=== PATIENT | male | born 1955 | race Two or more races ===

== ENCOUNTER 2018-11-15 13:14 | Inpatient (IN) | payer MEDICAID ==
[~2018-11-15] VITALS: Ht 165.1 cm; Wt 67.1 kg
--- NOTE | 2018-11-15 13:59 | NUR ---
"WEAKNESS X 1 MONTH WITH RASH ON L LOWER BACK X 2 DAYS" PT AAOX4, -SOB, NAD NOTED, VSS ,PENDING MD MILLER
[2018-11-15 14:23] LABS: BASOPHILS # (AUTO) 0.1 /CMM (0.0-0.2); EOSINOPHILS % (AUTO) 8.5 % (0.0-6.0); HEMATOCRIT 30 % (39-51); HEMOGLOBIN 10.3 g/dL (13.5-17.5); LYMPHOCYTES # (AUTO) 0.9 /CMM (0.8-4.8); LYMPHOCYTES % (AUTO) 13.8 % (20.0-44.0); MEAN CORPUSCULAR HGB CONC 34 g/dl (31.0-36.0); MEAN CORPUSCULAR VOLUME 96 fL (80-96); MONOCYTES # (AUTO) 0.9 /CMM (0.1-1.30); NEUTROPHILS # (AUTO) 4.2 /CMM (1.8-8.9); NEUTROPHILS % (AUTO) 63.7 % (43.0-81.0); PLATELET COUNT (AUTO) 218 /CMM (150-450); RED BLOOD CELL COUNT(AUTO) 3.14 MIL/uL (4.5-6.0); WHITE BLOOD COUNT (AUTO) 6.7 K/uL (4.3-11.0)
[2018-11-15] MEDS ORDERED: KETOROLAC TROMETHAMINE INJ 30 MG/ML VIAL IV ONE (14:30)
[2018-11-15] MEDS ORDERED: ONDANSETRON HCL/PF 4 MG/2 ML VIAL IVP ONE (14:30)
[2018-11-15] MEDS ORDERED: IV NS 0.9% 1,000 ML BAG IV ONE ×2 (14:30→15:30)
[2018-11-15 14:31] LABS: CALCIUM, SERUM 8.5 mg/dL (8.5-10.1); CREATININE 5.9 mg/dL (0.6-1.3); POTASSIUM 5.4 mmol/L (3.5-5.1)
--- NOTE | 2018-11-15 14:34 | NUR ---
ORDER FOR TORADOL 15MG IVP. PULLED TORADOL 30MG, WASTED 15MG, GIVEN TORADOL 15MG IVP ON LAC20
[2018-11-15] MEDS ORDERED: KETOROLAC TROMETHAMINE INJ 30 MG/ML VIAL ONE (14:36)
[2018-11-15] MEDS ORDERED: ONDANSETRON HCL/PF 4 MG/2 ML VIAL ONE (14:36)
[2018-11-15 14:37] LABS: ALBUMIN 3.2 g/dL (3.4-5.0); BILIRUBIN,DIRECT 0.1 mg/dL (0.0-0.2); BILIRUBIN,TOTAL 0.3 mg/dL (0.2-1.0); TOTAL PROTEIN, SERUM 7.8 g/dL (6.4-8.2)
[2018-11-15] MEDS ORDERED: ACYCLOVIR 200 MG CAPSULE PO ONE (16:30)
[2018-11-15] MEDS ORDERED: ACYCLOVIR 200 MG CAPSULE ONE (16:30)
--- NOTE | 2018-11-15 16:36 | NUR ---
CALLED FOR BED, TURNED IN MOVE SHEET
[2018-11-15 16:39] LABS: APPEARANCE,URINE Clear (CLEAR); BILIRUBIN,URINE Negative (NEGATIVE); BLOOD, URINE Small Ery/uL (NEGATIVE); COLOR,URINE Yellow (YELLOW); KETONES,URINE Negative (NEGATIVE); LEUKOCYTE ESTERASE ,URINE Negative (NEGATIVE); NITRITE, URINE Negative (NEGATIVE); PROTEIN,URINE >=300 mg/dl (NEGATIVE); UGLUCOSE 250 MG/DL mg/dL (NEGATIVE); UROBILINOGEN,URINE 0.2 EU/dL (0.2)
--- NOTE | 2018-11-15 16:59 | NUR ---
CALLED FOR COURTNEY JAY. OFFICE PAGED , WAITING FOR CALL BACK
[2018-11-15 17:06] LABS: BACTERIA,URINE Few /HPF (None Seen); SQUAMOUS EPITHELIAL CELL,UR Few /HPF (None Seen); WBC,URINE 0-2 /HPF (0-3)
--- NOTE | 2018-11-15 17:07 | NUR ---
REPORT GIVEN TO NIGEL GAYTAN FOR MARIANELA; PT WILL BE TRANSPORTED 1ST FLOOR
--- NOTE | 2018-11-15 17:20 | NUR ---
MS NURSE SEXUAL ASSAULT NOTES RECEIVED PT FROM ER TO ROOM 113-2.REPORT GIVEN BY SIMBA MANNING IN ER.PT IS LERT/ORIENTED X4,ESTONIAN SPEAKING.CAN AMBULATE WELL WITH MINIMAL ASSISTANCE.SKIN ASSESSMENT IS DONE NOTED WITH RASHES ON RIGHT LOWER BACK.PHOTOS HAS TAKEN AND PLACED IN THE CHART.IV LINE SI ON LEFT AC G20 WITH IV FLUIDS NS @100ML/HR IS RUNNING.SITE IS CLEAN,DRY AND INTACT.NO INFILTRATION NOTED.VITAL SIGNS ARE CHECKED AND RECORDED.FAMILY IS AT BEDSIDE.BED IS IN LOW POSITION AND LOCKED.CALL LIGHT IS WITHIN REACH.WILL CONTINUE TO MONITOR THE PT CLOSELY.
[2018-11-15 17:30] VITALS: BP 191/64
[2018-11-15] MEDS ORDERED: MAGNESIUM HYDROXIDE 30 ML UDC PO PRN (17:30)
[2018-11-15] MEDS ORDERED: MAG HYDROX/AL HYDROX/SIMETH 30 ML UDC PO PRN (17:30)
[2018-11-15] MEDS ORDERED: ACETAMINOPHEN 325 MG TABLET PO PRN (17:30)
[2018-11-15] MEDS ORDERED: ONDANSETRON HCL/PF 4 MG/2 ML VIAL IVP PRN (17:30)
[2018-11-15] MEDS ORDERED: Z GUARD REMEDY 2 OZ OINT TP PRN (17:30)
[2018-11-15] MEDS ORDERED: ZOLPIDEM TARTRATE 5 MG TABLET PO PRN (17:30)
[2018-11-15 17:45] VITALS: BP 191/65
[2018-11-15] MEDS: IV NS 0.9% 1,000 ML IV SCH (18:03)
--- NOTE | 2018-11-15 19:00 | NUR ---
MS RN CLOSING NOTES PT IS LYING ON BED.ALERT/ORIENTED X4.IV LINE IS IN PLACE.NO SIGNIFICANT CHNAGES NOTED IN THE SHIFT.ENDORSED TO STATE MANAGER RN FOR MARIANELA.
--- NOTE | 2018-11-15 20:00 | NUR ---
MS RN initial NOTES RECEIVED PT IS LERT/ORIENTED X4,MOHAWK SPEAKING.CAN AMBULATE WELL WITH MINIMAL ASSISTANCE.SKIN ASSESSMENT IS DONE NOTED WITH RASHES ON RIGHT LOWER BACK, ON CONTACT AND DROPLET FOR POSSIBLE SHINGLES.IV LINE ON LEFT AC G20 WITH IV FLUIDS NS @100ML/HR IS RUNNING.SITE IS CLEAN,DRY AND INTACT.NO INFILTRATION NOTED.VITAL SIGNS ARE CHECKED AND MONITORED. FAMILY IS AT BEDSIDE.BED IS IN LOW POSITION AND LOCKED.CALL LIGHT IS WITHIN REACH.WILL CONTINUE TO MONITOR PT.
[2018-11-15 21:00] VITALS: BP 190/86
[2018-11-15] MEDS: ACYCLOVIR IV 500 MG in IV NS 0.9% 100 ML IV SCH (22:03)
[2018-11-15] MEDS ORDERED: CLONIDINE HCL 0.1 MG TABLET PO PRN (23:30)
[2018-11-16 05:00] VITALS: BP 148/72
[2018-11-16] MEDS: ACYCLOVIR IV 500 MG in IV NS 0.9% 100 ML IV SCH ×3 (05:16→20:25)
[2018-11-16] MEDS: IV NS 0.9% 1,000 ML IV SCH ×2 (05:17→12:54)
--- NOTE | 2018-11-16 06:33 | NUR ---
MS RN CLOSING NOTES ENDORSED PT IS LERT/ORIENTED X4,LITHUANIAN SPEAKING.CAN AMBULATE WELL WITH MINIMAL ASSISTANCE.SKIN ASSESSMENT IS DONE NOTED WITH RASHES ON RIGHT LOWER BACK, ON CONTACT AND DROPLET FOR POSSIBLE SHINGLES.IV LINE ON LEFT AC G20 WITH IV FLUIDS NS @100ML/HR IS RUNNING.SITE IS CLEAN,DRY AND INTACT.NO INFILTRATION NOTED.VITAL SIGNS ARE CHECKED AND MONITORED. FAMILY IS AT BEDSIDE.BED IS IN LOW POSITION AND LOCKED.CALL LIGHT IS WITHIN REACH.WILL CONTINUE TO MONITOR PT.
[2018-11-16 07:03] LABS: CALCIUM, SERUM 7.9 mg/dL (8.5-10.1); MAGNESIUM 1.8 mg/dL (1.8-2.4); PHOSPHORUS 5.3 mg/dL (2.5-4.9); POTASSIUM 5.1 mmol/L (3.5-5.1)
[2018-11-16 07:04] LABS: BASOPHILS # (AUTO) 0.1 /CMM (0.0-0.2); BASOPHILS % (AUTO) 1.4 % (0.0-2.0); EOSINOPHILS % (AUTO) 9.5 % (0.0-6.0); HEMATOCRIT 26 % (39-51); HEMOGLOBIN 9.6 g/dL (13.5-17.5); LYMPHOCYTES # (AUTO) 0.7 /CMM (0.8-4.8); LYMPHOCYTES % (AUTO) 12.6 % (20.0-44.0); MEAN CORPUSCULAR HGB CONC 37 g/dl (31.0-36.0); MEAN CORPUSCULAR VOLUME 105 fL (80-96); MONOCYTES # (AUTO) 0.7 /CMM (0.1-1.30); MONOCYTES % (AUTO) 14.3 % (2.0-12.0); NEUTROPHILS # (AUTO) 3.3 /CMM (1.8-8.9); NEUTROPHILS % (AUTO) 62.2 % (43.0-81.0); PLATELET COUNT (AUTO) 187 /CMM (150-450); WHITE BLOOD COUNT (AUTO) 5.2 K/uL (4.3-11.0)
--- NOTE | 2018-11-16 07:15 | NUR ---
RN INITIAL NOTE PATIENT IN BED, AWAKE AND ALERT X4. ON ROOM AIR, NO SOB NOTED. HAS A LEFT AC #20 WITH NS AT 100 ML/HR. PER NOC SHIFT, PATIENT'S SBP LAST NIGHT WAS 190. WAS GIVEN CLONODINE 0.2 X1 NOW. WHEN ASKED IF PATIENT HAS PAIN, PATIENT STATED THAT HIS LEFT LEG IS HURTING A LITTLE PROBABLY BECAUSE OF BEING IN BED FOR LONG. PATIENT REFUSED ANY PHARMACOLOGICAL/ NON-PHARMACOLOGICAL TX FOR THIS PAIN. BED LOCKED AND IN LOWEST POSITION. CALL LIGHT WITHIN REACH. WILL CONTINUE TO MONITOR
[2018-11-16 08:00] VITALS: BP 114/72
[2018-11-16] MEDS: HYDROCODONE/APAP 5/325MG 1 EACH TABLET PO PRN (12:50)
[2018-11-16 16:00] VITALS: BP 123/53
--- NOTE | 2018-11-16 18:42 | NUR ---
RN CLOSING NOTE PATIENT AWAKE AND ALERT. FAMILY AT BEDSIDE. NO COMPLAINS OF ANY PAIN AT THIS TIME. ON ROOM AIR, NO SOB. HAS LEFT AC #20 WITH NS AT 100 ML/HR. NORCO GIVEN AT 1250. PER MD, CONT IV FLUIDS AND ANBX. BED LOCKED AND IN LOWEST POSITION. CALL LIGHT WITHIN REACH. WILL ENDORSE TO NOC SHIFT FOR MARIANELA
[2018-11-16 20:00] VITALS: BP 159/73
--- NOTE | 2018-11-16 20:00 | NUR ---
MS RN NOTES RECEIVED PTS IN BED AWAKE ALERT AND RESPONSIVE ABLE TO MAKE NEEDS KNOWN , NO SOB NO DISTRESS NOTED V/S STABLE AFEBRILE ,ON R/A SATING 98% , ON AIRBORNE ISOLATION , PRECAUTIONARY PRECAUTION OBSERVED AT ALL TIMES . PTS IS AMBULATORY WITH , NO C/O OF PAIN AT THIS TIME . ON IVF OF NS AT 100CC/HR INFUSING WELL. LEFT AC G#20 INTACT AND PATENT , ALL NEEDS ATTENDED TOO, DUE MEDS GIVEN ORDERED. CALL LIGHT WITHIN REACH ,SAFETY PRECAUTION MAINTAINED ,BED ALARM ON ,KEPT PTS CLEAN DRY AND COMFORTABLE.WILL CONTINUE TO MONITOR PTS.
[2018-11-17] MEDS: IV NS 0.9% 1,000 ML IV SCH ×3 (00:13→19:30)
[2018-11-17] MEDS: HYDROCODONE/APAP 5/325MG 1 EACH TABLET PO PRN ×3 (00:21→18:49)
[2018-11-17 04:00] VITALS: BP 170/90
--- NOTE | 2018-11-17 04:00 | NUR ---
MS RN NOTES BLOOD PRESSURE 170/90 ,CLONIDINE 0.1 MG GIVEN ORDERED.
[2018-11-17] MEDS: CLONIDINE HCL 0.1 MG TABLET PO PRN ×2 (04:01→09:56)
[2018-11-17] MEDS: ACYCLOVIR IV 500 MG in IV NS 0.9% 100 ML IV SCH ×3 (05:18→21:08)
--- NOTE | 2018-11-17 06:00 | NUR ---
ms rn notes blood pressure at 6am 160/78 will continue to monitor pts.
[2018-11-17 06:36] LABS: ALBUMIN 2.5 g/dL (3.4-5.0); BILIRUBIN,TOTAL 0.3 mg/dL (0.2-1.0); CALCIUM, SERUM 7.9 mg/dL (8.5-10.1); CREATININE 4.6 mg/dL (0.6-1.3); MAGNESIUM 1.5 mg/dL (1.8-2.4); PHOSPHORUS 4.2 mg/dL (2.5-4.9); POTASSIUM 4.5 mmol/L (3.5-5.1); TOTAL PROTEIN, SERUM 6.7 g/dL (6.4-8.2)
[2018-11-17 06:45] LABS: BASOPHILS # (AUTO) 0.1 /CMM (0.0-0.2); BASOPHILS % (AUTO) 1.5 % (0.0-2.0); EOSINOPHILS % (AUTO) 9.8 % (0.0-6.0); HEMATOCRIT 24 % (39-51); HEMOGLOBIN 9.3 g/dL (13.5-17.5); LYMPHOCYTES # (AUTO) 0.7 /CMM (0.8-4.8); LYMPHOCYTES % (AUTO) 15.7 % (20.0-44.0); MEAN CORPUSCULAR HGB CONC 39 g/dl (31.0-36.0); MEAN CORPUSCULAR VOLUME 103 fL (80-96); MONOCYTES # (AUTO) 0.8 /CMM (0.1-1.30); MONOCYTES % (AUTO) 18.2 % (2.0-12.0); NEUTROPHILS # (AUTO) 2.4 /CMM (1.8-8.9); NEUTROPHILS % (AUTO) 54.8 % (43.0-81.0); PLATELET COUNT (AUTO) 181 /CMM (150-450); RED BLOOD CELL COUNT(AUTO) 2.32 MIL/uL (4.5-6.0); WHITE BLOOD COUNT (AUTO) 4.3 K/uL (4.3-11.0)
--- NOTE | 2018-11-17 06:48 | NUR ---
pts in bed awake and responsive , no sob no distress noted , continue on iv at ns 100cc/hr well tolerated , all needs attended too due meds given as ordered , will endorse to Rn day shift for continuty of care.
[2018-11-17 07:29] LABS: URINE TOTAL PROTEIN 119.5 mg/dL (0-11.9)
[2018-11-17 07:34] LABS: APPEARANCE,URINE CLEAR (CLEAR); BILIRUBIN,URINE NEGATIVE (NEGATIVE); BLOOD, URINE 1+ Ery/uL (NEGATIVE); COLOR,URINE YELLOW (YELLOW); KETONES,URINE NEGATIVE (NEGATIVE); LEUKOCYTE ESTERASE ,URINE NEGATIVE (NEGATIVE); NITRITE, URINE NEGATIVE (NEGATIVE); PH,URINE 5.5 (5.0-8.0); PROTEIN,URINE 2+ mg/dl (NEGATIVE); UGLUCOSE TRACE mg/dL (NEGATIVE); UROBILINOGEN,URINE 0.2 EU/dL (0.2)
--- NOTE | 2018-11-17 07:35 | NUR ---
RN OPENING NOTES RECEIVED PATIENT RESTING IN BED COMFORTABLY, SHOWS NO S/SX OF DISTRESS, DENIES ANY PAIN. HE IS AO X3, GOOD MOOD, AMBULATORY. HE IS ON ROOM AIR AND SHOWS NO SIGNS OF SOB OR RESP DISTRESS. HE HAS A LAC 20 G RUNNING NS AT 100 ML/HR. HE HAS A SKIN RASH ON LOWER LEFT BACK, SHINGLES. HE IS ON AIRBORNE PRECAUTIONS. N95 MASK REQUIRED. HE IS ON A REGULAR DIET. SAFETY MEASURES HAVE BEEN IMPLEMENTED, CALL LIGHT WITHIN REACH, BED IN LOWEST AND LOCKED POSITION, SIDE RAILS UP X2, WILL CONTINUE TO MONITOR FOR ANY CHANGES.
[2018-11-17 08:00] VITALS: BP 169/88
[2018-11-17 08:02] LABS: WBC,URINE 0-2 /HPF (0-3)
[2018-11-17 08:03] LABS: BACTERIA,URINE None seen /HPF (None Seen); SQUAMOUS EPITHELIAL CELL,UR Rare /HPF (None Seen)
[2018-11-17 09:36] LABS: BAND % (MANUAL) 3 % (0.0-5.0); EOSINOPHILS % (MANUAL) 13 % (0-4); LYMPHOCYTES % (MANUAL) 13 % (16-48); MONOCYTES % (MANUAL) 25 % (0-11.0); NEUTROPHILS % (MANUAL) 46 (42-76)
[2018-11-17 09:41] LABS: EOSINOPHIL,URINE None Seen
--- NOTE | 2018-11-17 12:00 | NUR ---
PATIENT'S FAMILY CONTINUES TO NOT WEAR PPE. PATIENT IS ON AIRBORNE PRECAUTION BECAUSE OF SHINGLES, FAMILY HAS BEEN INFORMED MULTIPLE TIMES ON THE IMPORTANCE OF WEARING AN N95 RESPIRATOR MASK.
[2018-11-17 16:00] VITALS: BP 167/93
[2018-11-17] MEDS: DOCUSATE SODIUM 100 MG CAPSULE PO SCH (16:49)
[2018-11-17] MEDS: hydrALAZINE HCL 25 MG TABLET PO PRN (17:19)
--- NOTE | 2018-11-17 17:25 | NUR ---
1700 BLOOD PRESSURE WAS 167/93, GAVE PRN DOSE OF HYDRALAZINE. WILL REASSESS
--- NOTE | 2018-11-17 19:45 | NUR ---
RN NOTES [facility] FOUND Pt AWAKE, RESTING IN BED. FAMILY VISITING AT BEDSIDE. PER Pt's & FAMILY REQUEST WANTS TO BE ABLE TO TAKE A SHOWER BEFORE BED. WILL OBTAIN SHOWER ORDER FROM [facility] HOSPITALIST. IV ACCESS ON LWRIST #22G. HAS IVF ORDERS FOR NS @100ML/HR. PER REPORT, NIGEL ALMARAZ HELD THE IV FLUIDS DUE TO Pt's ELEVATED BP. SAFETY MEASURES IN PLACE. WILL CONTINUE TO MONITOR Pt's CONDITION AND SAFETY THROUGHOUT THE NIGHT.
--- NOTE | 2018-11-17 19:47 | NUR ---
RN CLOSING NOTES PATIENT IS RESTING IN BED COMFORTABLY IN BED WITH FAMILY AT BEDSIDE, HE AOX4, SLOVAK SPEAKING, AND AMBULATORY. HE CAME IN FOR WOUNDS ON BACK, SHINGLES. SAFETY MEASURES HAVE BEEN IMPLEMENTED, CALL LIGHT WITHIN REACH, BED IN LOWEST AND LOCKED POSITION, PATIENT HAS BEEN ENDORSED TO NIGHTSHIFT NURSE.
--- NOTE | 2018-11-17 20:00 | NUR ---
RN NOTES HELD THE 193 0.9%NS IVF. PER DAYSHIFT RN REPORT Pt's BP WAS TOO ELEVATED, SO RN HELD IV FLUIDS. HYDRALAZINE WAS ALREADY GIVEN TO Pt PRIOR TO CHANGE OF SHIFT. WILL REASSESS Pt's BP. WILL KEEP Pt OFF IVF FOR NOW. Pt STILL HAS FLUIDS REMAINING IN THE BAG & WILL CONT IV HYDRATION ONCE ELEVATED BP IS RESOLVED.
[2018-11-17] MEDS: POLYETHYLENE GLYCOL 3350 17 GM POWD.PACK PO SCH (21:31)
--- NOTE | 2018-11-17 23:23 | NUR ---
RN NOTES IV ON LEFT HAND INFILTRATED. REMOVED AND SECURED WITH GAUZE AND TAPE. NO SIGNS OF BLEEDING NOTED. NEW IV ACCESS ON LFA #22G.
[2018-11-18] VITALS: BP 192/83
[2018-11-18] MEDS: hydrALAZINE HCL 25 MG TABLET PO PRN ×3 (01:27→17:20)
--- NOTE | 2018-11-18 01:35 | NUR ---
RN NOTES Pt's BP REMAINED ELEVATED. CURRENT BP: 198/92, HR 82. ADMINISTERED PRN HYDRALAZINE 25MG.
--- NOTE | 2018-11-18 05:15 | NUR ---
RN NOTES SPOKE WITH [facility] HOSPITALIST: ETHAN SHELDON. INFORMED HIM OF Pt's CONTINUED ELEVATED BP. CURRENT BP 207/98. MADE AWARE THAT Pt HAS BEEN OFF OF CONT. IVF SINCE CHANGE OF SHIFT & STILL Pt's BP IS ELEVATED RECEIVED X1 ORDER FOR CLONIDINE 0.1MG PO. WILL CARRY OUT ORDER AT ONCE.
[2018-11-18] MEDS: ACYCLOVIR IV 500 MG in IV NS 0.9% 100 ML IV SCH ×3 (05:20→20:59)
[2018-11-18] MEDS: IV NS 0.9% 1,000 ML IV SCH (05:21)
[2018-11-18] MEDS ORDERED: CLONIDINE HCL 0.1 MG TABLET PO ONE (05:30)
--- NOTE | 2018-11-18 06:34 | NUR ---
RN CLOSING NOTES NO SIGNIFICANT CHANGES IN Pt's CONDITION. Pt REMAINS STABLE PER BASELINE. NO S/S OF ACUTE DISTRESS OR SOB NOTED DURING THE NIGHT. ALL NEEDS MET AND ATTENDED TO. SAFETY MEASURES IN PLACE. IV ACCESS ON LFA #22G INTACT & PATENT. HAT PLACED IN TOILET FOR STOOL OB COLLECTION. Pt HAS NOT MADE A BM DURING THE NIGHT. WILL ENDORSE TO DAYSHIFT RN FOR Pt's MARIANELA.
[2018-11-18 07:14] LABS: CALCIUM, SERUM 7.9 mg/dL (8.5-10.1); CREATININE 4.4 mg/dL (0.6-1.3); POTASSIUM 4.7 mmol/L (3.5-5.1)
[2018-11-18 07:26] LABS: BASOPHILS # (AUTO) 0.1 /CMM (0.0-0.2); BASOPHILS % (AUTO) 2.1 % (0.0-2.0); EOSINOPHILS % (AUTO) 9.7 % (0.0-6.0); HEMATOCRIT 25 % (39-51); HEMOGLOBIN 9.7 g/dL (13.5-17.5); LYMPHOCYTES # (AUTO) 0.7 /CMM (0.8-4.8); LYMPHOCYTES % (AUTO) 20.4 % (20.0-44.0); MEAN CORPUSCULAR HGB CONC 39 g/dl (31.0-36.0); MEAN CORPUSCULAR VOLUME 106 fL (80-96); MONOCYTES # (AUTO) 0.7 /CMM (0.1-1.30); MONOCYTES % (AUTO) 21.6 % (2.0-12.0); NEUTROPHILS # (AUTO) 1.5 /CMM (1.8-8.9); NEUTROPHILS % (AUTO) 46.2 % (43.0-81.0); PLATELET COUNT (AUTO) 171 /CMM (150-450); RED BLOOD CELL COUNT(AUTO) 2.35 MIL/uL (4.5-6.0); WHITE BLOOD COUNT (AUTO) 3.3 K/uL (4.3-11.0)
[2018-11-18 08:00] VITALS: BP 162/75
[2018-11-18] MEDS: DOCUSATE SODIUM 100 MG CAPSULE PO SCH ×2 (08:20→16:28)
[2018-11-18] MEDS ORDERED: AMLODIPINE BESYLATE 5 MG TABLET PO SCH (09:30)
[2018-11-18] MEDS: NICOTINE PATCH (21MG) 21 MG PATCH.TD24 TD SCH (11:22)
--- NOTE | 2018-11-18 12:38 | NUR ---
rn notes [id number]-icujivn awake, alert, denies pain. vs taken , resutlst noted. 1000-Dr. White notified of patient BP, MD with orders. patient family at bedside, educated them of handwashign, use of PPE. 1100-seen by Dr. Isidro MD updated of patient status. 1230-patient ambulates with FWW safely, encouraged him to use call light, he agreed.
[2018-11-18 16:00] VITALS: BP 192/80
--- NOTE | 2018-11-18 18:06 | NUR ---
RN NOTES 1600-PATIENT WITH FREQUENT VISITORS, THEY WERE EDUCATED OF IMPORTANCE OF USING PPE. NEEDED TO REMIND THEM, INSTRUCTED THEM TO TGELL OTHER VISITORS TO WEAR PPE 1730-BP NOTED, PATIENT DENIES PAIN, RESTING WELL. VISITORS AT BEDSIDE.
--- NOTE | 2018-11-18 19:30 | NUR ---
RN OPENING NOTES RECEIVED PATIENT ON BED AWAKE/ALERT X4, NO SIGNIFICANT CHANGES IN Pt's CONDITION. PATIENT STABLE, NO S/S OF ACUTE DISTRESS OR SOB NOTED AT THIS TIME. A GROUP OF FAMILY AT BEDSIDE. V ACCESS ON LFA #22G INTACT & PATENT. SAFETY MEASURES IN PLACE. BED LOW/LOCKED, CALL LIGHT WITHIN REACH. WILL CONTINUE TO MONITOR.
--- NOTE | 2018-11-18 19:42 | NUR ---
RN NOTES 1909-PATIENT AWAKE, ALERT, DENIES PAIN, FAMILY AT BEDSIDE. REPORT GIVEN TO RN FOR FURTHER CARE
[2018-11-18 20:00] VITALS: BP 189/88
[2018-11-18] MEDS: POLYETHYLENE GLYCOL 3350 17 GM POWD.PACK PO SCH (22:03)
[2018-11-19 04:00] VITALS: BP 189/95
[2018-11-19] MEDS: ACYCLOVIR IV 500 MG in IV NS 0.9% 100 ML IV SCH ×2 (04:50→13:52)
[2018-11-19] MEDS ORDERED: METOPROLOL SUCCINATE 50 MG TAB.SR.24H PO SCH (06:30)
[2018-11-19 06:34] LABS: BASOPHILS # (AUTO) 0.1 /CMM (0.0-0.2); BASOPHILS % (AUTO) 1.3 % (0.0-2.0); EOSINOPHILS % (AUTO) 6.3 % (0.0-6.0); HEMATOCRIT 26 % (39-51); HEMOGLOBIN 10.3 g/dL (13.5-17.5); MEAN CORPUSCULAR HGB CONC 40 g/dl (31.0-36.0); MEAN CORPUSCULAR VOLUME 101 fL (80-96); MONOCYTES # (AUTO) 0.8 /CMM (0.1-1.30); MONOCYTES % (AUTO) 17.5 % (2.0-12.0); NEUTROPHILS # (AUTO) 2.6 /CMM (1.8-8.9); NEUTROPHILS % (AUTO) 53.9 % (43.0-81.0); PLATELET COUNT (AUTO) 192 /CMM (150-450); RED BLOOD CELL COUNT(AUTO) 2.57 MIL/uL (4.5-6.0); WHITE BLOOD COUNT (AUTO) 4.7 K/uL (4.3-11.0)
[2018-11-19 06:51] LABS: ALBUMIN 2.8 g/dL (3.4-5.0); BILIRUBIN,TOTAL 0.3 mg/dL (0.2-1.0); CALCIUM, SERUM 8.3 mg/dL (8.5-10.1); CREATININE 4.1 mg/dL (0.6-1.3); MAGNESIUM 1.4 mg/dL (1.8-2.4); PHOSPHORUS 3.8 mg/dL (2.5-4.9); POTASSIUM 4.3 mmol/L (3.5-5.1); TOTAL PROTEIN, SERUM 7.4 g/dL (6.4-8.2)
--- NOTE | 2018-11-19 06:57 | NUR ---
RN CLOSING NOTES PATIENT IN BED AWAKE/ALERT X4, NO SIGNIFICANT CHANGES IN Pt's CONDITION DURING PLANT TENDER. PATIENT STABLE, NO S/S OF ACUTE DISTRESS OR SOB NOTED AT THIS TIME. IV ACCESS ON LFA #22G INTACT & PATENT, NO INFILTRATION NOTED. SAFETY MEASURES IN PLACE. BED LOW/LOCKED, CALL LIGHT WITHIN REACH. WILL ENDORSE TO AM RN FOR MARIANELA.
[2018-11-19 08:00] VITALS: BP 194/89
--- NOTE | 2018-11-19 08:00 | NUR ---
MS RN NOTES PT IS IN THE BED , ALERT ORIENTEDE X4, NO SOB ON ROOM AIR. ABLE TO AMBULATE TO RESTROOM WITH WALKER.LEFT FOREARM LFA HL INTACT AND FLUSHED WELL. PLAN OF CARE DISCUSSED WITH PT UNDERSTOOD CALL LIGHT WITHIN REACH ALL SAFETY PRECAUTION IN PLACE . FAMILY AT BEDSIDE.MAGNESIUM 1.4 STARTED ADMINISTRATED ORDERED . WILL CONTINUE TO MONITOR.
[2018-11-19] MEDS: NICOTINE PATCH (21MG) 21 MG PATCH.TD24 TD SCH (08:28)
[2018-11-19] MEDS: Magnesium 1GM/D5W 100ML PREMIX 100 ML IV SCH ×2 (08:28→09:51)
[2018-11-19] MEDS: DOCUSATE SODIUM 100 MG CAPSULE PO SCH (08:28)
[2018-11-19] MEDS ORDERED: Magnesium 1 GM/2 ML VIAL IV ONE (08:30)
[2018-11-19] MEDS ORDERED: AMLODIPINE BESYLATE 5 MG TABLET PO SCH (09:00)
[2018-11-19] MEDS ORDERED: METO50TA7 PO (09:51)
[2018-11-19] MEDS ORDERED: ACYC400T PO (09:51)
[2018-11-19] MEDS ORDERED: AMLO5TAB9 PO (09:51)
[2018-11-19] MEDS ORDERED: METOPROLOL SUCCINATE 50 MG TAB.SR.24H PO ONE (10:00)
[2018-11-19 10:07] LABS: *SPE A/G RATIO 0.9 (0.7-1.7); *SPE ALBUMIN 2.9 g/dL (2.9-4.4); *SPE ALPHA-1-GLOBULIN 0.2 g/dL (0.0-0.4); *SPE ALPHA-2-GLOBULIN 0.8 g/dL (0.4-1.0); *SPE BETA GLOBULIN 0.8 g/dL (0.7-1.3); *SPE GLOBULIN, TOTAL 3.2 g/dL (2.2-3.9); *SPE M-SPIKE Not Observed g/dL (Not Observed); *SPEGAMMA GLOBULIN 1.5 g/dL (0.4-1.8)
--- NOTE | 2018-11-19 10:25 | NUR ---
MS RN NOTES SEEN BY DR GUADALUPE ORDERED TOPROL-XL 50 MG. ORDERED PHYSICAL THERAPY. PT WILL BE DISCHARGED TODAY AFTERNOON.
[2018-11-19 12:00] VITALS: BP 172/85
[2018-11-19] MEDS: hydrALAZINE HCL 25 MG TABLET PO PRN (12:14)
--- NOTE | 2018-11-19 13:00 | NUR ---
MS RN NOTE PER DR IRVING HAY TO GIVE CLONIDINE BP 170\76 NOW AND Q8 HOUR
[2018-11-19 13:09] LABS: PTH, INTACT 71 pg/mL (15-65)
[2018-11-19] MEDS ORDERED: CLONIDINE HCL 0.1 MG TABLET PO ONE (13:30)
--- NOTE | 2018-11-19 13:32 | NUR ---
ms rn note spoke with dr zavala notified that bp 170/79 ok to give clonidine 0.1 ,mg now and prn will f\u
--- NOTE | 2018-11-19 13:49 | NUR ---
MS RN NOTE CALLED PHARMACY 2 TIMES FOR ZOVIRAX AND MEDICATION NOT AVAILABLE.
[2018-11-19 16:00] VITALS: BP 145/70
--- NOTE | 2018-11-19 16:00 | NUR ---
MS RN NOTE BP 145/78, NO C\O CHEST PAIN OR DIZZINESS, OK TO TO DISCHARGE TO HOME , OK TO HAVE WALKER AT HOME , DISCHARGE INSTRUCTION GIVEN TO PATIENT AND DAUGHTER AT BEDSIDE,EXPLAINED HOW TO TAKE HOME MEDS AND NEW PX AND POSSIBLE SIDE EFFECTS,PRESCRIPTION GIVEN . HL REMOVED. NO BLEEDING OR SIGN OF INFECTION. BELONGINGS SIGNED . INSTRUCTED PT HOW TO FOLLOW UP WITH PRIMARY CARE DR AND TRAFFIC I MANAGER AND [facility] [place]. PT HAS NO INSURANCE AND COMPLIANCE VICE PRESIDENT NOTIFIED.PLACED PT ON THE WHEELCHAIR TAKING TO THE LOBBY WITH STABLE CONDITION AND ACCOMPANIED BY FAMILY MEMBER.
[2018-11-19] MEDS ORDERED: CLONIDINE HCL 0.1 MG TABLET PO SCH (21:00)
== END 2018-11-19 17:42 | disposition home or self-care (01) | DRG 469 ==
LOC: ER 13:14 → MEDSG1 16:46
PROVIDERS: ADMIT Family Medicine; ATTEND Family Medicine
DX: N17.0 Acute kidney failure with tubular necrosis (principal); E44.0 Moderate protein-calorie malnutrition; I12.0 Hypertensive chronic kidney disease with stage 5 chronic kidney disease or end stage renal disease; E87.5 Hyperkalemia; E87.1 Hypo-osmolality and hyponatremia; E88.09 Other disorders of plasma-protein metabolism, not elsewhere classified; B02.9 Zoster without complications; N18.5 Chronic kidney disease, stage 5; D63.8 Anemia in other chronic diseases classified elsewhere; F10.10 Alcohol abuse, uncomplicated; Y90.0 Blood alcohol level of less than 20 mg/100 ml; F17.210 Nicotine dependence, cigarettes, uncomplicated; R73.9 Hyperglycemia, unspecified; K86.0 Alcohol-induced chronic pancreatitis; Z68.24 Body mass index [BMI] 24.0-24.9, adult; K59.00 Constipation, unspecified
CPT/HCPCS: 36415; 80048-TC; 80053-TC; 80061-TC; 80076-TC; 80305; 81000-TC; 82550-TC; 82570-TC; 82728-TC; 83540-TC; 83690-TC; 83735-TC; 83970; 84100-TC; 84155; 84155-TC; 84165; 84300-TC; 85025-TC; 86706; 86803; 87081-TC; 87340; 97116-TC; 97530-TC; G0378; G0480; J0133; J1885; J2405; J3475; J7030; J7040

== ENCOUNTER 2018-12-27 12:52 | Inpatient (IN) | payer MEDICARE, MEDICAID ==
[~2018-12-27] VITALS: Ht 162.6 cm; Wt 62.1 kg
[~2018-12-27 12:52] MED LIST: ACYC400T PO; AMLO5TAB9 PO; METO50TA7 PO
[2018-12-27] MEDS ORDERED: ONDANSETRON HCL/PF 4 MG/2 ML VIAL IVP ONE (13:30)
[2018-12-27] MEDS ORDERED: IV NS 0.9% 1,000 ML BAG IV ONE (13:30)
[2018-12-27] MEDS ORDERED: MORPHINE SULFATE INJ 2 MG/ML DISP.SYRIN IV ONE (13:30)
[2018-12-27] MEDS ORDERED: MORPHINE SULFATE INJ 4 MG/ML DISP.SYRIN ONE (13:35)
[2018-12-27] MEDS ORDERED: ONDANSETRON HCL/PF 4 MG/2 ML VIAL ONE (13:35)
--- NOTE | 2018-12-27 13:35 | NUR ---
"Lower abdominal pain/back pain/swelling on groin area xcouple days". PT AAOX4, VSS. RR EVEN & UNLABORED. DENIES CP, SOB, DIZZINESS, N/V @ THIS TIME. SEEN & EVAL'D BY WANDA GAN. MEDICATED ORDERED & WILL CONT TO MONITOR. DAUGHTER @ BS.
[2018-12-27 13:52] LABS: BASOPHILS # (AUTO) 0.1 /CMM (0.0-0.2); BASOPHILS % (AUTO) 1.2 % (0.0-2.0); EOSINOPHILS % (AUTO) 9.1 % (0.0-6.0); HEMATOCRIT 26 % (39-51); HEMOGLOBIN 9.3 g/dL (13.5-17.5); LYMPHOCYTES # (AUTO) 1.3 /CMM (0.8-4.8); LYMPHOCYTES % (AUTO) 15.9 % (20.0-44.0); MEAN CORPUSCULAR HGB CONC 36 g/dl (31.0-36.0); MEAN CORPUSCULAR VOLUME 102 fL (80-96); MONOCYTES # (AUTO) 0.8 /CMM (0.1-1.30); MONOCYTES % (AUTO) 10.1 % (2.0-12.0); NEUTROPHILS # (AUTO) 5.1 /CMM (1.8-8.9); NEUTROPHILS % (AUTO) 63.7 % (43.0-81.0); PLATELET COUNT (AUTO) 182 /CMM (150-450); RED BLOOD CELL COUNT(AUTO) 2.54 MIL/uL (4.5-6.0)
[2018-12-27 14:08] LABS: CALCIUM, SERUM 8.7 mg/dL (8.5-10.1); POTASSIUM 5.4 mmol/L (3.5-5.1)
[2018-12-27 14:14] LABS: ALBUMIN 3.4 g/dL (3.4-5.0); BILIRUBIN,DIRECT 0.1 mg/dL (0.0-0.2); BILIRUBIN,TOTAL 0.3 mg/dL (0.2-1.0); TOTAL PROTEIN, SERUM 8.2 g/dL (6.4-8.2)
[2018-12-27] MEDS ORDERED: METO25TA3 PO (15:25)
[2018-12-27] MEDS ORDERED: AMLO10TA7 PO (15:25)
[2018-12-27 15:26] LABS: APPEARANCE,URINE Clear (CLEAR); BILIRUBIN,URINE Negative (NEGATIVE); BLOOD, URINE Small Ery/uL (NEGATIVE); COLOR,URINE Yellow (YELLOW); KETONES,URINE Negative (NEGATIVE); LEUKOCYTE ESTERASE ,URINE Negative (NEGATIVE); NITRITE, URINE Negative (NEGATIVE); PROTEIN,URINE >=300 mg/dl (NEGATIVE); UGLUCOSE 100 MG/DL mg/dL (NEGATIVE); UROBILINOGEN,URINE 0.2 EU/dL (0.2)
--- NOTE | 2018-12-27 15:33 | NUR ---
CALLED NURSING SUP FOR TELE BED.
[2018-12-27 15:39] LABS: BACTERIA,URINE Few /HPF (None Seen); SQUAMOUS EPITHELIAL CELL,UR Few /HPF (None Seen); WBC,URINE 0-2 /HPF (0-3)
[2018-12-27 15:40] LABS: MUCUS,URINE Few /LPF (None Seen); URINE AMORPHOUS URATE Few /HPF (None Seen)
--- NOTE | 2018-12-27 15:58 | NUR ---
PAGED [facility].
--- NOTE | 2018-12-27 17:21 | NUR ---
BALWINDER MINAYA GAVE BED 314-2. NURSE IS GOING TO BE RENETTA.
[2018-12-27] MEDS ORDERED: MAG HYDROX/AL HYDROX/SIMETH 30 ML UDC PO PRN (17:30)
[2018-12-27] MEDS ORDERED: ACETAMINOPHEN 325 MG TABLET PO PRN (17:30)
[2018-12-27] MEDS ORDERED: ONDANSETRON HCL/PF 4 MG/2 ML VIAL IVP PRN (17:30)
[2018-12-27] MEDS ORDERED: MAGNESIUM HYDROXIDE 30 ML UDC PO PRN (17:30)
[2018-12-27] MEDS ORDERED: MORPHINE SULFATE INJ 2 MG/ML DISP.SYRIN IV PRN (17:30)
[2018-12-27] MEDS ORDERED: IV 1/2NS 1000 ML 1,000 ML IV PRN (17:30)
[2018-12-27] MEDS ORDERED: Z GUARD REMEDY 2 OZ OINT TP PRN (17:30)
[2018-12-27] MEDS ORDERED: ZOLPIDEM TARTRATE 5 MG TABLET PO PRN (17:30)
--- NOTE | 2018-12-27 17:40 | NUR ---
REPORT GIVEN TO JUAN DANIEL MATHEWS FOR MARIANELA.
--- NOTE | 2018-12-27 17:50 | NUR ---
ADMISSION NOTE PT BROUGHT UP VIA GURNEY AT THIS TIME, A/O X4 AFGHAN SPEAKING, BREATHING EVEN AND UNLABORED ON RA WITH NO S/S OF ANY DISTRESS OR PAIN NOTED AT THIS TIME, IV IS PATENT AND INTACT, NOTED TO BACK AND R BUTTOCK DISCOLORATION, SAFETY PRECAUTIONS IN PLACE, CALL LIGHT IN REACH, WILL MONITOR ACCORDINGLY
[2018-12-27] MEDS ORDERED: LORAZEPAM INJ 2 MG/ML VIAL IV STA (18:30)
--- NOTE | 2018-12-27 18:38 | NUR ---
RN NOTE CONSENT OBTAINED FOR HD CATH PLACEMENT, CATH PLACED BY , IV ATIVAN 0.5 MG GIVEN BEFORE START OF PROCEDURE.
--- NOTE | 2018-12-27 19:06 | NUR ---
CLOSING NOTE PT IN BED AT LOWEST AND LOCKED POSITION WITH SIDE RAILS UP X2, A/O X4 BREATHING EVEN ADN UNLABORED ON RA WITH NO S/S OF ANY DISTRESS OR PAIN AT THIS TIME, HD CATH PLACED BY WITH CONSENT SIGNED AND HEMODIALYSIS BEING DONE NOW, IV IS PATENT AND INTACT, FAMILY AT BEDSIDE, WILL ENDORSE MRSA SWAB AND PHOTOS TO NIGHT RN, SAFETY PRECAUTIONS IN PLACE, CALL LIGHT IN REACH, WILL ENDORSE TO NIGHT RN FOR MARIANELA.
--- NOTE | 2018-12-27 19:30 | NUR ---
NATURE PHOTOGRAPHER OPENING NOTE RECEIVED PATIENT IN BED. A/O X4. TOLERATING ROOM AIR. RESPIRATIONS ARE EVEN AND UNLABORED. NO SOB NOTED. DENIES PAIN AT THIS TIME. EXTERNAL TELE MONITOR READS SR WITH PVC HR 76. NO APPARENT DISTRESS. IV ACCESS IN RAC#20 PATENT AND SL. BED IS LOW AND LOCKED, SIDE RAILS UP X2, HOB FLAT. CALL LIGHT WITHIN REACH. FAMILY AT THE BEDSIDE. WILL CONTINUE TO MONITOR.
[2018-12-27 20:00] VITALS: BP 194/94
[2018-12-27] MEDS: METOPROLOL SUCCINATE 50 MG TAB.SR.24H PO SCH (22:32)
[2018-12-27] MEDS ORDERED: AMLODIPINE BESYLATE 10 MG TABLET PO ONE (23:59)
[2018-12-28] VITALS: BP 160/89
[2018-12-28] MEDS ORDERED: AMLODIPINE BESYLATE 10 MG TABLET PO SCH
--- NOTE | 2018-12-28 | NUR ---
ENERGY MANAGER NOTE DIALYSIS NURSE REPORTED OUTPUT 100ML. BP POST HD IS 192/91 HR95. WILL NOTIFY MD. NOTIFIED , OF THE PATIENTS BLOOD PRESSURE AND THAT THE MEDICATION RECONCILIATION HAS NOT BE REVIEWED BY AN MD. INFORMED PATIENTS HOME MEDS ARE AMLODIPINE 100MG DAILY AND NORVASC 10MG DAILY. TELEPHONE ORDER 100MG AMLODIPINE ONE TIME NOW, REASSESS IN ONE HOUR. IF BP IS STILL HIGH ADMINISTERED 10MG NORVASC. READ BACK, NOTED, CARRIED OUT. REASSESSED BP 160/89 HR 70. NORVASC ADMINISTERED.
[2018-12-28 04:00] VITALS: BP 157/73
--- NOTE | 2018-12-28 06:30 | NUR ---
HARDWOOD FINISHER CLOSING NOTE PATIENT IN BED. A/O X4. REMAINS TOLERATING ROOM AIR. RESPIRATIONS ARE EVEN AND UNLABORED. NO SOB NOTED THROUGHOUT SHIFT. EXTERNAL TELE MONITOR READS SR WITH PVC AND BBB HR 76. NO DISTRESS NOTED. IV ACCESS MAINTAINED IN RAC#20 PATENT AND SL. BED IS LOW AND LOCKED, SIDE RAILS UP X2, HOB FLAT. CALL LIGHT WITHIN REACH. WILL ENDORSE TO NEXT SHIFT FOR MARIANELA.
--- NOTE | 2018-12-28 07:30 | NUR ---
EMPLOYMENT LAW ATTORNEY NOTES PT AWAKE, ALERT AND ORIENTED, NO COMPLAINT OF PAIN OR ANY DISCOMFORT, RESPIRATIONS NORMAL, CALL LIGHT WITHIN REACH, AT BEDSIDE, ASSISTED TO BATHROOM, NEEDS ATTENDED.
[2018-12-28 08:00] VITALS: BP 168/87
[2018-12-28 08:10] LABS: CALCIUM, SERUM 8.6 mg/dL (8.5-10.1); CREATININE 4.1 mg/dL (0.6-1.3); PHOSPHORUS 4.6 mg/dL (2.5-4.9); POTASSIUM 4.7 mmol/L (3.5-5.1); THYROID STIMULATING HORMONE 2.112 uIU/mL (0.358-3.74)
[2018-12-28 08:28] LABS: BASOPHILS % (AUTO) 0.6 % (0.0-2.0); EOSINOPHILS % (AUTO) 8.4 % (0.0-6.0); HEMATOCRIT 30 % (39-51); HEMOGLOBIN 10.4 g/dL (13.5-17.5); LYMPHOCYTES # (AUTO) 1.3 /CMM (0.8-4.8); LYMPHOCYTES % (AUTO) 17.1 % (20.0-44.0); MEAN CORPUSCULAR HGB CONC 35 g/dl (31.0-36.0); MEAN CORPUSCULAR VOLUME 96 fL (80-96); MONOCYTES # (AUTO) 0.7 /CMM (0.1-1.30); MONOCYTES % (AUTO) 9.2 % (2.0-12.0); NEUTROPHILS % (AUTO) 64.7 % (43.0-81.0); PLATELET COUNT (AUTO) 182 /CMM (150-450); RED BLOOD CELL COUNT(AUTO) 3.12 MIL/uL (4.5-6.0); WHITE BLOOD COUNT (AUTO) 7.8 K/uL (4.3-11.0)
[2018-12-28] MEDS: AMLODIPINE BESYLATE 10 MG TABLET PO SCH (08:29)
--- NOTE | 2018-12-28 12:16 | NUR ---
RN MS NOTES PT AWAKE, ALERT AND ORIENTED, DENIES PAIN, NOT IN DISTRESS, FAMILY AT BEDSIDE, DIALYSIS ONGOING, TOLERATING WELL, CALL LIGHT WITHIN REACH.
[2018-12-28] MEDS ORDERED: IV 1/2NS 1000 ML 1,000 ML IV PRN (12:59)
[2018-12-28] MEDS: HYDROCODONE/APAP 5/325MG 1 EACH TABLET PO PRN (14:19)
[2018-12-28 16:00] VITALS: BP 146/75
--- NOTE | 2018-12-28 18:15 | NUR ---
RN MS NOTES PT IN BED, AWAKE, ALERT AND ORIENTED, DENIES PAIN, NOT IN DISTRESS, FAMILY AT BEDSIDE, TOLERATED DINNER WELL, IV FLUIDS INFUSING WELL, CALL LIGHT WITHIN REACH, ALL NEEDS ATTENDED.
--- NOTE | 2018-12-28 19:00 | NUR ---
MS RN OPENING NOTES Received patient in bed watching TV, alert, oriented x 4, montserratian speaking. Family at bedside. Breathing evena and unlabored. Not in any distress, on room air. No complaints at this time. Peripheral IV infusing at 40mL/hr. Safety measures in place; call dubois within reach, bed in low, locked position. Will continue to monitor accordingly.
[2018-12-28 20:00] VITALS: BP 156/80
[2018-12-28] MEDS: METOPROLOL SUCCINATE 50 MG TAB.SR.24H PO SCH (21:18)
[2018-12-28 22:30] VITALS: BP 150/72
--- NOTE | 2018-12-29 06:34 | NUR ---
MS RN CLOSING NOTES Patient still sleeping in bed, easily arousable. Breathing even and unlabored, not in any distress. Peripheral IV infusing at 40mL/hr. No acute changes overnight. Safety measures in place, call light within reach, bed in low, locked position. Will endorse MARIANELA to oncoming RN
[2018-12-29 07:10] LABS: BASOPHILS # (AUTO) 0.1 /CMM (0.0-0.2); HEMATOCRIT 21 % (39-51); HEMOGLOBIN 9.5 g/dL (13.5-17.5); LYMPHOCYTES # (AUTO) 1.4 /CMM (0.8-4.8); LYMPHOCYTES % (AUTO) 23.3 % (20.0-44.0); MEAN CORPUSCULAR HGB CONC 46 g/dl (31.0-36.0); MEAN CORPUSCULAR VOLUME 100 fL (80-96); MONOCYTES # (AUTO) 0.8 /CMM (0.1-1.30); MONOCYTES % (AUTO) 12.8 % (2.0-12.0); NEUTROPHILS # (AUTO) 3.1 /CMM (1.8-8.9); NEUTROPHILS % (AUTO) 52.9 % (43.0-81.0); PLATELET COUNT (AUTO) 162 /CMM (150-450); RED BLOOD CELL COUNT(AUTO) 2.09 MIL/uL (4.5-6.0); WHITE BLOOD COUNT (AUTO) 5.9 K/uL (4.3-11.0)
--- NOTE | 2018-12-29 07:30 | NUR ---
RN MS NOTES PT IN BED, AWAKE, ALERT AND ORIENTED, DENIES PAIN, NOT IN DISTRESS, AT BEDSIDE, ASSISTED WITH MEALS, CALL LIGHT WITHIN REACH, IV FLUIDS INFUSING WELL, KEPT COMMERCIAL LENDING RELATIONSHIP MANAGER BED, NEEDS ATTENDED.
[2018-12-29 07:33] LABS: CALCIUM, SERUM 8.7 mg/dL (8.5-10.1); CREATININE 3.5 mg/dL (0.6-1.3); MAGNESIUM 1.8 mg/dL (1.8-2.4); PHOSPHORUS 4.6 mg/dL (2.5-4.9)
[2018-12-29 08:00] VITALS: BP 188/81
[2018-12-29] MEDS: VIT B CMPLX 3/FA/VIT C/BIOTIN 1 TAB TABLET PO SCH (08:44)
[2018-12-29] MEDS: AMLODIPINE BESYLATE 10 MG TABLET PO SCH (08:44)
--- NOTE | 2018-12-29 12:43 | NUR ---
RN MS NOTES PT IN BED, AWAKE, ALERT AND ORIENTED, NO COMPLAINT AT THIS TIME, SEEN BY DR. VILLATORO, PLAN OF CARE DISCUSSED WITH PT AND FAMILY, VERBALIZED UNDERSTANDING.
[2018-12-29 16:00] VITALS: BP 170/73
--- NOTE | 2018-12-29 18:47 | NUR ---
RN MS NOTES PT IN BED, AWAKE, ALERT AND ORIENTED, NO COMPLAINT OF PAIN, RESPIRATIONS NORMAL, FAMILY AT BEDSIDE, ASSISTED TO BATHROOM NEEDED, PT TO HAVE DIALYSIS TODAY, TOLERATING CURRENT DIET, ALL NEEDS ATTENDED.
--- NOTE | 2018-12-29 19:30 | NUR ---
RECEIVED PATIENT IN BED AWAKE. AO X 3, ABLE TO MAKE NEEDS KNOWN. NO ACUTE DISTRESS NOTED. MONITORED FOR PAIN. IV SITE PATENT, INTACT; FLUSHED. RIGHT GROIN HD CATH INTACT. SAFETY REMINDERS GIVEN. ON LOW BED WITH BILATERAL UPPER SIDE RAILS UP. CALL GAN WITHIN EASY REACH. WILL CONTINUE TO MONITOR. FAMILY AT BEDSIDE.
[2018-12-29 20:00] VITALS: BP 164/76
[2018-12-29] MEDS: HYDROCODONE/APAP 5/325MG 1 EACH TABLET PO PRN (20:14)
[2018-12-29] MEDS: METOPROLOL SUCCINATE 50 MG TAB.SR.24H PO SCH (22:25)
--- NOTE | 2018-12-29 23:00 | NUR ---
PATIENT TOLERATED HD. NO BLEEDING NOTED FROM RIGHT GROIN HD CATH.
--- NOTE | 2018-12-30 | NUR ---
PATIENT ASLEEP, EASILY AROUSABLE. RESPIRATIONS EVEN. NO SIGNS OF PAIN NOTED. WILL CONTINUE TO MONITOR.
[2018-12-30] MEDS: HYDROCODONE/APAP 5/325MG 1 EACH TABLET PO PRN (05:56)
--- NOTE | 2018-12-30 06:30 | NUR ---
PATIENT AWAKE. MONITORED FOR PAIN. DUE MED GIVEN WITH NO ASE NOTED. NEEDS ATTENDED. SAFETY PRECAUTIONS AND COMFORT MEASURES IN PLACE. WILL GIVE REPORT TO DAY SHIFT FOR CONTINUITY OF CARE.
[2018-12-30 07:04] LABS: CALCIUM, SERUM 8.8 mg/dL (8.5-10.1); MAGNESIUM 1.8 mg/dL (1.8-2.4); PHOSPHORUS 3.9 mg/dL (2.5-4.9)
[2018-12-30 07:31] LABS: BASOPHILS # (AUTO) 0.1 /CMM (0.0-0.2); BASOPHILS % (AUTO) 0.9 % (0.0-2.0); EOSINOPHILS % (AUTO) 7.8 % (0.0-6.0); HEMATOCRIT 29 % (39-51); HEMOGLOBIN 9.9 g/dL (13.5-17.5); LYMPHOCYTES # (AUTO) 1.4 /CMM (0.8-4.8); LYMPHOCYTES % (AUTO) 20.3 % (20.0-44.0); MEAN CORPUSCULAR HGB CONC 35 g/dl (31.0-36.0); MEAN CORPUSCULAR VOLUME 95 fL (80-96); MONOCYTES # (AUTO) 0.7 /CMM (0.1-1.30); MONOCYTES % (AUTO) 9.9 % (2.0-12.0); NEUTROPHILS # (AUTO) 4.4 /CMM (1.8-8.9); NEUTROPHILS % (AUTO) 61.1 % (43.0-81.0); PLATELET COUNT (AUTO) 180 /CMM (150-450); RED BLOOD CELL COUNT(AUTO) 3.02 MIL/uL (4.5-6.0); WHITE BLOOD COUNT (AUTO) 7.1 K/uL (4.3-11.0)
--- NOTE | 2018-12-30 07:37 | NUR ---
MS RN OPENING NOTE PATIENT IN BED RESTING COMFORTABLY. PATIENT IN NO ACUTE DISTRESS. NO SOB NOTED. PATIENT BREATHING IS EVEN AND UNLABORED. PATIENT IV INTACT. RIGHT GROIN HD CATH INTACT. PATIENT IN NO PAIN AT THIS TIME. SAFETY PRECAUTIONS IN PLACE. PATIENT BED IS LOCKED AND IN LOWEST POSITION. CALL LIGHT WITHIN REACH. WILL CONTINUE TO MONITOR.
[2018-12-30] MEDS: AMLODIPINE BESYLATE 10 MG TABLET PO SCH (08:32)
[2018-12-30] MEDS: VIT B CMPLX 3/FA/VIT C/BIOTIN 1 TAB TABLET PO SCH (08:32)
[2018-12-30 08:33] VITALS: BP 159/78
[2018-12-30] MEDS ORDERED: VIT1TABL44 PO (10:06)
--- NOTE | 2018-12-30 16:00 | NUR ---
MS RN NOTE PATIENT IN BED RESTING COMFORTABLY. PATIENT IN NO ACUTE DISTRESS. FAMILY AT BEDSIDE. NO PAIN AT THIS TIME. WILL CONTINUE TO MONITOR.
[2018-12-30 16:14] VITALS: BP 151/84
--- NOTE | 2018-12-30 18:59 | NUR ---
MS RN CLOSING NOTE PATIENT IN BED RESTING COMFORTABLY. FAMILY AT THE BEDSIDE. PATIENT BREATHING IS EVEN AND UNLABORED. PATIENT IN NO ACUTE DISTRESS. NO SOB NOTED. RIGHT GROIN HD CATH INTACT. IV INTACT. PATIENT MAINTAINED ON NPO STATUS AFTER MIDNIGHT. DR. COURTNEY HAS NOT SEEN PATIENT FOR EVALUATION OF PERMACATH. PER DR. VILLATORO, DR. COURTNEY IS AWARE AND WILL SEE PATIENT TOMORROW. NO CONSENTS SIGNED AT THIS TIME. PATIENT KEPT CLEAN, DRY, AND COMFORTABLE. ALL NURSING NEEDS MET. PATIENT BED IS LOCKED AND IN LOWEST POSITION. CALL LIGHT WITHIN REACH. WILL ENDORSE CARE TO PM SHIFT.
[2018-12-30 20:00] VITALS: BP 157/77
[2018-12-30] MEDS: METOPROLOL SUCCINATE 50 MG TAB.SR.24H PO SCH (21:33)
[2018-12-31 06:05] LABS: BASOPHILS # (AUTO) 0.1 /CMM (0.0-0.2); BASOPHILS % (AUTO) 1.3 % (0.0-2.0); EOSINOPHILS % (AUTO) 9.2 % (0.0-6.0); HEMATOCRIT 24 % (39-51); HEMOGLOBIN 9.4 g/dL (13.5-17.5); LYMPHOCYTES # (AUTO) 1.2 /CMM (0.8-4.8); MEAN CORPUSCULAR HGB CONC 40 g/dl (31.0-36.0); MEAN CORPUSCULAR VOLUME 102 fL (80-96); MONOCYTES # (AUTO) 0.8 /CMM (0.1-1.30); MONOCYTES % (AUTO) 12.8 % (2.0-12.0); NEUTROPHILS # (AUTO) 3.5 /CMM (1.8-8.9); NEUTROPHILS % (AUTO) 56.7 % (43.0-81.0); PLATELET COUNT (AUTO) 149 /CMM (150-450); RED BLOOD CELL COUNT(AUTO) 2.33 MIL/uL (4.5-6.0); WHITE BLOOD COUNT (AUTO) 6.1 K/uL (4.3-11.0)
[2018-12-31 06:17] LABS: CALCIUM, SERUM 9.1 mg/dL (8.5-10.1); CREATININE 3.8 mg/dL (0.6-1.3); PHOSPHORUS 4.6 mg/dL (2.5-4.9); POTASSIUM 4.2 mmol/L (3.5-5.1)
--- NOTE | 2018-12-31 06:25 | NUR ---
END OF SHIFT REPORT Patient in bed, stable oxygen saturation on RA, denies SOB. Vascular consult to follow. NPO status, plan Perma cath placement, patient aware. Denies pain, right femoral HD cath intact, no bleeding. Hourly rounds, maintained safety.
[2018-12-31 08:00] VITALS: BP 124/56
--- NOTE | 2018-12-31 08:00 | NUR ---
MS RN OPENING NOTES Received Patient awake and resting in bed. A/O x 4. No acute distress noted. Breathing even and unlabored on room air with no respiratory distress. Denies pain. No signs and symptoms of pain. 20g PIV on RAC clean, dry, intact and flushing well. HD Cath on Right Groin in place and intact. Safety precautions in place. Bed locked and set to lowest position with side rails x 2 up. All needs rendered at this time. Call light within reach. Family at bedside. Will continue to monitor.
[2018-12-31] MEDS: VIT B CMPLX 3/FA/VIT C/BIOTIN 1 TAB TABLET PO SCH (08:42)
[2018-12-31] MEDS: AMLODIPINE BESYLATE 10 MG TABLET PO SCH (08:42)
--- NOTE | 2018-12-31 10:24 | NUR ---
MS RN NOTES Patient taken down to Radiology for Chest Xray at this time. Patient in stable condition. Will continue to monitor.
--- NOTE | 2018-12-31 10:30 | NUR ---
MS RN NOTES Patient returned from Radiology for Chest Xray at this time. Patient in stable condition with no acute distress. Daughter at bedside. Will continue to monitor.
[2018-12-31 16:00] VITALS: BP 140/60
--- NOTE | 2018-12-31 18:20 | NUR ---
MS RN NOTES S/P DIALYSIS with 0 fluid removed. Patient in tolerated well. Family at bedside. Will continue to monitor.
--- NOTE | 2018-12-31 19:03 | NUR ---
MS RN CLOSING NOTES Patient awake and resting in bed. A/O x 4. No acute distress noted. Breathing even and unlabored on room air with no respiratory distress. Denies pain. No signs and symptoms of pain. 20g PIV on RAC clean, dry, intact and flushing well. HD Cath on Right Groin in place and intact. Safety precautions in place. Bed locked and set to lowest position with side rails x 2 up. All needs rendered at this time. Call light within reach. Family at bedside. Will endorse plan of care to oncoming shift.
[2018-12-31 20:00] VITALS: BP 150/66
--- NOTE | 2018-12-31 20:00 | NUR ---
MS/RN OPENING NOTES RECEIVED PATIENT IN BED, AWAKE, ALERT X3, ABLE TO RESPOND AND VERBALIZE NEEDS TRINIDADIAN HEBREW, FAMILY WAS AT BEDSIDE, HAD HEMODIALYSIS TODAY BUT WITH ZERO OUTPUT, ATE DINNER AND CONSUMED HALF OF THE PLATE. RESPIRATIONS EVEN AND UNLABORED, USES URINAL HAD SMALL OUT PUT AND REPORTED HAD ONE BM EARLIER. MAY NEED PAIN MEDICATION REPORTED IF HE MAY NEEDED IT FOR LATER. WILL MONITOR PATIENT PAIN LEVEL AND ANY OTHER CONCERNS. RECEIVED REPORT FROM AM RN FOR MARIANELA. BED LOCKED, CALL LIGHTS WITHIN REACH.
[2018-12-31] MEDS: METOPROLOL SUCCINATE 50 MG TAB.SR.24H PO SCH (21:31)
[2019-01-01 03:06] LABS: HEPATITIS Be AB Negative (Negative)
--- NOTE | 2019-01-01 06:36 | NUR ---
MS/RN NOTES' PATIENT ABLE TO SLEEP DURING THE NIGHT, RESPIRATIONS EVEN AND UNLABORED, DENIES AND REFUSE PAIN MEDICATION, ABLE TO AMBULATE TO GO TO BATHROOM. COOPERATIVE AND PARTICIPATIVE TO CARE. WILL MONITOR,BED LOCKED, CALL LIGHTS WITHIN REACH, WILL MONITOR.WILL ENDORSE TO AM RN FOR MARIANELA.
[2019-01-01 07:04] LABS: BASOPHILS # (AUTO) 0.1 /CMM (0.0-0.2); BASOPHILS % (AUTO) 1.2 % (0.0-2.0); EOSINOPHILS % (AUTO) 6.9 % (0.0-6.0); LYMPHOCYTES # (AUTO) 1.5 /CMM (0.8-4.8); LYMPHOCYTES % (AUTO) 19.7 % (20.0-44.0); MEAN CORPUSCULAR VOLUME 101 fL (80-96); MONOCYTES # (AUTO) 0.9 /CMM (0.1-1.30); MONOCYTES % (AUTO) 11.4 % (2.0-12.0); NEUTROPHILS # (AUTO) 4.6 /CMM (1.8-8.9); NEUTROPHILS % (AUTO) 60.8 % (43.0-81.0); PLATELET COUNT (AUTO) 167 /CMM (150-450); WHITE BLOOD COUNT (AUTO) 7.6 K/uL (4.3-11.0)
--- NOTE | 2019-01-01 07:27 | NUR ---
RN OPENING NOTE PT WAS RECEIVED SLEEPING IN BED AT LOWEST AND LOCKED POSITION WITH SIDE RAILS UPX2, PER NIGHT RN PT IS A/O X4, BREATHING EVEN AND UNLABORED ON RA, NO S/S OF ANY PAIN OR DISTRESS NOTED AT THIS TIME, IV IS PATENT AND INTACT, PER NIGHT RN PT WILL HAVE PERMACATH PLACED BY SUNDAY AND WILL BE NPO THIS MIDNIGHT, SAFETY PRECAUTIONS IN PLACE, CALL LIGHT WITHIN REACH, WILL MONITOR ACCORDINGLY
[2019-01-01 07:38] LABS: CALCIUM, SERUM 9.2 mg/dL (8.5-10.1); CREATININE 3.4 mg/dL (0.6-1.3); MAGNESIUM 1.9 mg/dL (1.8-2.4); PHOSPHORUS 3.9 mg/dL (2.5-4.9); POTASSIUM 4.1 mmol/L (3.5-5.1)
[2019-01-01 07:42] LABS: HEMATOCRIT 29 % (39-51); RED BLOOD CELL COUNT(AUTO) 2.91 MIL/uL (4.5-6.0)
[2019-01-01 07:43] LABS: MEAN CORPUSCULAR HGB CONC 35 g/dl (31.0-36.0)
[2019-01-01 08:00] VITALS: BP 171/82
[2019-01-01] MEDS: VIT B CMPLX 3/FA/VIT C/BIOTIN 1 TAB TABLET PO SCH (08:19)
[2019-01-01] MEDS: AMLODIPINE BESYLATE 10 MG TABLET PO SCH (08:20)
[2019-01-01] MEDS: HYDROCODONE/APAP 5/325MG 1 EACH TABLET PO PRN (10:22)
[2019-01-01 16:00] VITALS: BP 102/54
--- NOTE | 2019-01-01 18:25 | NUR ---
RN CLOSING NOTE PT IN BED AT LOWEST AND LOCKED POSITION WITH SIDE RAILS UPX2, A/O X4 BREATHING EVEN AND UNLABORED ON RA WITH NO S/S OF ANY PAIN OR DISTRESS, IV IS PATENT AND INTACT, PLAN FOR PERMACATH PLACEMENT TOMORROW WITH , SAFETY PRECAUTIONS IN PLACE, CALL LIGHT WITHIN REACH, FAMILY AT BEDSIDE, ALL NEEDS ATTENDED TO, WILL ENDORSE TO NIGHT RN FOR MARIANELA.
--- NOTE | 2019-01-01 18:53 | NUR ---
RN NOTE CALL RECEIVED FROM AT THIS TIME TO OBTAIN SURGICAL CONSENT FOR PERMACATH PLACEMENT, NPO AT MIDNIGHT AND BMP FOR TOMORROW AM. WILL IMPLEMENT ORDERS AND CARRY OUT
--- NOTE | 2019-01-01 19:26 | NUR ---
MS/RN OPENING NOTES RECEIVED PATIENT SITTING IN CHAIR WITH FAMILY MEMBER AND CONSENT SIGNED WITH AM RN FOR PERMACATH PROCEDURE MAI. PATIENT ALERT, ORIENTED AND ABLE TO RESPOND, CAN SPEAK LITTLE BERMUDIAN AND FLUENT YORUBA. IV ON RIGHT AC GAUGE 20 WITH RIGHT FEMORAL HD. BED LOCKED, CALL LIGHTS WITHIN REACH, WILL MONITOR. ÁLVARO HAD INFORMED ABOUT PROCEDURE AND WILL HAVE NOTHING PER MOUTH AT MIDNIGHT. VERBALIZED UNDERSTANDING., NO PAIN REPORTED OR OBSERVED.
[2019-01-01 20:00] VITALS: BP 158/73
[2019-01-01] MEDS: METOPROLOL SUCCINATE 50 MG TAB.SR.24H PO SCH (21:01)
[2019-01-02] MEDS ORDERED: HEPARIN SODIUM, PORCINE 1,000 UNIT/ML VIAL ONE (06:17)
[2019-01-02] MEDS ORDERED: ANESTHESIA TRAY IN PYXIS 1 EA TRAY MC ONE (06:17)
[2019-01-02] MEDS ORDERED: LIDOCAINE HCL/MPF 1% 30 ML VIAL IJ ONE (06:17)
--- NOTE | 2019-01-02 06:40 | NUR ---
MS/RN NOTES PATIENT FOR PROCEDURE AT 0700, OPERATING ASSOCIATE PROFESSOR OF PSYCHOLOGY ARRIVE AND PATIENT WAS BROUGHT TO OR, CHECKLIST PREPARED, PATIENT ALERT, ORIENTED X3,
[2019-01-02] MEDS ORDERED: MIDAZOLAM HCL 2 MG/2ML VIAL ONE (06:42)
[2019-01-02] MEDS ORDERED: FAMOTIDINE/PF INJ 20 MG/2 ML VIAL IV ONE (06:43)
[2019-01-02] MEDS ORDERED: FENTANYL PF 100MCG/2ML AMPUL ONE (06:43)
--- NOTE | 2019-01-02 06:50 | NUR ---
MS/RN CLOSING NOTES REPORT GIVEN TO AM RN FOR MARIANELA. PATIENT ALERT, ORIENTED X3, ABLE TO VERBALIZE NEEDS.
[2019-01-02 07:32] LABS: CALCIUM, SERUM 8.9 mg/dL (8.5-10.1); CREATININE 4.3 mg/dL (0.6-1.3); MAGNESIUM 1.9 mg/dL (1.8-2.4); PHOSPHORUS 4.5 mg/dL (2.5-4.9); POTASSIUM 4.3 mmol/L (3.5-5.1)
--- NOTE | 2019-01-02 07:34 | NUR ---
MS RN NOTES PATIENT STILL IN O.R, REPORT RECEIVED FROM [employer].
[2019-01-02 08:00] VITALS: BP 152/72
[2019-01-02 08:06] LABS: BASOPHILS # (AUTO) 0.1 /CMM (0.0-0.2); EOSINOPHILS % (AUTO) 10.2 % (0.0-6.0); HEMATOCRIT 27 % (39-51); HEMOGLOBIN 9.4 g/dL (13.5-17.5); LYMPHOCYTES # (AUTO) 1.5 /CMM (0.8-4.8); LYMPHOCYTES % (AUTO) 20.3 % (20.0-44.0); MEAN CORPUSCULAR HGB CONC 34 g/dl (31.0-36.0); MEAN CORPUSCULAR VOLUME 96 fL (80-96); MONOCYTES # (AUTO) 0.9 /CMM (0.1-1.30); MONOCYTES % (AUTO) 12.5 % (2.0-12.0); NEUTROPHILS # (AUTO) 3.9 /CMM (1.8-8.9); PLATELET COUNT (AUTO) 159 /CMM (150-450); RED BLOOD CELL COUNT(AUTO) 2.87 MIL/uL (4.5-6.0); WHITE BLOOD COUNT (AUTO) 7.1 K/uL (4.3-11.0)
--- NOTE | 2019-01-02 08:45 | NUR ---
MS RN NOTES PATIENT ARRIVED AT UNIT WITH 2 HOSPITAL STAFF VIA HOSPITAL BED FROM O.R. REPORT RECEIVED FROM NIGEL DE LA TORRE. A/O X 4. FAMILY ON BEDSIDE. ON RA, WITH NO SOB NOTED. WITH IV ACCESS ON RAC #20, PATENT AND INTACT. DRESSING ON RIGHT UPPER CHEST INTACT. NO ACUTE DISTRESS NOTED AT THIS TIME. PATIENT DENIES ANY PAIN OR DISCOMFORT AT THIS TIME. PATIENT WITH NEW ORDERS FROM DR. COURTNEY, NOTED AND CARRIED OUT. PATIENT MADE AWARE AND VERBALIZED UNDERSTANDING. WILL CONTINUE TO MONITOR.
[2019-01-02] MEDS: VIT B CMPLX 3/FA/VIT C/BIOTIN 1 TAB TABLET PO SCH (09:10)
[2019-01-02] MEDS: AMLODIPINE BESYLATE 10 MG TABLET PO SCH (09:10)
[2019-01-02] MEDS: HYDROCODONE/APAP 5/325MG 1 EACH TABLET PO PRN (09:57)
--- NOTE | 2019-01-02 10:15 | NUR ---
MS RN NOTES PATIENT STARTED DIALYSIS ON HIS ROOM, PATIENT IN STABLE CONDITION AND NOT IN ANY DISTRESS. WILL CONTINUE TO MONITOR.
--- NOTE | 2019-01-02 13:05 | NUR ---
MS RN NOTES DIALYSIS DONE. V/S WNL. OUTPUT OF 1.5L.
[2019-01-02] MEDS: ANCEF 1 GM/50 ML D5W IV SCH ×4 (14:53→22:01)
[2019-01-02 16:00] VITALS: BP 125/68
--- NOTE | 2019-01-02 18:46 | NUR ---
MS RN CLOSING NOTES PATIENT IN BED RESTING COMFORTABLY IN MODERATE HIGH BACK REST. A/O X 4. FAMILY AT BEDSIDE. ON RA, TOLERATING WELL. IV ACCESS ON RAC#20. PATENT AND INTACT. S/P INSERTION OF PERMA CATH ON RIGHT UPPER CHEST. S/P DIALYSIS THIS AM WITH OUTPUT OF 1.5L. SAFETY MEASURES IN PLACE, BED IN LOW LOCKED POSITION WITH SIDE RAILS UP X 2. CALL LIGHT WITHIN REACH. WILL ENDORSED TO TELECOMMUNICATIONS CABLE JOINTER NURSE FOR MARIANELA.
--- NOTE | 2019-01-02 19:15 | NUR ---
MS RN NOTES RECEIVED PT IN BED AWAKE AND ABLE TO MAKE NEEDS KNOWN WITH FAMILY AT BEDSIDE. PT A/O X3. RESPIRATIONS EVEN AND UNLABORED WITH NO S/S OF ACUTE DISTRESS OR SOB NOTED. PT WITH IV ACCESS ON RAC#20, PATENT AND INTACT. PT S/P INSERTION OF PERMA CATH ON RIGHT UPPER CHEST AND S/P DIALYSIS IN AM WITH OUTPUT OF 1.5L. NO COMPLAINTS OF PAIN AT THIS TIME. SAFETY MEASURES IN PLACE WITH BED IN LOWEST LOCKED POSITION WITH SIDE RAILS UP X 2. CALL LIGHT WITHIN REACH. WILL CONTINUE TO MONITOR.
[2019-01-02 20:00] VITALS: BP 155/68
[2019-01-02] MEDS: METOPROLOL SUCCINATE 50 MG TAB.SR.24H PO SCH (22:02)
--- NOTE | 2019-01-03 06:57 | NUR ---
MS RN NOTES PT IN BED AWAKE AND ABLE TO MAKE NEEDS KNOWN. PT A/O X3. RESPIRATIONS EVEN AND UNLABORED WITH NO S/S OF ACUTE DISTRESS OR SOB NOTED THROUGHOUT SHIFT. PT WITH IV ACCESS ON RAC#20, PATENT AND INTACT. PT S/P INSERTION OF PERMA CATH ON RIGHT UPPER CHEST AND S/P DIALYSIS IN AM WITH OUTPUT OF 1.5L. NO COMPLAINTS OF PAIN AT THIS TIME. SAFETY MEASURES IN PLACE WITH BED IN LOWEST LOCKED POSITION WITH SIDE RAILS UP X 2. CALL LIGHT WITHIN REACH. WILL ENDORSE TO ONCOMING NURSE FOR MARIANELA.
--- NOTE | 2019-01-03 07:27 | NUR ---
MS RN OPENING NOTES RECEIVED PT IN BATHROOM BRUSHING TEETH. PT IS A/O X3, AMBULATORY. RESPIRATIONS ARE EVEN AND UNLABORED, NOT IN ANY ACUTE DISTRESS NOTED. PT DENIES ANY PAIN, SOB, N/V. IV SITE TO RAC INTACT, NO INFILTRATION NOTED. DRESSING KEPT CLEAN AND DRY. SAFETY MEASURES ARE IN PLACE. INSTRUCTED PT TO USE CALL LIGHT WHEN ASSISTANCE IS NEEDED, CALL LIGHT IS LEFT WITHIN REACH. WILL MONITOR THROUGHOUT SHIFT FOR CONTINUITY OF CARE.
[2019-01-03 08:00] VITALS: BP_SYST 119; BP_SYST 125; BP_DIAS 66; BP_DIAS 70
[2019-01-03 08:29] VITALS: BP 125/66
[2019-01-03] MEDS: VIT B CMPLX 3/FA/VIT C/BIOTIN 1 TAB TABLET PO SCH (08:29)
[2019-01-03] MEDS: AMLODIPINE BESYLATE 10 MG TABLET PO SCH (08:29)
--- NOTE | 2019-01-03 09:00 | NUR ---
MS CULTURE ROOM WORKER NOTE PT DISCHARGED TO HOME IN MEDICALLY STABLE CONDITION. PT IS A/O X3, AFEBRILE. RESPIRATIONS ARE EVEN AND UNLABORED, NOT IN ANY ACUTE DISTRESS NOTED. PUPILS ARE REACTIVE TO LIGHT, BILATERAL HAND BALANCE CLERK ARE STRONG AND EQUAL. DENIES ANY PAIN, SOB, N/V. ABDOMEN IS SOFT AND NONDISTENDED, BOWEL SOUNDS ARE PRESENT IN ALL 4 QUADRANTS UPON AUSCULTATION. DENIES ANY BLADDER DISCOMFORT. PICTURES TAKEN TO RIGHT BUTTOCK/BACK AND PLACED IN CHART. IV ACCESS REMOVED, APPLIED PRESSURE AND TOLERATED WELL. HD CATH TO RIGHT CHEST INTACT, DRESSING KEPT CLEAN AND DRY. INFORMED PT NOT TO GET HD CATH WET AND TO MAKE SURE ITS COVERED. EXPLAINED DISCHARGE PAPERWORK TO PT AND DTR CAROLZ WITH VERBAL AND WRITTEN UNDERSTANDING. ALL BELONGINGS SENT WITH PT. ACCOMPANIED PT TO PERSONAL VEHICLE VIA WC. PT LEFT IN STABLE CONDITION.
== END 2019-01-03 09:00 | disposition home or self-care (01) | DRG 673 ==
LOC: ER 12:52 → TELE 17:28 → MED 12-28 08:33
PROVIDERS: ADMIT Student in an Organized Health Care Education/Training Program; ATTEND Hospitalist
PROC: 06HM33Z Insertion of Infusion Device into Right Femoral Vein, Percutaneous Approach (ICD-10-PCS; principal; 2018-12-27)
PROC: B54BZZA Ultrasonography of Right Lower Extremity Veins, Guidance (ICD-10-PCS; 2018-12-27)
PROC: 0JHD3XZ Insertion of Tunneled Vascular Access Device into Right Upper Arm Subcutaneous Tissue and Fascia, Percutaneous Approach (ICD-10-PCS; 2019-01-02)
PROC: 05HM33Z Insertion of Infusion Device into Right Internal Jugular Vein, Percutaneous Approach (ICD-10-PCS; 2019-01-02)
PROC: B543ZZA Ultrasonography of Right Jugular Veins, Guidance (ICD-10-PCS; 2019-01-02)
PROC: 5A1D70Z Performance of Urinary Filtration, Intermittent, Less than 6 Hours Per Day (ICD-10-PCS; 2019-01-02)
DX: I12.0 Hypertensive chronic kidney disease with stage 5 chronic kidney disease or end stage renal disease (principal); N18.6 End stage renal disease; E43 Unspecified severe protein-calorie malnutrition; K86.1 Other chronic pancreatitis; N17.9 Acute kidney failure, unspecified; K40.90 Unilateral inguinal hernia, without obstruction or gangrene, not specified as recurrent; E87.5 Hyperkalemia; Z79.899 Other long term (current) drug therapy; D64.9 Anemia, unspecified; Z99.2 Dependence on renal dialysis; Z83.3 Family history of diabetes mellitus; N43.3 Hydrocele, unspecified; F17.200 Nicotine dependence, unspecified, uncomplicated; F10.10 Alcohol abuse, uncomplicated; N50.3 Cyst of epididymis; M85.9 Disorder of bone density and structure, unspecified; Z86.19 Personal history of other infectious and parasitic diseases; D63.8 Anemia in other chronic diseases classified elsewhere
CPT/HCPCS: 36415; 71045-TC; 71046; 76870-TC; 80048-TC; 80061-TC; 80076-TC; 81000-TC; 83690-TC; 83735-TC; 84100-TC; 84443-TC; 85025-TC; 85610-TC; 85730-TC; 86704; 86705; 86706; 86707; 87081-TC; 87086-TC; 87340; 87350; 90935-TC; A4216; C1750; C1769; G0378; J0690; J1644; J2060; J2250; J2270; J2405; J2704; J2765; J3010; J3490; J7030; J7060

== ENCOUNTER 2019-01-06 13:55 | Outpatient (CLI) | payer MEDICARE, MEDICAID ==
[2019-01-06 09:14] VITALS: BP 144/63
[~2019-01-06 13:55] MED LIST changes: -ACYC400T PO; +AMLO10TA7 PO; -AMLO5TAB9 PO; +METO25TA3 PO; -METO50TA7 PO; +VIT1TABL44 PO
== END 2019-01-06 23:59 | disposition home or self-care (01) ==
LOC: MSC 13:55
PROVIDERS: ATTEND Internal Medicine
DX: I12.0 Hypertensive chronic kidney disease with stage 5 chronic kidney disease or end stage renal disease (principal); N18.6 End stage renal disease; Z99.2 Dependence on renal dialysis; Z72.0 Tobacco use; N44.2 Benign cyst of testis; D63.1 Anemia in chronic kidney disease; D50.8 Other iron deficiency anemias; Z79.899 Other long term (current) drug therapy

== ENCOUNTER 2019-02-03 12:57 | Outpatient (CLI) | payer MEDICARE, MEDICAID ==
[2019-02-03 14:14] VITALS: BP 155/74
== END 2019-02-03 23:59 | disposition home or self-care (01) ==
LOC: MSC 12:57
PROVIDERS: ATTEND Internal Medicine
DX: I12.0 Hypertensive chronic kidney disease with stage 5 chronic kidney disease or end stage renal disease (principal); N18.6 End stage renal disease; Z99.2 Dependence on renal dialysis; R55 Syncope and collapse; N44.2 Benign cyst of testis; D63.1 Anemia in chronic kidney disease; D50.9 Iron deficiency anemia, unspecified

== ENCOUNTER 2019-11-07 14:59 | Outpatient (CLI) | payer MEDICARE, OTHER, MEDICAID | END 2019-11-07 23:59 | disposition home or self-care (01) | LOC: MSC 14:59 | PROVIDERS: ATTEND Internal Medicine | DX: I12.0 Hypertensive chronic kidney disease with stage 5 chronic kidney disease or end stage renal disease (principal); N18.6 End stage renal disease; Z99.2 Dependence on renal dialysis; K86.0 Alcohol-induced chronic pancreatitis; F10.929 Alcohol use, unspecified with intoxication, unspecified; D64.9 Anemia, unspecified; K40.90 Unilateral inguinal hernia, without obstruction or gangrene, not specified as recurrent; F17.210 Nicotine dependence, cigarettes, uncomplicated; Z86.19 Personal history of other infectious and parasitic diseases ==

== ENCOUNTER 2019-11-25 11:05 | Emergency (ER) | payer MEDICARE, MEDICAID ==
[~2019-11-25] VITALS: Ht 162.6 cm; Wt 64.0 kg
--- NOTE | 2019-11-25 11:21 | NUR ---
CALL DAUGHTER, CARLOZ FOR AN UPDATE AT [phone]
[2019-11-25 11:24] VITALS: BP 111/67
--- NOTE | 2019-11-25 11:31 | NUR ---
PT SEEN AND EXAMINED BY .
--- NOTE | 2019-11-25 12:43 | NUR ---
Patient discharged to home in stable condition. Written and verbal after care instructions given. Patient verbalizes understanding of instruction.
== END 2019-11-25 12:43 | disposition home or self-care (01) ==
LOC: ER 11:05
DX: R59.0 Localized enlarged lymph nodes (principal); I10 Essential (primary) hypertension; E11.9 Type 2 diabetes mellitus without complications; Z79.899 Other long term (current) drug therapy
CPT/HCPCS: 70490-TC

== ENCOUNTER 2020-01-23 12:03 | Outpatient (CLI) | payer MEDICARE, MEDICAID ==
[~2020-01-23 12:03] MED LIST changes: +AMLO-213 PO; -AMLO10TA7 PO
[2020-01-23 15:29] LABS: FREE T4 (FREE THYROXINE) 1.21 ng/dL (0.76-1.46); THYROID STIMULATING HORMONE 1.171 uIU/mL (0.358-3.74)
[2020-01-23 15:35] LABS: C-REACTIVE PROTEIN 3.2 mg/dL (0.0-0.9)
[2020-01-24 08:19] LABS: PTH, INTACT 13 pg/mL (15-65)
[2020-01-26 15:15] LABS: *SPE A/G RATIO 0.8 (0.7-1.7); *SPE ALBUMIN 3.3 g/dL (2.9-4.4); *SPE ALPHA-1-GLOBULIN 0.3 g/dL (0.0-0.4); *SPE ALPHA-2-GLOBULIN 0.9 g/dL (0.4-1.0); *SPE M-SPIKE Not Observed g/dL (Not Observed); *SPEGAMMA GLOBULIN 1.7 g/dL (0.4-1.8)
[2020-02-14] MEDS ORDERED: PANT40TA2 PO (12:11)
[2020-02-14] MEDS ORDERED: SEVE800T7 PO (12:11)
== END 2020-01-23 23:59 | disposition home or self-care (01) ==
LOC: MSC 12:03
PROVIDERS: ATTEND Internal Medicine
DX: E83.52 Hypercalcemia (principal); R63.4 Abnormal weight loss; Z68.22 Body mass index [BMI] 22.0-22.9, adult; L28.1 Prurigo nodularis; D64.9 Anemia, unspecified; I12.0 Hypertensive chronic kidney disease with stage 5 chronic kidney disease or end stage renal disease; N18.6 End stage renal disease; K86.0 Alcohol-induced chronic pancreatitis; K40.90 Unilateral inguinal hernia, without obstruction or gangrene, not specified as recurrent; Z86.19 Personal history of other infectious and parasitic diseases; Z79.899 Other long term (current) drug therapy
CPT/HCPCS: 36415; 82306; 82378; 82607; 82652; 83970; 84155; 84165; 84439; 84443; 85652; 86140; G0463

== ENCOUNTER 2020-01-29 08:39 | Inpatient (IN) | payer MEDICARE, OTHER ==
[2020-01-29] VITALS (30 sets, daily range): BP systolic 132–164; BP diastolic 60–132
[~2020-01-29] VITALS: Ht 193 cm; Wt 62.6 kg
--- NOTE | 2020-01-29 08:55 | NUR ---
pt bib daughter from home c/o increasing confusion and generalized weakness x 2 days. pt is febrile user acceptance tester. gowned and placed on monitor. vss. awaiting md baez.
--- NOTE | 2020-01-29 08:59 | NUR ---
dr tirado at bedside for eval.
[2020-01-29] MEDS ORDERED: IV NS 0.9% 1,000 ML BAG IV ONE (09:00)
[2020-01-29] MEDS ORDERED: VIT1TABL46 PO (09:12)
[2020-01-29] MEDS ORDERED: NALT50TA PO (09:12)
[2020-01-29] MEDS ORDERED: ESCI10TA PO (09:12)
[2020-01-29] MEDS ORDERED: MIRT7.5T10 PO (09:12)
--- NOTE | 2020-01-29 09:18 | NUR ---
iv line started blood drawn and sent to lab.
[2020-01-29] MEDS ORDERED: CEFEPIME 1 GM in IV D5W 50 ML IV ONE (09:30)
[2020-01-29] MEDS ORDERED: VANCOMYCIN 1 GM in IV D5W 250 ML IV ONE (09:30)
[2020-01-29 09:41] LABS: BASOPHILS # (AUTO) 0.1 /CMM (0.0-0.2); BASOPHILS % (AUTO) 0.5 % (0.0-2.0); EOSINOPHILS % (AUTO) 0.8 % (0.0-6.0); HEMATOCRIT 31 % (39-51); HEMOGLOBIN 10.2 g/dL (13.5-17.5); LYMPHOCYTES # (AUTO) 1.5 /CMM (0.8-4.8); LYMPHOCYTES % (AUTO) 9.1 % (20.0-44.0); MEAN CORPUSCULAR HGB CONC 33 g/dl (31.0-36.0); MEAN CORPUSCULAR VOLUME 97 fL (80-96); MONOCYTES # (AUTO) 0.5 /CMM (0.1-1.30); MONOCYTES % (AUTO) 3.1 % (2.0-12.0); NEUTROPHILS % (AUTO) 86.5 % (43.0-81.0); PLATELET COUNT (AUTO) 182 /CMM (150-450); RED BLOOD CELL COUNT(AUTO) 3.18 MIL/uL (4.5-6.0); WHITE BLOOD COUNT (AUTO) 16.2 K/uL (4.3-11.0)
[2020-01-29 10:12] LABS: D-DIMER 2.71 mg/L(FEU (0.17-0.50)
--- NOTE | 2020-01-29 10:19 | NUR ---
unable to collect urine specimen at this time. patient confused. urinal provided at bedside.
[2020-01-29 10:28] LABS: ALBUMIN 2.7 g/dL (3.4-5.0); BILIRUBIN,DIRECT 0.2 mg/dL (0.0-0.2); BILIRUBIN,TOTAL 0.5 mg/dL (0.2-1.0); CALCIUM, SERUM 10.6 mg/dL (8.5-10.1); POTASSIUM 5.3 mmol/L (3.5-5.1); TOTAL PROTEIN, SERUM 8.1 g/dL (6.4-8.2)
[2020-01-29] MEDS ORDERED: ACETAMINOPHEN 325 MG TABLET PO ONE (10:30)
[2020-01-29 10:33] LABS: CREATININE 8.1 mg/dL (0.6-1.3)
[2020-01-29 10:40] LABS: SERUM AMMONIA 41 umol/L (11-32)
[2020-01-29] MEDS ORDERED: ACETAMINOPHEN 325 MG TABLET ONE (10:43)
[2020-01-29 11:15] LABS: B-TYPE NATRIURETIC PEPTIDE 19427 PG/ML (0-125)
[2020-01-29 11:54] LABS: C-REACTIVE PROTEIN 41.2 mg/dL (0.0-0.9)
--- NOTE | 2020-01-29 12:01 | NUR ---
Pt assigned room 258
--- NOTE | 2020-01-29 13:00 | NUR ---
called icu to give report. no assigned nurse at this time.
--- NOTE | 2020-01-29 13:25 | NUR ---
report given to charge nurse amena for tom. awaiting transfer to floor.
[2020-01-29] MEDS ORDERED: ZOLPIDEM TARTRATE 5 MG TABLET PO PRN (13:30)
[2020-01-29] MEDS ORDERED: Z GUARD REMEDY 2 OZ OINT TP PRN (13:30)
[2020-01-29] MEDS ORDERED: ONDANSETRON HCL/PF 4 MG/2 ML VIAL IVP PRN (13:30)
[2020-01-29] MEDS ORDERED: MAGNESIUM HYDROXIDE 30 ML UDC PO PRN (13:30)
--- NOTE | 2020-01-29 14:18 | NUR ---
BROWNFIELD REDEVELOPMENT SITE MANAGER ADMITTED IN TO ROOM 259 BY RUDDY WITH MONITOR. REPORT RECEIVED FROM GERMAN MINA RN. PT ADMITTED FOR SEVERE SEPSIS, PNA. PT AWAKE AND ALERT. ALBANIAN SPEAKER. FOLLOWS COMMANDS. ORIENTED TO NAME. ON ROOM AIR WITH SPO2 98%. PT ADMITTED CHRISTINA OVERFLOW. PLACED IN ISOLATION FOR PENDING COVID PCR RESULT.
--- NOTE | 2020-01-29 15:10 | NUR ---
RN NOTES ICU PT IS ADMITTED TO ROOM 259 BY RUDDY WITH MONITOR. REPORT RECEIVED FROM SHAVON KING RN. PT ADMITTED FOR SEVERE SEPSIS, PNA. PT AWAKE AND ALERT. TAMAZIGHT SPEAKER. FOLLOWS COMMANDS. ORIENTED TO NAME. ON 02 WITH NASAL CANNULA SATURATION OF 96%. PT ADMITTED CHRISTINA OVERFLOW. PLACED IN ISOLATION FOR PENDING COVID PCR RESULT
--- NOTE | 2020-01-29 16:30 | NUR ---
RN NOTES PT HAS YOVANA HD ACCESS . HD CONSENT WAS SIGNED
--- NOTE | 2020-01-29 16:45 | NUR ---
RN NOTES PT IS RESTING IN BED. NO SOB OR DISTRESS NOTED AT THIS TIME. WILL CONTINUE TO MONITOR
--- NOTE | 2020-01-29 18:53 | NUR ---
RN CLOSING NOTE PT IS RESTING IN BED ADMITTED . ALERT AND ORIENTED X3 . LIBERIAN SPEAKER. FOLLOWS COMMANDS.PT IS ON 02 WITH NASAL CANNULA SATURATION OF 96%. PLACED IN ISOLATION FOR PENDING COVID PCR RESULT. WAITING FOR HD. SAFETY MEASUREMENTS ARE IMPLEMENTED BY HOSPITAL PROTOCOL. BED IS IN THE LOWEST POSITION. SIDE RAILS ARE UP X2. CALL LIGHT WITHIN THE REACH. WILL ENDORSE TO WAXER OPERATOR NURSE FOR MARIANELA
--- NOTE | 2020-01-29 19:15 | NUR ---
RN NOTE RECEIVED PATIENT IN BED RESTING, WATCHING TV. PATIENT IS A 64 Y/O MALE OF DECENT. FULL CODE, ON ISOLATION FOR R/O COVID. PATIENT HAS DX OF SEPSIS/PNEUMONIA. CHRISTINA STATUS. PATIENT IS AWAKE, ALERT, ORIENTED X3. BREATHING IS EVEN AND UNLABORED, O2 SAT IS 94% ON ROOM AIR. ABLE TO MAKE NEEDS KNOWN IN GABONESE. SKIN IS DRY, WARM TO TOUCH, AND INTACT. NOTED MULTIPLE DISCOLORATIONS THROUGHOUT BODY. PATIENT IS CONTINENT OF BOWEL AND BLADDER, URINAL AND COMMODE AT BEDSIDE. IV SITE ON RIGHT HAND GAUGE 18 IS CLEAN, DRY, PATENT, AND FLUSHED. HD SHUNT ON YOVANA, BRUIT PRESENT. LUNG SOUNDS ARE CLEAR. PATIENT IS AMBULATORY WITH ASSIST. NO COMPLAINTS OF ANY PAIN AT THIS TIME. PATIENT IS IN NO APPARENT DISTRESS. CALL LIGHT IS WITHIN EASY REACH. BED IS LOWERED TO LOW POSITION FOR SAFETY. BED ALARM ON. WILL CONTINUE TO MONITOR.
--- NOTE | 2020-01-29 21:05 | NUR ---
RN NOTE MONUMENT SETTER NELY REPORTED TO ME THAT SHE NOTED THE LAB PERSONNEL DRAW BLOOD FROM PATIENT'S LEFT ARM. PATIENT'S HD FISTULA IS LOCATED ON LEFT UPPER ARM. CALLED LAB AND RECEIVED CONFIRMATION THAT LAB PERSONNEL REALLY DID DRAW BLOOD FROM LEFT ARM. PATIENT IS STABLE AT THIS TIME. NO S/S OF BLEEDING. POSTED SIGNS ON PATIENT'S DOOR AND ABOVE BED NOT TO DRAW BLOOD, NO BP, NO MEDS ON LEFT ARM. WILL CONTINUE TO CLOSELY MONITOR.
[2020-01-29] MEDS: ACETAMINOPHEN 325 MG TABLET PO PRN (21:55)
--- NOTE | 2020-01-29 22:10 | NUR ---
RN NOTE HD FINISHED AROUND THIS TIME. PER DIALYSIS NURSE NELY 300 ML OUTPUT. NO APPARENT DISTRESS NOTED AT THIS TIME. WILL CONTINUE TO MONITOR.
[2020-01-30] VITALS (34 sets, daily range): BP systolic 107–175; BP diastolic 52–91
--- NOTE | 2020-01-30 02:00 | NUR ---
RN NOTE PATIENT IS SLEEPING COMFORTABLY AT THIS TIME. NO APPARENT DISTRESS NOTED. CONTINUE TO MONITOR.
[2020-01-30] MEDS: ACETAMINOPHEN 325 MG TABLET PO PRN ×3 (04:00→21:16)
--- NOTE | 2020-01-30 04:00 | NUR ---
RN NOTE PATIENT NOTED WITH 103 F TEMP AROUND THIS TIME. TYLENOL GIVEN ORDERED AND COOLING MEASURES INITIATED. CALLED VEHICLE DELIVERY WORKER MD DR. LONG, RECEIVED ORDER FOR BLOOD CULTURE. ORDER NOTED AND CARRIED OUT. WILL CONTINUE TO MONITOR.
[2020-01-30 04:49] LABS: BASOPHILS % (AUTO) 0.2 % (0.0-2.0); HEMATOCRIT 27 % (39-51); HEMOGLOBIN 8.9 g/dL (13.5-17.5); LYMPHOCYTES # (AUTO) 0.8 /CMM (0.8-4.8); LYMPHOCYTES % (AUTO) 9.2 % (20.0-44.0); MEAN CORPUSCULAR HGB CONC 34 g/dl (31.0-36.0); MEAN CORPUSCULAR VOLUME 92 fL (80-96); MONOCYTES # (AUTO) 0.2 /CMM (0.1-1.30); MONOCYTES % (AUTO) 2.4 % (2.0-12.0); NEUTROPHILS # (AUTO) 7.3 /CMM (1.8-8.9); NEUTROPHILS % (AUTO) 86.2 % (43.0-81.0); PLATELET COUNT (AUTO) 151 /CMM (150-450); RED BLOOD CELL COUNT(AUTO) 2.87 MIL/uL (4.5-6.0); WHITE BLOOD COUNT (AUTO) 8.5 K/uL (4.3-11.0)
[2020-01-30 05:12] LABS: CALCIUM, SERUM 9.3 mg/dL (8.5-10.1); CREATININE 6.6 mg/dL (0.6-1.3); MAGNESIUM 2.3 mg/dL (1.8-2.4); POTASSIUM 4.7 mmol/L (3.5-5.1)
--- NOTE | 2020-01-30 06:35 | NUR ---
RN NOTE PATIENT IS RESTING AT THIS TIME, WATCHING TV. NO APPARENT DISTRESS NOTED. TEMP DROPPED TO 100.6 F. PATIENT WAS KEPT CLEAN, DRY, AND COMFORTABLE. WILL ENDORSE TO AM SHIFT RN FOR CONTINUATION OF CARE.
--- NOTE | 2020-01-30 07:45 | NUR ---
RN NOTES RECEIVED PT IN BED. ALERT AND ORIENTED X3 .PT IS ON O2 NASAL CANNULA ON 2L. NO SOB OR DISTRESS WAS NOTED . PT HAD FEVER OF 100.8 THIS MORNING. PT HAD DIALYSIS LAST NIGHT.PT HAS YOVANA HD AV SHUNT AUSCULTATED HEARD BRUIT. NO BLEEDING NOTICED AT THIS TIME. PT HAS ON RIGHT HAND #18 SL INTACT AND FLUSHING WELL NO INFILTRATION OR INFECTION NOTED. SAFETY MEASUREMENTS ARE IMPLEMENTED BY HOSPITAL POLICY. BED IS IN THE LOWEST POSITION. SIDE RAILS ARE UP X2.CALL LIGHT WITHIN THE REACH. WILL CONTINUE TO MONITOR.
--- NOTE | 2020-01-30 08:00 | NUR ---
RN NOTES PT HAS LIQUID STOOL
[2020-01-30] MEDS: METOPROLOL SUCCINATE 25 MG TAB.SR.24H PO SCH (08:15)
[2020-01-30] MEDS: VIT B CMPLX 3/FA/VIT C/BIOTIN 1 TAB TABLET PO SCH (08:15)
[2020-01-30] MEDS: ESCITALOPRAM OXALATE (10 MG) 10 MG TABLET PO SCH (08:15)
[2020-01-30] MEDS: AMLODIPINE BESYLATE 10 MG TABLET PO SCH (08:16)
--- NOTE | 2020-01-30 08:19 | NUR ---
RN NOTES PT HAS A FEVER OF 100.8. GAVE TYLENOL. COOL MEASUREMENTS ARE IMPLEMENTED BY [employer] PACK UNDERARMS AND REMOVE ANY BLANKETS AND COOL THE ROOM
--- NOTE | 2020-01-30 09:00 | NUR ---
RN NOTES PT HAD 2 ND LIQUID STOOL
[2020-01-30] MEDS ORDERED: CEFEPIME 1 GM in IV D5W 50 ML IV SCH (10:00)
--- NOTE | 2020-01-30 10:00 | NUR ---
RN NOTES CHECKED TEM IS 100.O.
--- NOTE | 2020-01-30 11:00 | NUR ---
RN NOTES CHECKED TEM IS 98.5
--- NOTE | 2020-01-30 13:29 | NUR ---
RN NOTES YEIMY FROM LAB CALLED PT IS COVID POSITIVE
[2020-01-30] MEDS ORDERED: VANCOMYCIN 1 GM in IV D5W 250 ML IV ONE (16:00)
--- NOTE | 2020-01-30 18:57 | NUR ---
RN CLOSING NOTES PT IS RESTING IN BED. ALERT AND ORIENTED X3 CUBAN SPEAKING BUT UNDERSTAND KINYARWANDA AND FOLLOWS DIRECTIONS YOVANA HD SHUNT.R HAND #18. PT IS 2L O2 SAT IN HIS 95%. NO SOB OR DISTRESS NOTED. PT HAD 3 LIQUID STOOL .PT IS DRY AND MEDS WERE TAKEN. SAFETY MEASURE ARE IMPLEMENTED PER HOSPITAL POLICY.BED IS IN THE LOWEST POSITION. SIDE RAILS ARE UP X2.CALL LIGHT WITHIN THE REACH.WILL ENDORSE TO NIGHT NURSE FOR MARIANELA
[2020-01-30] MEDS: CEFEPIME 1 GM in IV D5W 50 ML IV SCH (20:53)
--- NOTE | 2020-01-30 21:20 | NUR ---
SPLITTER HEAD: ACETAMINOPHEN GIVEN ORDERED FOR ORAL TEMP.=102.3. BED BATH GIVEN WT COOLING MEASURES. INCREASED 02 INCREASED TO 4L VIA NC FOR DESATURATION. ENCOURAGED TO PRONE BUT REFUSED. EXPLAINED RISKS AND BENEFITS. WILL CONTINUE TO MONITOR.
[2020-01-31] VITALS (26 sets, daily range): BP systolic 95–159; BP diastolic 47–72
[2020-01-31 04:37] LABS: BASOPHILS % (AUTO) 0.2 % (0.0-2.0); EOSINOPHILS % (AUTO) 2.4 % (0.0-6.0); HEMATOCRIT 26 % (39-51); HEMOGLOBIN 8.7 g/dL (13.5-17.5); LYMPHOCYTES # (AUTO) 0.8 /CMM (0.8-4.8); LYMPHOCYTES % (AUTO) 6.9 % (20.0-44.0); MEAN CORPUSCULAR HGB CONC 33 g/dl (31.0-36.0); MEAN CORPUSCULAR VOLUME 97 fL (80-96); MONOCYTES # (AUTO) 0.2 /CMM (0.1-1.30); MONOCYTES % (AUTO) 1.8 % (2.0-12.0); NEUTROPHILS # (AUTO) 10.8 /CMM (1.8-8.9); NEUTROPHILS % (AUTO) 88.7 % (43.0-81.0); PLATELET COUNT (AUTO) 165 /CMM (150-450); WHITE BLOOD COUNT (AUTO) 12.2 K/uL (4.3-11.0)
[2020-01-31 04:59] LABS: CALCIUM, SERUM 9.2 mg/dL (8.5-10.1); MAGNESIUM 2.6 mg/dL (1.8-2.4); POTASSIUM 5.2 mmol/L (3.5-5.1)
[2020-01-31 05:16] LABS: CREATININE 8.5 mg/dL (0.6-1.3); PHOSPHORUS 8.8 mg/dL (2.5-4.9)
--- NOTE | 2020-01-31 06:30 | NUR ---
PLAYGROUND SUPERVISOR: RECEIVED BUN=97, PHOS=8.8, CREAT=8.5. HEMODIALYSIS NURSE IN THE ICU UNIT AND SAID HE WILL PERFROM HEMODIALYSIS TODAY. NO NEED TO INFORM MD. PT REMAINS AT 4L 02 VIA NC WT 02 SAT 94% AND ABOVE. ENCOURAGED TO PRONE BUT UNABLE TO TOLERATE. ABLE TO MAKE NEEDS KNOWN WT FORGETFULNESS. SR ON CARDIAC TELE. AFEBRILE. HOB AT 35 DEGREES. SAFETY PRECAUTION NOTED AT ALL TIMES.
--- NOTE | 2020-01-31 07:30 | NUR ---
REINFORCING STEEL PLACER OPENING NOTES RECEIVED PT IN BED. ALERT AND ORIENTED X3 . PT IS ON O2 NASAL CANNULA ON 2L. NOT IN ANY ACUTE DISTRESS AT THIS TIME. PT HAS YOVANA HD AV SHUNT AUSCULTATED HEARD BRUIT. NO BLEEDING NOTICED AT THIS TIME. PT HAS ON RIGHT HAND #18 SL INTACT AND FLUSHING WELL NO INFILTRATION OR INFECTION NOTED. SAFETY MEASUREMENTS ARE IMPLEMENTED BY HOSPITAL POLICY. BED IS IN THE LOWEST POSITION. SIDE RAILS ARE UP X2.CALL LIGHT WITHIN THE REACH. WILL CONTINUE TO MONITOR.
[2020-01-31] MEDS: METOPROLOL SUCCINATE 25 MG TAB.SR.24H PO SCH (09:00)
[2020-01-31] MEDS: AMLODIPINE BESYLATE 10 MG TABLET PO SCH (09:00)
[2020-01-31] MEDS: VIT B CMPLX 3/FA/VIT C/BIOTIN 1 TAB TABLET PO SCH (09:08)
[2020-01-31] MEDS: ESCITALOPRAM OXALATE (10 MG) 10 MG TABLET PO SCH (09:10)
--- NOTE | 2020-01-31 09:58 | NUR ---
PT SCHEDULED FOR HEMODIALYSIS TX TODAY.
--- NOTE | 2020-01-31 11:27 | NUR ---
PHARMACIST MADE AWARE OF VANCOMYCIN TROUGH RESULTS TODAY OF 26 (HIGH), AINSLEY (PHARMACIST) STATED TO HOLD VANCOMYCIN DOSE TODAY, AND WILL CHECK VANCOMYCIN TROUGH IN AM FOR DOSING.
--- NOTE | 2020-01-31 13:40 | NUR ---
HD STARTED. PT IN STABLE CONDITION.
[2020-01-31] MEDS: ACETAMINOPHEN 325 MG TABLET PO PRN (17:20)
--- NOTE | 2020-01-31 18:23 | NUR ---
RN CLOSING NOTES PT REMAINS ALERT AND ORIENTED X3 FRENCH SPEAKING BUT UNDERSTAND WELSH AND FOLLOWS DIRECTIONS. YOVANA HD SHUNT. R HAND #18 SL INTACT AND FLUSHED WELL. PT IS 2L O2 SAT IN HIS 93%. NOT IN ANY DISTRESS. SAFETY MEASURE ARE IMPLEMENTED PER HOSPITAL POLICY. BED IS IN THE LOWEST POSITION. SIDE RAILS ARE UP X2.CALL LIGHT WITHIN THE REACH.WILL ENDORSE TO NEXT SHIFT FOR MARIANELA.
--- NOTE | 2020-01-31 19:31 | NUR ---
SPEARER OPENING NOTES: Rec'd pt in bed A&Ox3, mainly Thai speaking. On 2LPM NC tolerating well, no SOB or resp distress noted. Breathing even and unlabored. SR on tele monitor. YOVANA AV shunt noted. Right hand #18 patent and flushed. Dressing c/d/i. Safety measures in place. Will continue to monitor.
[2020-01-31] MEDS: DEXAMETHASONE 4 MG TABLET PO SCH (19:37)
[2020-01-31 20:10] LABS: D-DIMER 3.33 mg/L(FEU (0.17-0.50)
[2020-01-31] MEDS: CEFEPIME 1 GM in IV D5W 50 ML IV SCH (20:32)
--- NOTE | 2020-01-31 21:20 | NUR ---
PARLOR MAID NOTE: Rec'd call from lab asking if ok to separate lab misc. lab orders placed by Dr. Sky because blood sample is there but urine not available. 2111: Paged Dr. Sky asking if ok to separate. Replied with "yes". Lab aware.
[2020-02-01] VITALS (17 sets, daily range): BP systolic 115–164; BP diastolic 60–91
--- NOTE | 2020-02-01 01:14 | NUR ---
SENIOR PREMIUM AUDITOR NOTE: Offered pt a bed bath and linen change at this time. Pt stated "maybe later". Will offer again later.
--- NOTE | 2020-02-01 04:17 | NUR ---
DROP FORGE HAND NOTE: Offered pt bed bath and linen change again. Pt stated "not today." Explained importance of bed bath/linen change and continued to refuse. Will continue to monitor.
[2020-02-01 04:56] LABS: BASOPHILS % (AUTO) 0.3 % (0.0-2.0); EOSINOPHILS % (AUTO) 1.3 % (0.0-6.0); HEMATOCRIT 23 % (39-51); LYMPHOCYTES # (AUTO) 0.5 /CMM (0.8-4.8); LYMPHOCYTES % (AUTO) 4.3 % (20.0-44.0); MEAN CORPUSCULAR HGB CONC 34 g/dl (31.0-36.0); MEAN CORPUSCULAR VOLUME 98 fL (80-96); MONOCYTES # (AUTO) 0.2 /CMM (0.1-1.30); MONOCYTES % (AUTO) 2.2 % (2.0-12.0); NEUTROPHILS % (AUTO) 91.9 % (43.0-81.0); PLATELET COUNT (AUTO) 120 /CMM (150-450); RED BLOOD CELL COUNT(AUTO) 2.38 MIL/uL (4.5-6.0); WHITE BLOOD COUNT (AUTO) 10.9 K/uL (4.3-11.0)
[2020-02-01 05:11] LABS: CALCIUM, SERUM 9.1 mg/dL (8.5-10.1); CREATININE 6.8 mg/dL (0.6-1.3); MAGNESIUM 2.6 mg/dL (1.8-2.4); POTASSIUM 5.2 mmol/L (3.5-5.1)
[2020-02-01 05:15] LABS: PHOSPHORUS 8.1 mg/dL (2.5-4.9)
--- NOTE | 2020-02-01 07:06 | NUR ---
CONTACT CENTER ASSOCIATE CLOSING NOTES: Pt remains on 4LPM NC, tolerating well. No SOB or resp distress noted throughout shift. SR on tele monitor. YOVANA AV shunt intact. Right hand #18 patent and flushing. Dressing c/d/i. No acute changes noted throughout shift. All due meds given as ordered. Pt refused bed bath/linen change throughout shift. Safety measures in place. Will endorse to oncoming nurse for MARIANELA.
[2020-02-01] MEDS: VIT B CMPLX 3/FA/VIT C/BIOTIN 1 TAB TABLET PO SCH (08:35)
[2020-02-01] MEDS: DEXAMETHASONE 4 MG TABLET PO SCH (08:36)
[2020-02-01] MEDS: AMLODIPINE BESYLATE 10 MG TABLET PO SCH (08:36)
[2020-02-01] MEDS: METOPROLOL SUCCINATE 25 MG TAB.SR.24H PO SCH (08:36)
[2020-02-01] MEDS: ESCITALOPRAM OXALATE (10 MG) 10 MG TABLET PO SCH (08:37)
--- NOTE | 2020-02-01 14:15 | NUR ---
Received patient from ICU. PAtient is awake , alert and oriented x3 , able to make needs known. Isolation precautions for COVID implemented. VS are stable, breathing unlabored and even on 4l O2 via nasal canula, skin is intact. YOVANA AV shunt ; dressing intact . Safety precautions in place, call light within reach.Placed on TELE monitor ; reading SR 85 . Will continue to motor
[2020-02-01] MEDS ORDERED: EPOETIN ALFA (10,000 UNIT) 10,000 UNIT/ML VIAL IV ONE (15:00)
--- NOTE | 2020-02-01 18:22 | NUR ---
Patient is awake , alert and oriented x3. VS are stable, breathing unlabored and even on 4l O2 via nasal canula. IV line intact and patent. Safety precautions in place. Call light within reach. On TELE monitor reading SR 85-87. Patient noted with fair appetite. Will endorse to next shift for MARIANELA
--- NOTE | 2020-02-01 19:55 | NUR ---
Patient in bed awake, alert, and oriented x3. Patient able to make needs known. Patient breathing well on 4L of Oxygen via nasal canula. Breathing even and unlabored. No SOB or acute respiratory distress noted. On cardiac monitoring, sinus rhythm. Noted IV access on righ hand, 28 gauge, dressing dry and intact, patent, no redness or infiltration. Safety precaution is in place, bed is in the lowest level, bed is locked, alarm is on, side rails x2 are up, and call light is within reach. Will continue to monitor.
[2020-02-01] MEDS: CEFEPIME 1 GM in IV D5W 50 ML IV SCH (21:30)
--- NOTE | 2020-02-01 23:05 | NUR ---
TRIM MECHANIC CONTINUITY OF CARE NOTES RECEIVED PATIENT IN PATIENT IN BED AWAKE ALERT AND ORIENTED X3, ABLE TO MAKE SIMPLE NEEDS KNOWN, ON 4 L VIA NC TOLERATING WELL, RESPIRATIONS EVEN AND UNLABORED WITH EQUAL RISE AND FALL OF CHEST, DENIES ANY PAIN OR DISCOMFORT AT THIS TIME, RIGHT HAND #18G INTACT AND PATENT, NO REDNESS NO INFILTRATION, ORIENTED TO STAFF AND CALL LIGHT AND KEPT WITHIN REACH, LOW BED AND LOCKED, BED ALARM IN PLACE, ALL NEEDS ATTENDED WILL CONTINUE TO MONITOR AND ATTEND TO NEEDS.
--- NOTE | 2020-02-01 23:05 | NUR ---
ON CARDIAC TELE SR WITH BBB 82 NO DISTRESS PRESENT, REMAINS COMFORTABLE.
--- NOTE | 2020-02-01 23:05 | NUR ---
Endorsed report to Carmen MANNING for continuity of care.
[2020-02-02] VITALS (7 sets, daily range): BP systolic 119–152; BP diastolic 54–70
--- NOTE | 2020-02-02 06:29 | NUR ---
NURSERY ATTENDANT CLOSING NOTES PATIENT IN BED AWAKE ALERT AND ORIENTED X3, ABLE TO MAKE SIMPLE NEEDS KNOWN, ON 4 L VIA NC TOLERATING WELL, RESPIRATIONS EVEN AND UNLABORED WITH EQUAL RISE AND FALL OF CHEST, DENIES ANY PAIN OR DISCOMFORT AT THIS TIME, RIGHT HAND #18G INTACT AND PATENT, NO REDNESS NO INFILTRATION, CALL LIGHT KEPT WITHIN REACH, LOW BED AND LOCKED, BED ALARM IN PLACE, ALL NEEDS ATTENDED WILL CONTINUE TO MONITOR AND ATTEND TO NEEDS AND ENDORSE TO NEXT SHIFT. BED BATH GIVEN, ON TELE MONITORING SR WITH BBB 60, REMAINS COMFORTABLE NO DISTRESS PRESENT.
--- NOTE | 2020-02-02 06:32 | NUR ---
RN NOTES LEFT AV SHUNT BRUIT/THRILL PRESENT.
[2020-02-02 06:40] LABS: BASOPHILS % (AUTO) 0.2 % (0.0-2.0); EOSINOPHILS % (AUTO) 0.6 % (0.0-6.0); HEMATOCRIT 24 % (39-51); HEMOGLOBIN 8.2 g/dL (13.5-17.5); LYMPHOCYTES # (AUTO) 0.6 /CMM (0.8-4.8); LYMPHOCYTES % (AUTO) 4.7 % (20.0-44.0); MEAN CORPUSCULAR HGB CONC 34 g/dl (31.0-36.0); MEAN CORPUSCULAR VOLUME 98 fL (80-96); MONOCYTES # (AUTO) 0.2 /CMM (0.1-1.30); MONOCYTES % (AUTO) 2.1 % (2.0-12.0); NEUTROPHILS # (AUTO) 11.1 /CMM (1.8-8.9); NEUTROPHILS % (AUTO) 92.4 % (43.0-81.0); PLATELET COUNT (AUTO) 108 /CMM (150-450); RED BLOOD CELL COUNT(AUTO) 2.48 MIL/uL (4.5-6.0)
[2020-02-02 06:54] LABS: MAGNESIUM 2.6 mg/dL (1.8-2.4); POTASSIUM 6.1 mmol/L (3.5-5.1)
[2020-02-02 07:14] LABS: PHOSPHORUS 9.6 mg/dL (2.5-4.9)
[2020-02-02 07:15] LABS: CREATININE 8.3 mg/dL (0.6-1.3)
[2020-02-02 07:20] LABS: FERRITIN 8108 ng/mL (8-388)
--- NOTE | 2020-02-02 07:23 | NUR ---
SOCK FOLDER OPENING NOTES RECEIVED PATIENT IN BED, AWAKE, A/O X3. PATIENT ON OXYGEN THERAPY AT 4LPM VIA NASAL CANNULA; BREATHING IS EVEN AND UNLABORED; NO SOB NOTED AT THIS POINT. TELE MONITOR WITH A CURRENT READING OF SINUS RHYTHM WITH BBB 74 BPM. R HAND IV ACCESS G # 18 PRESENT AND INTACT AND A YOVANA AV SHUNT. NO COMPLAINS OF PAIN. SAFETY PRECAUTIONS IN PLACE; BED IN LOW POSITION AND LOCKED, RAILS UPX2, CALL LIGHT WITHIN REACH. WILL CONTINUE TO MONITOR PATIENT.
--- NOTE | 2020-02-02 07:24 | NUR ---
BIOLOGICS SPECIALIST CRITICAL RESULT RECEIVED CALL FROM LAB WITH A CRITICAL RESULT FOR PHOSPHORUS OF 9.6. NOTIFIED.
--- NOTE | 2020-02-02 07:43 | NUR ---
A AND P MECHANIC NOTES LABS UPDATES WITH HIGH RESULTS FOR BUN 134 AND CR 8.3 MD NOTIFIED
[2020-02-02 07:52] LABS: IRON, SERUM 69 ug/dl (50-175); TOTAL IRON BINDING CAPACITY 102 ug/dl (250-450)
[2020-02-02] MEDS: DEXAMETHASONE 4 MG TABLET PO SCH (08:22)
[2020-02-02] MEDS: VIT B CMPLX 3/FA/VIT C/BIOTIN 1 TAB TABLET PO SCH (08:22)
[2020-02-02] MEDS: ESCITALOPRAM OXALATE (10 MG) 10 MG TABLET PO SCH (08:23)
[2020-02-02] MEDS: AMLODIPINE BESYLATE 10 MG TABLET PO SCH (08:23)
[2020-02-02] MEDS: METOPROLOL SUCCINATE 25 MG TAB.SR.24H PO SCH (08:24)
--- NOTE | 2020-02-02 14:46 | NUR ---
SHIPPING CLERK/ADMIN NOTES PATIENT STARTED HEMODIALYSIS.
--- NOTE | 2020-02-02 17:20 | NUR ---
AERONAUTICAL RESEARCH ENGINEER NOTES HEMODIALYSIS OVER; 1100 MLS OUT. VS: BP 115/54 HR 87
--- NOTE | 2020-02-02 18:44 | NUR ---
SENIOR MARKET INTELLIGENCE CONSULTANT CLOSING NOTES PATIENT REMAINS IN BED, AWAKE, A/O X3. PATIENT ON OXYGEN THERAPY AT 4LPM VIA NASAL CANNULA; BREATHING IS EVEN AND UNLABORED; NO SOB NOTED DURING THE SHIFT. TELE MONITOR WITH A CURRENT READING OF SINUS RHYTHM WITH PVC 76 BPM. R HAND IV ACCESS G # 18 PRESENT AND INTACT AND A YOVANA AV SHUNT. HD DONE TODAY WITH 1100 MLS OUTPUT. NO COMPLAINS OF PAIN. ALL NEEDS ATTENDED TO THROUGHOUT THE DAY. SAFETY PRECAUTIONS IN PLACE; BED IN LOW POSITION AND LOCKED, RAILS UPX2, CALL LIGHT WITHIN REACH. WILL ENDORSE TO [place] TOUR GUIDE NURSE.
--- NOTE | 2020-02-02 19:25 | NUR ---
EARLY CHILDHOOD LEAD TEACHER: RECEIVED PATIENT Patient in bed, awake, A/O x3 understand and speaks some Italian. Tolerating Oxygen 4L via NC, Sinus rhythm, BBB with PVC HR 85 in the Tele monitor. Order place for Type and Screen, Form FDA faxed to lab per NIGEL Berkowitz. Convalescent Plasma to administer when available. Contact isolation, Droplet precaution with Eye shield protection maintained.
[2020-02-02] MEDS: VANCOMYCIN 500 MG in IV D5W 100 ML IV PRN (20:20)
--- NOTE | 2020-02-02 20:22 | NUR ---
VANCOMYCIN PRN HD post HD treatment today. Vancomycin level 15. Pharmacy aware. Vancomycin PRN HD administered.
[2020-02-02] MEDS: CEFEPIME 1 GM in IV D5W 50 ML IV SCH (21:20)
--- NOTE | 2020-02-02 21:59 | NUR ---
CONVALESCENT PLASMA X1 Called and spoke with Dr. Turcios, ordered to place Convalescent Plasma x1. Informed lab. Karely,daughter consented, witnessed by NIGEL Martinez
[2020-02-03] VITALS (7 sets, daily range): BP systolic 113–155; BP diastolic 57–78
--- NOTE | 2020-02-03 06:17 | NUR ---
DIRECT OF REAL ESTATE: END OF SHIFT REPORT Patient in bed. A/O x3. Remains on supplemental Oxygen 4L via NC, Oxygen sat in the low 90's. On IV Maxipime and Vancomycin, afebrile during the shift. Plan for infusion- Convalescent Plasma x1. Lab to inform RN when Plasma is available. Contact isolation, Droplet precaution with Eye protection maintained. Will endorse to oncoming RN.
[2020-02-03 07:06] LABS: BASOPHILS % (AUTO) 0.4 % (0.0-2.0); EOSINOPHILS % (AUTO) 0.5 % (0.0-6.0); HEMATOCRIT 22 % (39-51); HEMOGLOBIN 7.5 g/dL (13.5-17.5); LYMPHOCYTES # (AUTO) 0.4 /CMM (0.8-4.8); LYMPHOCYTES % (AUTO) 3.5 % (20.0-44.0); MEAN CORPUSCULAR HGB CONC 34 g/dl (31.0-36.0); MEAN CORPUSCULAR VOLUME 102 fL (80-96); MONOCYTES # (AUTO) 0.2 /CMM (0.1-1.30); MONOCYTES % (AUTO) 2.1 % (2.0-12.0); NEUTROPHILS # (AUTO) 9.6 /CMM (1.8-8.9); NEUTROPHILS % (AUTO) 93.5 % (43.0-81.0); PLATELET COUNT (AUTO) 80 /CMM (150-450); RED BLOOD CELL COUNT(AUTO) 2.16 MIL/uL (4.5-6.0); WHITE BLOOD COUNT (AUTO) 10.2 K/uL (4.3-11.0)
--- NOTE | 2020-02-03 07:15 | NUR ---
ms rn received on bed, awake,alert,oriented x3,kyrgyz speaking,not in any form of distress, respirations even and unlabored,no sob noted, lungs have ronchi bilaterally, on 92% at 4 liters nc, denies pain at this time, no distress noted, still waiting for availability of convalescent plasma to be transfuse.all needs attended.
[2020-02-03 07:47] LABS: CALCIUM, SERUM 8.5 mg/dL (8.5-10.1); CREATININE 6.2 mg/dL (0.6-1.3); MAGNESIUM 2.6 mg/dL (1.8-2.4); POTASSIUM 5.2 mmol/L (3.5-5.1)
[2020-02-03 08:05] LABS: PHOSPHORUS 8.8 mg/dL (2.5-4.9)
[2020-02-03 08:09] LABS: PROSTATE SPECIFIC ANTIGEN SCR 1.07 ng/mL (0.00-4.00)
--- NOTE | 2020-02-03 08:30 | NUR ---
ms fernandez breakfast served,due meds given tolerated well.
[2020-02-03] MEDS: ESCITALOPRAM OXALATE (10 MG) 10 MG TABLET PO SCH (08:45)
[2020-02-03] MEDS: VIT B CMPLX 3/FA/VIT C/BIOTIN 1 TAB TABLET PO SCH (08:45)
--- NOTE | 2020-02-03 08:45 | NUR ---
ms rn received a critical level of phosphorus-8.8, ashkan fnps aware, all needs attended.
[2020-02-03] MEDS: DEXAMETHASONE 4 MG TABLET PO SCH (08:46)
--- NOTE | 2020-02-03 09:00 | NUR ---
ms rn was seen by dr. dean, awaiting for orders.no hd today per md.
[2020-02-03 09:21] LABS: BAND % (MANUAL) 2 % (0.0-5.0); LYMPHOCYTES % (MANUAL) 3 % (16-48); MONOCYTES % (MANUAL) 2 % (0-11.0); NEUTROPHILS % (MANUAL) 93 (42-76)
--- NOTE | 2020-02-03 10:00 | NUR ---
ms rn started convalescent plasma transfusion w/o adverse reaction noted.
--- NOTE | 2020-02-03 10:30 | NUR ---
ms rn convalescent plasma done, no reaction noted, v/s wnl.
[2020-02-03] MEDS: AMLODIPINE BESYLATE 10 MG TABLET PO SCH (11:39)
[2020-02-03] MEDS: METOPROLOL SUCCINATE 25 MG TAB.SR.24H PO SCH (11:39)
[2020-02-03] MEDS ORDERED: CALCIUM ACETATE 667 MG TABLET PO SCH (13:00)
[2020-02-03] MEDS: SEVELAMER CARBONATE 800 MG TABLET PO SCH ×2 (13:14→18:00)
--- NOTE | 2020-02-03 14:00 | NUR ---
ms rn on bed, watching tv.
--- NOTE | 2020-02-03 16:45 | NUR ---
ms rn on bed, no distress noted.
--- NOTE | 2020-02-03 18:00 | NUR ---
ms rebecca barreto,not given,patient refused dinner.
--- NOTE | 2020-02-03 18:48 | NUR ---
ms rn on bed,no distress noted.
--- NOTE | 2020-02-03 19:00 | NUR ---
RN OPENING NOTES Received patient asleep on bed, no s/sx of discomfort noted. On O2 via NC @ 4LPM SpO2 93%. On tele monitor with NSR noted. Kept on bed clean, dry and comfortable. On fall and aspiration precautions. Will continue to monitor accordingly.
[2020-02-03] MEDS: CEFEPIME 1 GM in IV D5W 50 ML IV SCH (20:43)
[2020-02-04] VITALS (7 sets, daily range): BP systolic 113–151; BP diastolic 50–82
--- NOTE | 2020-02-04 06:55 | NUR ---
RN CLOSING NOTES Pt asleep on bed resting. No new complaints made. All nursing needs attended. On tele monitor with NSR noted. Kept on bed clean, dry and comfortable. Endorsed.
[2020-02-04 07:27] LABS: BASOPHILS # (AUTO) 0.1 /CMM (0.0-0.2); BASOPHILS % (AUTO) 1.2 % (0.0-2.0); EOSINOPHILS % (AUTO) 0.3 % (0.0-6.0); HEMATOCRIT 23 % (39-51); HEMOGLOBIN 7.6 g/dL (13.5-17.5); LYMPHOCYTES # (AUTO) 0.6 /CMM (0.8-4.8); LYMPHOCYTES % (AUTO) 5.3 % (20.0-44.0); MEAN CORPUSCULAR HGB CONC 32 g/dl (31.0-36.0); MEAN CORPUSCULAR VOLUME 98 fL (80-96); MONOCYTES # (AUTO) 0.2 /CMM (0.1-1.30); MONOCYTES % (AUTO) 1.4 % (2.0-12.0); NEUTROPHILS # (AUTO) 10.7 /CMM (1.8-8.9); NEUTROPHILS % (AUTO) 91.8 % (43.0-81.0); PLATELET COUNT (AUTO) 81 /CMM (150-450); WHITE BLOOD COUNT (AUTO) 11.6 K/uL (4.3-11.0)
[2020-02-04 07:43] LABS: MAGNESIUM 2.8 mg/dL (1.8-2.4); POTASSIUM 5.9 mmol/L (3.5-5.1)
[2020-02-04] MEDS: SEVELAMER CARBONATE 800 MG TABLET PO SCH ×3 (08:00→18:00)
[2020-02-04 08:19] LABS: CREATININE 7.5 mg/dL (0.6-1.3); PHOSPHORUS 10.6 mg/dL (2.5-4.9)
[2020-02-04] MEDS ORDERED: DEXTROSE 50%-WATER 50 ML DISP.SYRIN IV PRN (09:00)
[2020-02-04] MEDS: METOPROLOL SUCCINATE 25 MG TAB.SR.24H PO SCH (09:00)
[2020-02-04] MEDS: AMLODIPINE BESYLATE 10 MG TABLET PO SCH (09:00)
[2020-02-04] MEDS: DEXAMETHASONE 4 MG TABLET PO SCH (09:00)
[2020-02-04] MEDS: VIT B CMPLX 3/FA/VIT C/BIOTIN 1 TAB TABLET PO SCH (09:00)
[2020-02-04] MEDS: ESCITALOPRAM OXALATE (10 MG) 10 MG TABLET PO SCH (09:00)
--- NOTE | 2020-02-04 10:00 | NUR ---
TELEGRAPHIC SERVICE DISPATCHER NOTES HELD AM MEDS, ANTICIPATING HD.
[2020-02-04] MEDS: INSULIN REGULAR, HUMAN 100 UNIT/ML 3 ML VIAL SQ PRN ×3 (10:36→18:19)
[2020-02-04 11:45] LABS: BAND % (MANUAL) 4 % (0.0-5.0); LYMPHOCYTES % (MANUAL) 5 % (16-48); MONOCYTES % (MANUAL) 2 % (0-11.0); MYELOCYTES % 1 % (0-0); NEUTROPHILS % (MANUAL) 88 (42-76)
--- NOTE | 2020-02-04 12:14 | NUR ---
RN NOTES TOMMY RAWLS, PATIENT CURRENTLY RECEIVING HD.
[2020-02-04] MEDS: BLOOD SUGAR DIAGNOSTIC 1 EACH STRIP IN SCH ×2 (12:17→18:19)
--- NOTE | 2020-02-04 13:33 | NUR ---
ARCHEOLOGIST CLASSICAL NOTES 1 PRBC ADMINISTERED BY DIALYSIS NURSE DURING HD TX GORAN WELL WITHOUT S/S OF COMPLICATIONS OBSERVED POST BLOOD TRANSFUSION.
[2020-02-04] MEDS ORDERED: EPOETIN ALFA (10,000 UNIT) 10,000 UNIT/ML VIAL IV SCH (15:00)
[2020-02-04] MEDS ORDERED: VANCOMYCIN IV ONE (17:00)
[2020-02-04] MEDS ORDERED: [UNRECOGNIZED DRUG - OTHER] IV ONE (17:00)
--- NOTE | 2020-02-04 17:05 | NUR ---
WOMEN'S SWIM COACH NOTES PATIENT COMPLETED HD TX GORAN WELL, OUTPUT 1 L.
--- NOTE | 2020-02-04 19:08 | NUR ---
FURNACE CONVERTER NOTES PATIENT RESTING COMFORTABLY IN BED, ASLEEP. AROUSABLE TO VERBAL AND TACTILE STIMULI. HOB ELEVATED. ALERT AND ORIENTED X2. ON 02 AT 2L/MIN VIA NC GORAN WELL. NOTED WITH ON AND OFF COUGH WITH YELLOW GREEN SECRETIONS, PATIENT ABLE TO COUGH OUT SECRETIONS. REMAIN ON TELE MONITORING SR WITH BBB: 63. RIGHT HAND # 18 SL INTACT AND PATENT. LEFT ARM AV SHUNT WITH GOOD BRUIT/THRILL. BED IN LOWEST POSITION, LOCKED. BED ALARM ON. CALL LIGHT WITHIN REACH. IN NO APPARENT DISTRESS.
--- NOTE | 2020-02-04 19:10 | NUR ---
TELE/RN OPENING NOTES: RECEIVED PATIENT RESTING COMFORTABLY IN BED, AROUSABLE TO VERBAL AND TACTILE STIMULI. HOB ELEVATED. ALERT AND ORIENTED X2. ON 02 AT 2L/MIN VIA NC TOLERATING WELL. IN NO APPARENT DISTRESS. NOTED WITH ON AND OFF COUGH WITH YELLOW GREEN SECRETIONS, PATIENT ABLE TO COUGH OUT SECRETIONS. ON TELE MONITORING SR WITH BBB: 60. RIGHT HAND # 18 SL INTACT AND PATENT. LEFT ARM AV SHUNT WITH GOOD BRUIT/THRILL. BED IN LOWEST POSITION, LOCKED. BED ALARM ON. CALL LIGHT WITHIN REACH. WILL CONTINUE TO MONITOR ACCORDINGLY.
[2020-02-04] MEDS: CEFEPIME 1 GM in IV D5W 50 ML IV SCH (20:52)
[2020-02-05] VITALS: BP 147/61
[2020-02-05] MEDS: BLOOD SUGAR DIAGNOSTIC 1 EACH STRIP IN SCH ×5 (00:22→23:27)
[2020-02-05] MEDS: INSULIN REGULAR, HUMAN 100 UNIT/ML 3 ML VIAL SQ PRN ×5 (00:29→23:23)
--- NOTE | 2020-02-05 00:39 | NUR ---
TELE/RN NOTES: PT. BLOOD SUGAR IS 170. ADMINISTERED A COVERAGE OF 4 UNITS PER SLIDING SCALE. PT GIVEN APPLE JUICE TO AVOID SUGAR FROM DROPPING DRASTICALLY. WILL CONTINUE TO MONITOR ACCORDINGLY.
[2020-02-05 04:00] VITALS: BP 163/56
[2020-02-05 05:31] VITALS: BP 148/66
--- NOTE | 2020-02-05 06:00 | NUR ---
TELE/RN NOTES: PT. BLOOD SUGAR IS 207. ADMINISTERED A COVERAGE OF 8 UNITS PER AGGRESSIVE SLIDING SCALE. COSIGNED WITH ANOTHER RN. PT GIVEN APPLE JUICE TO AVOID SUGAR FROM DROPPING DRASTICALLY. WILL KEEP MONITORING PT. ACCORDINGLY.
--- NOTE | 2020-02-05 06:24 | NUR ---
TELE/RN CLOSING NOTES: PATIENT REMAINS RESTING IN BED, KEPT WARM AND COMFORTABLE THROUGHOUT THE SHIFT. REMAIN CLEAN AND DRY ALL NIGHT. HOB ELEVATED. ALERT AND ORIENTED X1-2. ON O2 AT 2L/MIN VIA NC TOLERATING WELL. IN NO APPARENT DISTRESS. DENIES PAIN AT THIS TIME. NOTED WITH ON AND OFF COUGH WITH YELLOW GREEN SECRETIONS, PATIENT ABLE TO COUGH OUT SECRETIONS. ON TELE MONITORING SR WITH PVC AND BBB: HR 88. IV ON THE RIGHT HAND # 18 SL INTACT AND PATENT. LEFT ARM AV SHUNT NOTED WITH GOOD BRUIT/THRILL. SAFETY MEASURES KEPT IN PLACE. BED IN LOCKED, LOWEST POSITION, BED ALARM ON WITH SR UP X2. ALL DUE MEDS GIVEN ORDERED. ALL NURSING NEEDS MET AND RENDERED, CALL LIGHT WITHIN REACH. WILL ENDORSE TO DAY SHIFT FOR MARIANELA.
[2020-02-05 07:17] LABS: BASOPHILS # (AUTO) 0.1 /CMM (0.0-0.2); BASOPHILS % (AUTO) 0.6 % (0.0-2.0); HEMATOCRIT 26 % (39-51); LYMPHOCYTES # (AUTO) 0.9 /CMM (0.8-4.8); LYMPHOCYTES % (AUTO) 7.3 % (20.0-44.0); MEAN CORPUSCULAR HGB CONC 35 g/dl (31.0-36.0); MEAN CORPUSCULAR VOLUME 102 fL (80-96); MONOCYTES # (AUTO) 0.2 /CMM (0.1-1.30); MONOCYTES % (AUTO) 1.3 % (2.0-12.0); NEUTROPHILS # (AUTO) 10.7 /CMM (1.8-8.9); NEUTROPHILS % (AUTO) 89.8 % (43.0-81.0); PLATELET COUNT (AUTO) 91 /CMM (150-450); RED BLOOD CELL COUNT(AUTO) 2.56 MIL/uL (4.5-6.0); WHITE BLOOD COUNT (AUTO) 11.9 K/uL (4.3-11.0)
[2020-02-05 07:34] LABS: CALCIUM, SERUM 8.7 mg/dL (8.5-10.1); CREATININE 6.2 mg/dL (0.6-1.3); MAGNESIUM 2.8 mg/dL (1.8-2.4); PHOSPHORUS 6.8 mg/dL (2.5-4.9); POTASSIUM 4.7 mmol/L (3.5-5.1)
[2020-02-05 08:00] VITALS: BP 141/78
--- NOTE | 2020-02-05 08:00 | NUR ---
MS RN OPEN NOTES PATIENT IS A/O X 2. WITH NO SIGNS OF DISTRESS ON 3L OF NASAL CANNULA SPO2 92%. ON TELE MONITOR SR 88 WITH PVC WITH BBB. IV R HAND #18G SL AND L UA AV SHUNT. NO COMPLAIN OF PAIN AT THIS MOMENT. SAFETY MEASURES ARE BEING APPLIED, BED IS IN LOW AND LOCKED POSITION, SIDE RAILS UP X 2, CALL LIGHT WITHIN REACH. WILL CONTINUE TO MONITOR.
[2020-02-05 08:58] LABS: EOSINOPHILS % (MANUAL) 1 % (0-4); LYMPHOCYTES % (MANUAL) 8 % (16-48); NEUTROPHILS % (MANUAL) 91 (42-76)
[2020-02-05] MEDS: AMLODIPINE BESYLATE 10 MG TABLET PO SCH (09:31)
[2020-02-05] MEDS: VIT B CMPLX 3/FA/VIT C/BIOTIN 1 TAB TABLET PO SCH (09:31)
[2020-02-05] MEDS: ESCITALOPRAM OXALATE (10 MG) 10 MG TABLET PO SCH (09:31)
[2020-02-05] MEDS: DEXAMETHASONE 4 MG TABLET PO SCH (09:32)
[2020-02-05] MEDS: METOPROLOL SUCCINATE 25 MG TAB.SR.24H PO SCH (09:32)
[2020-02-05] MEDS: SEVELAMER CARBONATE 800 MG TABLET PO SCH ×3 (09:34→17:39)
[2020-02-05] MEDS: NEPRO VAN 237 ML CAN PO PRN (12:40)
--- NOTE | 2020-02-05 17:00 | NUR ---
PATIENT BLOOD SUGAR 449 GAVE 20 UNITS AND INFORMED TOMER Middleton SEWING MACHINES SALESPERSON. MONITOR AND RE-CHECK BLOOD SUGAR IN HALF HOUR AND NO FURTHER ORDER AT THIS TIME. WILL CONTINUE TO MONITOR.
--- NOTE | 2020-02-05 18:00 | NUR ---
PATIENT BLOOD SUGAR RE-ASSESSED WENT UP TO 522 AFTER EATING 100% OF HIS DINNER. INFORMED TOMER Middleton CABINET FINISHER. NO FURTHER ORDER FROM CABINET FINISHER. WILL CONTINUE TO MONITOR BLOOD SUGAR.
--- NOTE | 2020-02-05 19:47 | NUR ---
SPRING MAKER CLOSED NOTES PATIENT IS A/O X 2. WITH NO SIGNS OF DISTRESS ON 4L OF NASAL CANNULA SPO2 97%. ON TELE MONITOR SR 87. IV R HAND #18G SL AND L UA AV SHUNT. NO COMPLAIN OF PAIN AT THIS MOMENT. PATIENT KEPT CLEAN AND DRY. ALL NEEDS, CARE, TREATMENT AND MEDICATIONS ADMINISTERED ANTICIPATED PER ORDER. SAFETY MEASURES ARE APPLIED BED IS IN LOW AND LOCKED POSITION, SIDE RAILS UP X 2. CALL LIGHT WITHIN REACH, WILL ENDORSE TO THE NEXT LEASING ASSOCIATE.
[2020-02-05 20:00] VITALS: BP 126/52
[2020-02-05] MEDS: CEFEPIME 1 GM in IV D5W 50 ML IV SCH (20:08)
--- NOTE | 2020-02-05 20:18 | NUR ---
TELE/RN OPENING NOTE Patient awake in bed, A/O x2, bed rest. Breathing even, unlabored, on 4 LPM NC. Tele monitor reading sinus rhythm. No acute distress noted. Skin warm, pink, dry, appropriate for ethnicity. BLLE scabs noted. Abdomen small, round, non-tender. BS active. Patient is on renal diet. Patient is incontinent. Urine output clear, yellow. DVT pumps in place. Bed in low position, wheels locked, side rails up x2, call light within reach.
[2020-02-06] VITALS (8 sets, daily range): BP systolic 116–156; BP diastolic 53–72
[2020-02-06] MEDS: INSULIN REGULAR, HUMAN 100 UNIT/ML 3 ML VIAL SQ PRN ×4 (05:16→23:43)
[2020-02-06] MEDS: BLOOD SUGAR DIAGNOSTIC 1 EACH STRIP IN SCH ×4 (05:21→23:43)
[2020-02-06] MEDS: NEPRO VAN 237 ML CAN PO PRN (05:21)
--- NOTE | 2020-02-06 06:05 | NUR ---
TELE/RN CLOSING NOTE Patient awake in bed, A/O x2, bed rest. Breathing even, unlabored, on 4 LPM NC. Tele monitor reading sinus rhythm. No acute distress noted. BLLE scabs noted. Patient is on renal diet. Patient is incontinent. Urine output clear, yellow, void 3x. No bowel movement. DVT pumps in place. Bed in low position, wheels locked, side rails up x2, call light within reach.
[2020-02-06 06:43] LABS: BASOPHILS % (AUTO) 0.2 % (0.0-2.0); EOSINOPHILS % (AUTO) 0.2 % (0.0-6.0); HEMATOCRIT 22 % (39-51); HEMOGLOBIN 7.1 g/dL (13.5-17.5); LYMPHOCYTES # (AUTO) 0.7 /CMM (0.8-4.8); LYMPHOCYTES % (AUTO) 4.1 % (20.0-44.0); MEAN CORPUSCULAR HGB CONC 33 g/dl (31.0-36.0); MEAN CORPUSCULAR VOLUME 97 fL (80-96); MONOCYTES # (AUTO) 0.1 /CMM (0.1-1.30); MONOCYTES % (AUTO) 0.7 % (2.0-12.0); NEUTROPHILS # (AUTO) 15.4 /CMM (1.8-8.9); NEUTROPHILS % (AUTO) 94.8 % (43.0-81.0); PLATELET COUNT (AUTO) 112 /CMM (150-450); RED BLOOD CELL COUNT(AUTO) 2.21 MIL/uL (4.5-6.0); WHITE BLOOD COUNT (AUTO) 16.3 K/uL (4.3-11.0)
--- NOTE | 2020-02-06 07:03 | NUR ---
REGISTRATION REPRESENTATIVE OPENING NOTES RECEIVED PT AWAKE IN BED AT THIS TIME. AOX2. KINYARWANDA SPEAKING. NO SOB NOTED, NO S/S OF ANY ACUTE DISTRESS NOTED. NO C/O PAIN AT THIS TIME. RESPIRATIONS ARE EVEN AND UNLABORED WITH EQUAL RISE AND FALL IN CHEST. PT NOTED ON 4LPM OXYGEN VIA NC. IV ACCESS NOTED IN RIGHT HAND G#18, INTACT, PATENT AND FLUSHING WELL. SAFETY PRECAUTION IN PLACE AND MAINTAINED AT ALL TIMES. BED IN LOWEST LOCKED POSITION, HOB ELEVATED, SIDE RAILS UP X 2, CALL LIGHT WITHIN REACH. WILL CONTINUE TO MONITOR
[2020-02-06 07:08] LABS: CALCIUM, SERUM 8.6 mg/dL (8.5-10.1); MAGNESIUM 2.6 mg/dL (1.8-2.4); PHOSPHORUS 7.3 mg/dL (2.5-4.9); POTASSIUM 4.7 mmol/L (3.5-5.1)
[2020-02-06] MEDS: SEVELAMER CARBONATE 800 MG TABLET PO SCH ×3 (07:50→17:35)
[2020-02-06] MEDS: VIT B CMPLX 3/FA/VIT C/BIOTIN 1 TAB TABLET PO SCH (09:13)
[2020-02-06] MEDS: METOPROLOL SUCCINATE 25 MG TAB.SR.24H PO SCH (09:13)
[2020-02-06] MEDS: ESCITALOPRAM OXALATE (10 MG) 10 MG TABLET PO SCH (09:13)
[2020-02-06] MEDS: DEXAMETHASONE 4 MG TABLET PO SCH (09:14)
[2020-02-06] MEDS: AMLODIPINE BESYLATE 10 MG TABLET PO SCH (09:14)
--- NOTE | 2020-02-06 10:00 | NUR ---
JASPREET CARTY's DAUGHTER ([phone]) CALLED AND WAS UPDATED. WILL CONTINUE TO MONITOR
--- NOTE | 2020-02-06 10:00 | NUR ---
JASPREET CARTY'S DAUGHTER UPDATED ON PT'S CONDITION. TELEPHONE CONSENT RECEIVED FROM JASPREET CARTY'S DAUGHTER FOR BLOOD TRANSFUSION. WILL CONTINUE WITH PLAN OF CARE Addendum: 02/06/20 at 1333 by HALIE SOTO RN JASPREET CARTY'S DAUGHTER UPDATED ON PT'S CONDITION. TELEPHONE CONSENT RECEIVED FROM JASPREET CARTY'S DAUGHTER FOR BLOOD TRANSFUSION, VERIFIED BY ANOTHER NURSE, NIGEL ZAVALA. WILL CONTINUE WITH PLAN OF CARE
--- NOTE | 2020-02-06 10:05 | NUR ---
CONSENT FOR BLOOD TRANSFUSION RECEIVED FROM JASPREET CARTY,S DAUGHTER. VERIFIED AND SIGNED BY TWO NURSES. CONSENT PLACED IN CHART. WILL CONTINUE WITH PLAN OF CARE
--- NOTE | 2020-02-06 11:35 | NUR ---
PT PULLED OUT IV ACCESS, PRESSURE APPLIED, SECURE WITH GAUZE AND TAPE. NO SIGN OF BLEEDING OR INFILTRATION NOTED. WILL CONTINUE TO MONITOR
--- NOTE | 2020-02-06 11:45 | NUR ---
INSERTED IV IN RIGHT HAND G#20, INTACT, PATENT AND FLUSHING WELL. PT TOLERATED WELL WITH GOOD BLOOD RETURN NOTED. WILL CONTINUE TO MONITOR
--- NOTE | 2020-02-06 12:59 | NUR ---
PT PRE-TRANSFUSION VS, BP 141/53, HR 76, RR 19, T 97.7, SPO2 91. BLOOD VERIFIED BY TWO NURSES. WILL CONTINUE TO MONITOR
--- NOTE | 2020-02-06 13:04 | NUR ---
PT STARTED ON BLOOD TRANSFUSION AT THIS TIME. PT EDUCATION PROVIDED TO REPORT ANY ADVERSE REACTION OF TRANSFUSION-CHILLS, FEVER, BACK PAIN, HIVES, ITCHES. PT VERBALIZED UNDERSTANDING. WILL CONTINUE TO MONITOR
--- NOTE | 2020-02-06 13:16 | NUR ---
BLOOD TRANSFUSION ONGOING. VS AT THIS TIME, BP 116/55, HR 88, RR 18, T 98.0, SPO2 95%. NO C/O OF ANY ADVERSE REACTION OF TRANSFUSION, NO C/O OF (CHILLS, FEVER, BACK PAIN, HIVES, ITCHES). WILL CONTINUE TO MONITOR
--- NOTE | 2020-02-06 13:46 | NUR ---
PT ONGOING BLOOD TRANSFUSION AT THIS TIME. VS, BP 121/64, HR 75, RR 18, T 97.9, SPO2 96%. NO C/O OF ANY ADVERSE REACTION OF TRANSFUSION, NO C/O OF (CHILLS, FEVER, BACK PAIN, HIVES, ITCHES). WILL CONTINUE TO MONITOR
--- NOTE | 2020-02-06 14:46 | NUR ---
PT ONGOING BLOOD TRANSFUSION AT THIS TIME. VS, BP 128/61, HR 78, RR 20, T 97.8, SPO2 96%. NO C/O OF ANY ADVERSE REACTION OF TRANSFUSION, NO C/O OF (CHILLS, FEVER, BACK PAIN, HIVES, ITCHES). WILL CONTINUE TO MONITOR
--- NOTE | 2020-02-06 16:00 | NUR ---
1 UNIT PRBC OF BLOOD TRANSFUSION COMPLETED AT THIS TIME. VS, BP 126/72, HR 74, RR 20, T 97.6, SPO2 96%. NO C/O OF ANY ADVERSE REACTION OF TRANSFUSION, NO C/O OF (CHILLS, FEVER, BACK PAIN, HIVES, ITCHES). WILL CONTINUE TO MONITOR
[2020-02-06 19:14] LABS: HEMOGLOBIN 9.7 g/dL (13.5-17.5)
--- NOTE | 2020-02-06 19:15 | NUR ---
PIANO STRINGER OPENING NOTES: RECEIVED PATIENT IN BED, AWAKE. A/O X1. NO S/S OF DISTRESS NOTED. NO COMPLAIN OF PAIN. CALL LIGHT WITHIN REACH. BED ALARM ON. BED IN LOWEST AND LOCKED POSITION. HOB ELEVATED AT 30 DEGREES AT ALL TIMES. LEFT UPPER ARM AV SHUNT DRESSING IS INTACT, NO BLEEDING NOTED. WITH THE SIGN ON THE HEAD OF THE BED PLACED FOR NO BLOOD PRESSURE TAKING ON THE LEFT ARM, AND NO BLOOD DRAW ON THE LEFT ARM. PATIENT IS INCONTINENT, VOIDED SMALL AMOUNT, YELLOWISH COLOR.
--- NOTE | 2020-02-06 19:20 | NUR ---
ENDORSED TP INTERVENTIONAL SALE CONSULTANT NURSE FOR MARIANELA
[2020-02-06] MEDS: CEFEPIME 1 GM in IV D5W 50 ML IV SCH (21:26)
[2020-02-07] VITALS: BP 148/71
[2020-02-07] MEDS: ACETAMINOPHEN 325 MG TABLET PO PRN (03:54)
[2020-02-07 04:00] VITALS: BP 138/63
[2020-02-07 06:11] LABS: BASOPHILS % (AUTO) 0.1 % (0.0-2.0); EOSINOPHILS % (AUTO) 0.2 % (0.0-6.0); HEMATOCRIT 26 % (39-51); HEMOGLOBIN 9.2 g/dL (13.5-17.5); LYMPHOCYTES # (AUTO) 0.5 /CMM (0.8-4.8); LYMPHOCYTES % (AUTO) 3.1 % (20.0-44.0); MEAN CORPUSCULAR HGB CONC 36 g/dl (31.0-36.0); MEAN CORPUSCULAR VOLUME 95 fL (80-96); MONOCYTES # (AUTO) 0.2 /CMM (0.1-1.30); MONOCYTES % (AUTO) 1.1 % (2.0-12.0); NEUTROPHILS % (AUTO) 95.5 % (43.0-81.0); PLATELET COUNT (AUTO) 126 /CMM (150-450); RED BLOOD CELL COUNT(AUTO) 2.72 MIL/uL (4.5-6.0); WHITE BLOOD COUNT (AUTO) 15.7 K/uL (4.3-11.0)
[2020-02-07] MEDS: BLOOD SUGAR DIAGNOSTIC 1 EACH STRIP IN SCH ×3 (06:31→17:20)
[2020-02-07] MEDS: INSULIN REGULAR, HUMAN 100 UNIT/ML 3 ML VIAL SQ PRN ×3 (06:31→17:26)
[2020-02-07 06:48] LABS: CALCIUM, SERUM 8.4 mg/dL (8.5-10.1); CREATININE 6.5 mg/dL (0.6-1.3); MAGNESIUM 2.5 mg/dL (1.8-2.4); PHOSPHORUS 7.4 mg/dL (2.5-4.9); POTASSIUM 4.9 mmol/L (3.5-5.1)
--- NOTE | 2020-02-07 07:30 | NUR ---
Patient oriented x1, disoriented . IV line flushing well . Gait is unstable and bed alarm activated. Fall precautions observed, call light within reach. On Tele monitor SR at this moment. On oxygen 4l at this time , saturation 95%. Will continue to monitor
[2020-02-07 08:00] VITALS: BP 126/60
[2020-02-07] MEDS: VIT B CMPLX 3/FA/VIT C/BIOTIN 1 TAB TABLET PO SCH (09:44)
[2020-02-07] MEDS: METOPROLOL SUCCINATE 25 MG TAB.SR.24H PO SCH (09:45)
[2020-02-07] MEDS: ESCITALOPRAM OXALATE (10 MG) 10 MG TABLET PO SCH (09:45)
[2020-02-07] MEDS: DEXAMETHASONE 4 MG TABLET PO SCH (09:45)
[2020-02-07] MEDS: AMLODIPINE BESYLATE 10 MG TABLET PO SCH (09:45)
[2020-02-07] MEDS: SEVELAMER CARBONATE 800 MG TABLET PO SCH ×3 (09:46→17:21)
[2020-02-07 12:00] VITALS: BP 153/64
--- NOTE | 2020-02-07 14:30 | NUR ---
Increase oxygen flow rate back to 4L , to keep saturation 93-94% .
--- NOTE | 2020-02-07 18:43 | NUR ---
Patient resting in bed, remains confused and oriented only self. Gait is unsteady , patient on bed rest. IV line intact and patent. AV shunt to the left upper arm ; dressing clean and intact. Patient remains on 4L via nasal canula saturation as low as 91-92%. All needs attended , safety measures implemented and call light within reach. Will endorse to next shift for MARIANELA
--- NOTE | 2020-02-07 19:31 | NUR ---
FIRE ALARM MECHANIC OPENING NOTES PATIENT AWAKE IN BED. A/OX1, CONFUSED. PRIMARY LANGUAGE [place]OREAN. ON 4L NC; NO S/S OF ACUTE RESPIRATORY DISTRESS; BREATHING IS EVEN AND UNLABORED. NO S/S OF PAIN NOTED. TELE MONITOR READING NSR, HEART RATE 83. IV PRESENT ON RIGHT WRIST, SIZE 20, INTACT & PATENT, HEP LOCKED. CONTACT/DROPLET PRECAUTIONS IN PLACE FOR POSITIVE COVID 19. SAFETY MEASURES IN PLACE AND PATIENT'S NEEDS MET. BED LOCKED, ALARM ON, HOB ELEVATED, SIDE RAILS X3, CALL LIGHT WITHIN REACH. WILL CONTINUE TO MONITOR.
[2020-02-07] MEDS: CEFEPIME 1 GM in IV D5W 50 ML IV SCH (20:29)
[2020-02-07 20:47] VITALS: BP 151/60
[2020-02-08] VITALS (8 sets, daily range): BP systolic 129–152; BP diastolic 55–80
[2020-02-08] MEDS: BLOOD SUGAR DIAGNOSTIC 1 EACH STRIP IN SCH ×4 (00:34→17:20)
[2020-02-08] MEDS: INSULIN REGULAR, HUMAN 100 UNIT/ML 3 ML VIAL SQ PRN ×4 (00:44→17:43)
--- NOTE | 2020-02-08 06:38 | NUR ---
HEADER SET UP OPERATOR CLOSING NOTES PATIENT SLEEPING, AWAKENS TO TOUCH. A/OX1, CONFUSED. ON 4L NC; NO S/S OF ACUTE RESPIRATORY DISTRESS; BREATHING IS EVEN AND UNLABORED. NO S/S OF PAIN NOTED. TELE MONITOR READING NSR, HEART RATE 84. IV PRESENT ON RIGHT FA, SIZE 20, INTACT & PATENT, HEP LOCKED. SAFETY MEASURES IN PLACE AND PATIENT'S NEEDS MET. BED LOCKED, ALARM ON, HOB ELEVATED, SIDE RAILS X3, CALL LIGHT WITHIN REACH. WILL ENDORSE TO DAY SHIFT RN PLAN OF CARE.
[2020-02-08 06:41] LABS: BASOPHILS % (AUTO) 0.1 % (0.0-2.0); EOSINOPHILS % (AUTO) 0.6 % (0.0-6.0); HEMATOCRIT 23 % (39-51); HEMOGLOBIN 8.5 g/dL (13.5-17.5); LYMPHOCYTES # (AUTO) 0.5 /CMM (0.8-4.8); LYMPHOCYTES % (AUTO) 2.9 % (20.0-44.0); MEAN CORPUSCULAR HGB CONC 37 g/dl (31.0-36.0); MEAN CORPUSCULAR VOLUME 96 fL (80-96); MONOCYTES # (AUTO) 0.1 /CMM (0.1-1.30); MONOCYTES % (AUTO) 0.9 % (2.0-12.0); NEUTROPHILS # (AUTO) 15.7 /CMM (1.8-8.9); NEUTROPHILS % (AUTO) 95.5 % (43.0-81.0); PLATELET COUNT (AUTO) 121 /CMM (150-450); RED BLOOD CELL COUNT(AUTO) 2.43 MIL/uL (4.5-6.0); WHITE BLOOD COUNT (AUTO) 16.4 K/uL (4.3-11.0)
[2020-02-08 07:18] LABS: CALCIUM, SERUM 8.5 mg/dL (8.5-10.1); MAGNESIUM 2.8 mg/dL (1.8-2.4); PHOSPHORUS 7.5 mg/dL (2.5-4.9); POTASSIUM 5.2 mmol/L (3.5-5.1)
--- NOTE | 2020-02-08 07:43 | NUR ---
MOLDING ROOM SUPERVISOR OPEN NOTES PATIENT IS A/O X 1. WITH NO SIGNS OF DISTRESS ON 4L OF NASAL CANNULA. ON TELE MONITOR SR 80'S. IV R FA #20G SL AND L UA AV SHUNT. NO COMPLAIN OF PAIN AT THIS MOMENT. SAFETY MEASURES ARE BEING APPLIED, BED IS IN LOW AND LOCKED POSITION, SIDE RAILS UP X 2, CALL LIGHT WITHIN REACH. WILL CONTINUE TO MONITOR.
[2020-02-08 07:54] LABS: CREATININE 7.7 mg/dL (0.6-1.3)
[2020-02-08] MEDS: AMLODIPINE BESYLATE 10 MG TABLET PO SCH (09:00)
[2020-02-08] MEDS: METOPROLOL SUCCINATE 25 MG TAB.SR.24H PO SCH (09:00)
--- NOTE | 2020-02-08 09:00 | NUR ---
HELD BP MEDS, PATIENT WILL BE HAVING HEMODIALYSIS. WILL CONTINUE TO MONITOR.
[2020-02-08] MEDS: ESCITALOPRAM OXALATE (10 MG) 10 MG TABLET PO SCH (09:57)
[2020-02-08] MEDS: SEVELAMER CARBONATE 800 MG TABLET PO SCH ×3 (09:57→17:23)
[2020-02-08] MEDS: VIT B CMPLX 3/FA/VIT C/BIOTIN 1 TAB TABLET PO SCH (09:57)
[2020-02-08] MEDS: DEXAMETHASONE 4 MG TABLET PO SCH (09:57)
[2020-02-08] MEDS: NEPRO VAN 237 ML CAN PO PRN (12:29)
--- NOTE | 2020-02-08 16:26 | NUR ---
HEMODIALYSES DONE OUTPUT 1.5 LITTERS BP 118/52 P 90 TEMP 98.2F RR 18. WILL CONTINUE TO MONITOR.
[2020-02-08] MEDS: VANCOMYCIN 500 MG in IV D5W 100 ML IV PRN (17:50)
--- NOTE | 2020-02-08 18:49 | NUR ---
ADDICTION THERAPIST CLOSED NOTES PATIENT IS A/O X 1. WITH NO SIGNS OF DISTRESS ON 4L OF NASAL CANNULA SPO2 94%. ON TELE MONITOR ST 101. IV R HAND #20G SL AND L UA AV SHUNT. HD DONE TODAY 1.5 L OUTPUT. NO COMPLAIN OF PAIN AT THIS MOMENT. PATIENT KEPT CLEAN AND DRY. ALL NEEDS, CARE, TREATMENT AND MEDICATIONS ADMINISTERED ANTICIPATED PER ORDER. SAFETY MEASURES ARE APPLIED BED IS IN LOW AND LOCKED POSITION, SIDE RAILS UP X 2. CALL LIGHT WITHIN REACH, WILL ENDORSE TO THE NEXT MAIL ROOM CLERK.
--- NOTE | 2020-02-08 19:05 | NUR ---
DIETARY ASSISTANT OPENING NOTES RECEIVED PATIENT IN BED AWAKE ALERT AND ORIENTED X1 , ON 4L VIA NC TOLERATING WELL.RESPIRATIONS EVEN AND UNLABORED WITH EQUAL RISE AND FALL OF CHEST. DENIES ANY PAIN OR DISCOMFORT AT THIS TIME.ON CARDIAC TELE MONITOR ST 104, NO DISTRESS PRESENT, RIGHT FA IV SITE INTACT AND PATENT, NO REDNESS, NO INFILTRATION. LEFT UPPER ARM AV SHUNT BRUIT PRESENT. ORIENTED TO STAFF AND CALL LIGHT AND KEPT WITHIN REACH, LOW BED AND LOCKED, BED ALARM IN PLACE. ALL NEEDS ATTENDED WILL CONTINUE TO MONITOR AND ATTEND TO NEEDS.
[2020-02-08] MEDS: CEFEPIME 1 GM in IV D5W 50 ML IV SCH (20:04)
[2020-02-09] VITALS (10 sets, daily range): BP systolic 121–148; BP diastolic 58–86
[2020-02-09] MEDS: BLOOD SUGAR DIAGNOSTIC 1 EACH STRIP IN SCH ×4 (00:12→17:13)
[2020-02-09] MEDS: INSULIN REGULAR, HUMAN 100 UNIT/ML 3 ML VIAL SQ PRN ×5 (00:14→23:48)
[2020-02-09] MEDS: ACETAMINOPHEN 325 MG TABLET PO PRN (05:03)
--- NOTE | 2020-02-09 05:03 | NUR ---
salesperson men's furnishings notes noted with mild temp of 99.8 orally. cooling measures done tylenol prn given for mild fever. will continue to monitor.
--- NOTE | 2020-02-09 06:54 | NUR ---
AIRCRAFT ENGINE MECHANIC SUPERVISOR CLOSING NOTES PATIENT IN BED AWAKE ALERT AND ORIENTED X1 , ON 4L VIA NC TOLERATING WELL.RESPIRATIONS EVEN AND UNLABORED WITH EQUAL RISE AND FALL OF CHEST. DENIES ANY PAIN OR DISCOMFORT AT THIS TIME.ON CARDIAC TELE MONITOR SR 90, NO DISTRESS PRESENT, RIGHT FA IV SITE INTACT AND PATENT, NO REDNESS, NO INFILTRATION. LEFT UPPER ARM AV SHUNT BRUIT/THRILL PRESENT. CALL LIGHT KEPT WITHIN REACH, LOW BED AND LOCKED, BED ALARM IN PLACE. ALL NEEDS ATTENDED WILL CONTINUE TO MONITOR AND ATTEND TO NEEDS. UNABLE TO COLLECT STOOL NO BM.
--- NOTE | 2020-02-09 07:06 | NUR ---
SLAT TWISTER OPENING NOTES RECEIVED PT RESTING IN BED AT THIS TIME. AOX1-2. SWAZI SPEAKING. NO SOB NOTED, NO S/S OF ANY ACUTE DISTRESS NOTED. NO C/O PAIN AT THIS TIME. RESPIRATIONS ARE EVEN AND UNLABORED WITH EQUAL RISE AND FALL IN CHEST. PT STABLE ON RA. IV ACCESS NOTED IN RFA G#20, INTACT, PATENT AND FLUSHING WELL. PT ON EXTERNAL TELE INSOLE AND HEEL STIFFENER READING SR IN THE 90s. SAFETY PRECAUTION IN PLACE AND MAINTAINED AT ALL TIMES. BED IN LOWEST LOCKED POSITION, HOB ELEVATED, SIDE RAILS UP X 2, CALL LIGHT WITHIN REACH. WILL CONTINUE TO MONITOR
[2020-02-09] MEDS: SEVELAMER CARBONATE 800 MG TABLET PO SCH ×3 (07:59→17:07)
[2020-02-09 08:05] LABS: CALCIUM, SERUM 8.3 mg/dL (8.5-10.1); CREATININE 6.6 mg/dL (0.6-1.3); MAGNESIUM 2.7 mg/dL (1.8-2.4); PHOSPHORUS 7.7 mg/dL (2.5-4.9); POTASSIUM 5.1 mmol/L (3.5-5.1)
--- NOTE | 2020-02-09 08:33 | NUR ---
WOUND CARE CONSULT: REVIEWED CHART, NURSING DOCUMENTATION AND PHOTOS WHICH INDICATE DISCOLORED AREAS TO LEGS AND TO RT INNER BUTTOCK. CURRENT KELLEY SCORE IS 15. RECOMMENDATIONS MADE FOR SKIN PROTECTION. DISCUSSED WITH NURSING STAFF. MD IN AGREEMENT WITH PLAN OF CARE.
[2020-02-09] MEDS: DEXAMETHASONE 4 MG TABLET PO SCH (08:42)
[2020-02-09] MEDS: AMLODIPINE BESYLATE 10 MG TABLET PO SCH (08:42)
[2020-02-09] MEDS: ESCITALOPRAM OXALATE (10 MG) 10 MG TABLET PO SCH (08:42)
[2020-02-09] MEDS: VIT B CMPLX 3/FA/VIT C/BIOTIN 1 TAB TABLET PO SCH (08:42)
[2020-02-09] MEDS: METOPROLOL SUCCINATE 25 MG TAB.SR.24H PO SCH (08:42)
[2020-02-09 08:53] LABS: BASOPHILS % (AUTO) 0.2 % (0.0-2.0); EOSINOPHILS % (AUTO) 0.8 % (0.0-6.0); HEMATOCRIT 22 % (39-51); HEMOGLOBIN 7.3 g/dL (13.5-17.5); LYMPHOCYTES # (AUTO) 0.5 /CMM (0.8-4.8); LYMPHOCYTES % (AUTO) 2.9 % (20.0-44.0); MEAN CORPUSCULAR HGB CONC 33 g/dl (31.0-36.0); MEAN CORPUSCULAR VOLUME 92 fL (80-96); MONOCYTES # (AUTO) 0.2 /CMM (0.1-1.30); MONOCYTES % (AUTO) 0.9 % (2.0-12.0); NEUTROPHILS # (AUTO) 15.5 /CMM (1.8-8.9); NEUTROPHILS % (AUTO) 95.2 % (43.0-81.0); PLATELET COUNT (AUTO) 91 /CMM (150-450); RED BLOOD CELL COUNT(AUTO) 2.45 MIL/uL (4.5-6.0); WHITE BLOOD COUNT (AUTO) 16.3 K/uL (4.3-11.0)
--- NOTE | 2020-02-09 09:00 | NUR ---
PER DR GUZMAN, TITRATE OXYGEN TO 2LPM VIA NC. ORDERS CARRIED OUT. WILL CONTINUE TO MONITOR
--- NOTE | 2020-02-09 10:17 | NUR ---
CARLOZ, PT's DAUGHTER ([phone]) CALLED, UPDATED ON PT'S CONDITION AND SPOKE WITH PT. WILL CONTINUE TO MONITOR
[2020-02-09] MEDS ORDERED: DOCUSATE SODIUM 100 MG CAPSULE PO PRN ×2 (13:30)
--- NOTE | 2020-02-09 15:02 | NUR ---
PT STARTED ON BLOOD TRANSFUSION AT THIS TIME. PT PRE-TRANSFUSION VS, BP 126/70, HR 86, RR 18, T 97.9, SPO2 98. BLOOD VERIFIED BY TWO NURSES. NO LEAKAGE, NO CLOTS NOTED. PT EDUCATION PROVIDED TO REPORT ANY ADVERSE REACTION OF TRANSFUSION-CHILLS, FEVER, BACK PAIN, HIVES, ITCHES. PT VERBALIZED UNDERSTANDING. WILL CONTINUE TO MONITOR
--- NOTE | 2020-02-09 15:22 | NUR ---
PT ONGOING BLOOD TRANSFUSION AT THIS TIME. VS, BP 135/73, HR 68, RR 18, T 97.8, SPO2 98%. NO C/O OF ANY ADVERSE REACTION OF TRANSFUSION, NO C/O OF (CHILLS, FEVER, BACK PAIN, HIVES, ITCHES). WILL CONTINUE TO MONITOR
--- NOTE | 2020-02-09 15:52 | NUR ---
PT ONGOING BLOOD TRANSFUSION AT THIS TIME. VS, BP 138/70, HR 70, RR 20, T 98.2, SPO2 96%. NO C/O OF ANY ADVERSE REACTION OF TRANSFUSION, NO C/O OF (CHILLS, FEVER, BACK PAIN, HIVES, ITCHES). WILL CONTINUE TO MONITOR
--- NOTE | 2020-02-09 16:52 | NUR ---
PT ONGOING BLOOD TRANSFUSION AT THIS TIME. VS, BP 134/74, HR 74, RR 18, T 98.0, SPO2 94%. NO C/O OF ANY ADVERSE REACTION OF TRANSFUSION, NO C/O OF (CHILLS, FEVER, BACK PAIN, HIVES, ITCHES). WILL CONTINUE TO MONITOR
--- NOTE | 2020-02-09 17:32 | NUR ---
BLOOD TRANSFUSION COMPLETED AT THIS TIME. VS, BP 125/68, HR 85, RR 18, T 98.0, SPO2 97%. NO C/O OF ANY ADVERSE REACTION OF TRANSFUSION, NO C/O OF (CHILLS, FEVER, BACK PAIN, HIVES, ITCHES). WILL CONTINUE TO MONITOR
--- NOTE | 2020-02-09 19:06 | NUR ---
RN CLOSING NOTES PT AWAKE IN BED AT THIS. PT REMAINED STABLE THROUGHOUT SHIFT. PT KEPT CLEAN AND DRY. ALL CARE, NEEDS, MEDICATION AND TREATMENT ADMINISTERED ANTICIPATED PER ORDER. SAFETY PRECAUTION IN PLACE AND MAINTAINED AT ALL TIMES. BED IN LOWEST LOCKED POSITION, HOB ELEVATED, SIDE RAILS UP X 2, CALL LIGHT WITHIN REACH. WILL ENDORSE TO MECHANICAL STRIPER NURSE FOR MARIANELA
--- NOTE | 2020-02-09 19:30 | NUR ---
RIGHT OF WAY MAINTENANCE SUPERVISOR OPEN NOTES PT IS LAYING IN BED WATCHING TV. A/O X1-2. ON2L NASAL CANULA, NO SOB/ ACUTE RESPIRATORY DISTRESS NOTED. IV IN R FA #20G IS PATENT AND INTACT. BED IS IN LOWEST LOCKED POSITION WITH SIDE RAILS UP X3, SEMI FOWLERS. CALL LIGHT IS WITHIN REACH. WILL CONTINUE TO MONITOR.
[2020-02-09] MEDS: CEFEPIME 1 GM in IV D5W 50 ML IV SCH (20:16)
[2020-02-09 21:56] LABS: HEMOGLOBIN 8.5 g/dL (13.5-17.5)
--- NOTE | 2020-02-09 22:17 | NUR ---
FURNITURE FINISHER NOTES RECEIVED CALL FROM LAB STATING THE PT IS STILL COVID POSITIVE.
[2020-02-10] VITALS (7 sets, daily range): BP systolic 109–144; BP diastolic 49–89
[2020-02-10] MEDS: BLOOD SUGAR DIAGNOSTIC 1 EACH STRIP IN SCH ×5 (00:02→23:56)
[2020-02-10] MEDS: INSULIN REGULAR, HUMAN 100 UNIT/ML 3 ML VIAL SQ PRN ×4 (05:57→23:58)
--- NOTE | 2020-02-10 06:37 | NUR ---
GAS COMPRESSOR OPERATOR CLOSE NOTES PT IS LAYING IN BED. A/O X1-2, SERBIAN SPEAKING. ON 2L NASAL CANULA, NO SOB/ ACUTE RESPIRATORY DISTRESS NOTED. TELE MONITOR READING SR, 91. IV IN R FOREARM #20G IS PATENT AND INTACT. PT DENIES ANY PAIN AT THE MOMENT. ALL ACCUCHECKS DONE. ALL DUE ANTIBIOTICS ADMINISTERED. BED IS IN LOWEST LOCKED POSITION WITH SIDE RAILS UP X3, SEMI FOWLERS. BED ALARM ON. CALL LIGHT IS WITHIN REACH. WILL ENDORSE TO AM NURSE.
[2020-02-10 06:57] LABS: BASOPHILS % (AUTO) 0.2 % (0.0-2.0); EOSINOPHILS % (AUTO) 1.3 % (0.0-6.0); HEMATOCRIT 25 % (39-51); HEMOGLOBIN 8.8 g/dL (13.5-17.5); LYMPHOCYTES # (AUTO) 0.5 /CMM (0.8-4.8); LYMPHOCYTES % (AUTO) 3.3 % (20.0-44.0); MEAN CORPUSCULAR HGB CONC 35 g/dl (31.0-36.0); MEAN CORPUSCULAR VOLUME 97 fL (80-96); MONOCYTES # (AUTO) 0.1 /CMM (0.1-1.30); MONOCYTES % (AUTO) 0.6 % (2.0-12.0); NEUTROPHILS # (AUTO) 14.3 /CMM (1.8-8.9); NEUTROPHILS % (AUTO) 94.6 % (43.0-81.0); PLATELET COUNT (AUTO) 113 /CMM (150-450); RED BLOOD CELL COUNT(AUTO) 2.59 MIL/uL (4.5-6.0); WHITE BLOOD COUNT (AUTO) 15.1 K/uL (4.3-11.0)
[2020-02-10 07:09] LABS: MAGNESIUM 2.6 mg/dL (1.8-2.4); POTASSIUM 5.6 mmol/L (3.5-5.1)
--- NOTE | 2020-02-10 07:30 | NUR ---
NURSE LIAISON NOTES PT IN BED, AWAKE, ALERT AND ORIENTED, DENIES PAIN, RESPIRATIONS NORMAL AND NOT LABORED, ISOLATION PRECAUTIONS OBSERVED, CALL LIGHT WITHIN REACH, NEEDS ATTENDED.
[2020-02-10 07:35] LABS: CREATININE 7.8 mg/dL (0.6-1.3)
[2020-02-10] MEDS: SEVELAMER CARBONATE 800 MG TABLET PO SCH ×3 (08:39→17:11)
[2020-02-10] MEDS: ESCITALOPRAM OXALATE (10 MG) 10 MG TABLET PO SCH (08:39)
[2020-02-10] MEDS: VIT B CMPLX 3/FA/VIT C/BIOTIN 1 TAB TABLET PO SCH (08:39)
--- NOTE | 2020-02-10 09:09 | NUR ---
FIBER OPTIC SPLICER NOTES PT HAVING DIALYSIS AT THIS TIME, BP MEDS HELD FOR NOW.
[2020-02-10] MEDS: METOPROLOL SUCCINATE 25 MG TAB.SR.24H PO SCH (12:40)
[2020-02-10] MEDS: AMLODIPINE BESYLATE 10 MG TABLET PO SCH (12:40)
--- NOTE | 2020-02-10 13:24 | NUR ---
VAMP STRAP IRONER NOTES PT IN BED, RESTING, NO COMPLAINT OF PAIN, NOT IN DISTRESS, COMPLETED DIALYSIS, TOLERATED WELL, SEEN BY DR. VILLATORO, CALL LIGHT WITHIN REACH, KEPT SPEECH/LANGUAGE THERAPIST BED, NEEDS ATTENDED.
--- NOTE | 2020-02-10 14:54 | NUR ---
ANSWERING SERVICE TELEPHONE OPERATOR NOTES NOTED PT TRYING TO GET OUT OF BED, CONFUSED, UNABLE TO FOLLOW DIRECTIONS, TAKING OFF O2 TUBING, RISK FOR FALL, DR. VILLATORO INFORMED, ORDERED BILATERAL SOFT WRIST RESTRAINTS, WILL CONTINUE TO MONITOR.
--- NOTE | 2020-02-10 18:16 | NUR ---
KENNEL MANAGER NOTES PT IN BED, RESTING, ALERT TO SELF, WITH CONFUSION, SAFETY PRECAUTIONS OBSERVED, NO BLEEDING NOTED TO AV SHUNT SITE AT LEFT UPPER ARM, PM MEDS GIVEN, ASSISTED WITH MEALS, PM CARE PROVIDED, ALL NEEDS ATTENDED.
--- NOTE | 2020-02-10 19:50 | NUR ---
ADULT CROSSING GUARD OPENING NOTES RECEIVED PATIENT IN BED, ALERT AND ORIENTED X 2. DANISH SPEAKING VERBALLY RESPONSIVE AND ABLE TO FOLLOW SIMPLE DIRECTIONS. BREATHING REGULAR AND UNLABORED ON OXYGEN AT 2L/MIN VIA NASAL CANNULA. RIGHT FOREARM G20 IV LINE INTACT AND PATENT, FLUSHING WELL WITH NO BLEEDING OR S/S OF INFILTRATION NOTED. LEFT UPPER ARM AV SHUNT POSITIVE FOR BRUIT AND THRILL, NO ACTIVE BLEEDING SEEN. ON CARDIAC MONITORING WITH NSR AT 82bpm. DENIES SUICIDAL IDEATION OR PAIN/DISCOMFORT AT THIS TIME. BED LOW AND LOCKED ON SEMI FOWLERS POSITION. CALL LIGHT IN REACH. WILL CONTINUE TO MONITOR.
--- NOTE | 2020-02-10 21:30 | NUR ---
ART GALLERY DIRECTOR NOTES NOTED WITH OPEN WOUND ON RIGHT BUTTOCK, PHOTO TAKEN ATTACHED TO CHART. CLEANSED WITH SOAP AND WATER, PAT DRY AND COVER WITH MEPILEX. WOUND CARE CONSULT ORDERED. REPOSITIONED ON HIS LEFT SIDE. WILL CONTINUE TO MONITOR.
[2020-02-11] VITALS (12 sets, daily range): BP systolic 124–170; BP diastolic 52–86
[2020-02-11] MEDS: BLOOD SUGAR DIAGNOSTIC 1 EACH STRIP IN SCH ×4 (05:46→23:44)
[2020-02-11] MEDS: INSULIN REGULAR, HUMAN 100 UNIT/ML 3 ML VIAL SQ PRN ×4 (05:49→23:44)
--- NOTE | 2020-02-11 06:40 | NUR ---
LOADING SUPERVISOR CLOSING NOTES PATIENT IN BED, ALERT AND ORIENTED X 2. AFEBRILE WITH NO S/S OF DISTRESS OBSERVED. RIGHT FOREARM G20 IV LINE PATENT AND FLUSHING. LEFT UPPER ARM AV SHUNT POSITIVE FOR BRUIT AND THRILL, NO ACTIVE BLEEDING SEEN. MAINTAINED ON CARDIAC MONITORING WITH NSR AT 75bpm. NO S/S OF PAIN/DISCOMFORT NOTED AT THIS TIME. BED LOW AND LOCKED ON SEMI FOWLERS POSITION. CALL LIGHT IN REACH. WILL ENDORSE TO MORNING SHIFT FOR MARIANELA.
[2020-02-11 07:07] LABS: CREATININE 7.2 mg/dL (0.6-1.3); MAGNESIUM 2.6 mg/dL (1.8-2.4); POTASSIUM 5.6 mmol/L (3.5-5.1)
[2020-02-11 07:16] LABS: PHOSPHORUS 8.2 mg/dL (2.5-4.9)
--- NOTE | 2020-02-11 07:30 | NUR ---
TELE/RN OPENING NOTE Patient resting in bed, A&O x 1-2, paraguayan speaking. Denies any pain/discomfort at this time. Breathing even and non-labored on 2L oxygen via NC. No respiratory or cardiac distress noted. On tele monitor, reading SR 100. IV access noted on R FA #20 gauge, patent and intact, and flushing well. YOVANA AV shunt noted. Sensation from all peripheral extremities intact. Right wrist restraint noted, circulation and sensation intact. Bed locked to its lowest position, side rails x 2 up, call light in hand. Will continue with current medical management.
[2020-02-11 07:53] LABS: BASOPHILS % (AUTO) 0.3 % (0.0-2.0); LYMPHOCYTES # (AUTO) 0.6 /CMM (0.8-4.8); LYMPHOCYTES % (AUTO) 4.6 % (20.0-44.0); MEAN CORPUSCULAR HGB CONC 34 g/dl (31.0-36.0); MEAN CORPUSCULAR VOLUME 98 fL (80-96); MONOCYTES # (AUTO) 0.2 /CMM (0.1-1.30); MONOCYTES % (AUTO) 1.3 % (2.0-12.0); NEUTROPHILS # (AUTO) 11.4 /CMM (1.8-8.9); NEUTROPHILS % (AUTO) 91.8 % (43.0-81.0); PLATELET COUNT (AUTO) 95 /CMM (150-450); RED BLOOD CELL COUNT(AUTO) 2.03 MIL/uL (4.5-6.0); WHITE BLOOD COUNT (AUTO) 12.4 K/uL (4.3-11.0)
[2020-02-11 08:02] LABS: HEMATOCRIT 20 % (39-51); HEMOGLOBIN 6.8 g/dL (13.5-17.5)
[2020-02-11] MEDS: VIT B CMPLX 3/FA/VIT C/BIOTIN 1 TAB TABLET PO SCH (08:28)
[2020-02-11] MEDS: ESCITALOPRAM OXALATE (10 MG) 10 MG TABLET PO SCH (08:28)
[2020-02-11] MEDS: SEVELAMER CARBONATE 800 MG TABLET PO SCH ×3 (08:28→17:13)
[2020-02-11] MEDS: METOPROLOL SUCCINATE 25 MG TAB.SR.24H PO SCH (08:29)
[2020-02-11] MEDS: AMLODIPINE BESYLATE 10 MG TABLET PO SCH (08:29)
--- NOTE | 2020-02-11 09:27 | NUR ---
WOUND CARE CONSULT: REVIEWED CHART, NURSING DOCUMENTATION AND PHOTOS WHICH INDICATE INCONTINENCE ASSOCIATED SKIN DAMAGE TO RT BUTTOCK. RECOMMENDATIONS MADE FOR SKIN CARE AND PROTECTION. DISCUSSED WITH NURSING STAFF. MD IN AGREEMENT WITH PLAN OF CARE.
[2020-02-11 10:14] LABS: EOSINOPHILS % (MANUAL) 1 % (0-4); LYMPHOCYTES % (MANUAL) 5 % (16-48); MONOCYTES % (MANUAL) 3 % (0-11.0); NEUTROPHILS % (MANUAL) 91 (42-76)
--- NOTE | 2020-02-11 11:00 | NUR ---
TELE/RN NOTE Dr. Hopper at bedside, ordered kayexalate 30 gm for potassium of 5.3. Ordered carried out. Will continue to monitor.
[2020-02-11] MEDS ORDERED: SODIUM POLYSTYRENE SULFONATE 15 G/60 ML BOTTLE PO ONE (11:30)
--- NOTE | 2020-02-11 16:05 | NUR ---
TELE/RN NOTE Started blood transfusion of 1 unit PRBC to patient. Pre-vital signs stable, no acute distress or adverse effects noted. Will continue to monitor.
--- NOTE | 2020-02-11 16:20 | NUR ---
TELE/RN NOTE Patient tolerating blood transfusion well, no s/s of adverse reactions noted. VSS, afebrile, no SOB noted. Increased infusion to 100 ml/hr. Will continue to monitor closely.
--- NOTE | 2020-02-11 18:35 | NUR ---
TELE/RN NOTE Blood transfusion finished, patient remained stable. No adverse reactions noted. VSS, afebrile, no SOB noted. Will continue to monitor.
--- NOTE | 2020-02-11 18:45 | NUR ---
TELE/RN NOTE Collected fecal occult, sent to lab.
--- NOTE | 2020-02-11 19:30 | NUR ---
TELE/RN CLOSING NOTE Patient in bed, A&O x 1-2. All needs met and attended to. Denies any pain/discomfort at this time. Breathing even and non-labored on 2L oxygen via NC. No respiratory or cardiac distress noted. On tele monitor, reading SR 90s. IV access noted on R FA #20 gauge, patent and intact, and flushing well. YOVANA AV shunt noted. Sensation from all peripheral extremities intact. Fall precautions maintained. Will endorse to night supervisor nurse.
[2020-02-11 19:35] LABS: OCCULT BLOOD STOOL POSITIVE (NEGATIVE)
--- NOTE | 2020-02-11 19:40 | NUR ---
OFFICE MANAGER RECEPTIONIST NOTES PATIENT IN BED, AWAKE, ALERT AND ORIENTED X 1-2. BREATHING EVEN AND UNLABORED ON 2L NC. SHOWS NO SIGNS OF ACUTE RESPIRATORY DISTRESS, NO ACUTE PAIN. TELE MONITOR SR. IV R FA 20G ITS CLEAN DRY AND INTACT. SHOWS NO SIGNS OF INFILTRATION, FLUSHING WELL. YOVANA AV SHUNT WITH DRESSING INTACT. SAFETY PRECAUTIONS IN PLACE. BED IN LOWEST POSITION, LOCKED, AND CALL LIGHT KEPT WITHIN REACH. WILL CONTINUE TO MONITOR.
[2020-02-12] VITALS (7 sets, daily range): BP systolic 123–138; BP diastolic 58–85
--- NOTE | 2020-02-12 01:12 | NUR ---
MS2/RN ASSUMED CARE FOR CONTINUITY OF CARE AT 0030. PATIENT WAS IN BED SLEEPING APPEAR COMFORTABLE, NO DISTRESS NOTED, BREATHING EVEN AND UNLABORED,WITH 2L O2. WILL MONITOR.
[2020-02-12 06:35] LABS: CALCIUM, SERUM 7.6 mg/dL (8.5-10.1); MAGNESIUM 2.8 mg/dL (1.8-2.4); POTASSIUM 5.1 mmol/L (3.5-5.1)
[2020-02-12] MEDS: INSULIN REGULAR, HUMAN 100 UNIT/ML 3 ML VIAL SQ PRN ×4 (06:37→23:49)
[2020-02-12] MEDS: BLOOD SUGAR DIAGNOSTIC 1 EACH STRIP IN SCH ×4 (06:38→23:45)
--- NOTE | 2020-02-12 06:49 | NUR ---
MS2/RN PATIENT IS STILL SLEEPING AT THIS TIME, APPEAR COMFORTABLE, NO SIGNS OF DISTRESS NOTED, O2 SAT ON 2L O2 97%, ALL NEEDS ATTENDED AT THIS TIME, WILL CONTINUE TO MONITOR.
[2020-02-12 06:58] LABS: BASOPHILS % (AUTO) 0.1 % (0.0-2.0); EOSINOPHILS % (AUTO) 1.7 % (0.0-6.0); HEMATOCRIT 25 % (39-51); HEMOGLOBIN 8.5 g/dL (13.5-17.5); LYMPHOCYTES # (AUTO) 0.6 /CMM (0.8-4.8); LYMPHOCYTES % (AUTO) 3.9 % (20.0-44.0); MEAN CORPUSCULAR HGB CONC 34 g/dl (31.0-36.0); MEAN CORPUSCULAR VOLUME 93 fL (80-96); MONOCYTES # (AUTO) 0.3 /CMM (0.1-1.30); MONOCYTES % (AUTO) 1.7 % (2.0-12.0); NEUTROPHILS # (AUTO) 13.6 /CMM (1.8-8.9); NEUTROPHILS % (AUTO) 92.6 % (43.0-81.0); PLATELET COUNT (AUTO) 106 /CMM (150-450); WHITE BLOOD COUNT (AUTO) 14.7 K/uL (4.3-11.0)
[2020-02-12 07:30] LABS: CREATININE 8.5 mg/dL (0.6-1.3); PHOSPHORUS 9.2 mg/dL (2.5-4.9)
--- NOTE | 2020-02-12 07:50 | NUR ---
CUFF SLITTER NOTE CALL FROM LAB BUN 167, CRE 8.5. LOOKED AT LABS SAW PHOS WAS 9.2 NOT REPORTED BY LAB. REPORTED RESULTS TO DR. VILLATORO. DR. VILLATORO MADE AWARE. NO NEW ORDERS AT THIS TIME. NOTIFIED DR. BAIG.
--- NOTE | 2020-02-12 07:59 | NUR ---
PATIENT ADVOCATE NOTES PATIENT IN BED RESTING COMFORTABLY. PATIENT IN NO ACUTE DISTRESS. NO SOB NOTED. PATIENT BREATHING IS EVEN AND UNLABORED. PATIENT BED ALARM IS ON. SAFETY PRECAUTIONS IN PLACE. PATIENT ON CARDIAC MONITORING READING SINUS RHYTHM HR 94. PATIENT BED IS LOCKED AND IN LOWEST POSITION. CALL LIGHT WITHIN REACH. WILL CONTINUE TO MONITOR.
[2020-02-12] MEDS: SEVELAMER CARBONATE 800 MG TABLET PO SCH ×3 (08:48→18:15)
[2020-02-12] MEDS: VIT B CMPLX 3/FA/VIT C/BIOTIN 1 TAB TABLET PO SCH (08:48)
[2020-02-12] MEDS: ESCITALOPRAM OXALATE (10 MG) 10 MG TABLET PO SCH (08:49)
[2020-02-12] MEDS: METOPROLOL SUCCINATE 50 MG TAB.SR.24H PO SCH (08:49)
[2020-02-12] MEDS: AMLODIPINE BESYLATE 10 MG TABLET PO SCH (08:49)
--- NOTE | 2020-02-12 10:47 | NUR ---
CLIENT LIAISON NOTE PATIENT CURRENTLY UNDERGOING DIALYSIS. PATIENT STABLE AT THIS TIME. BP 127/71. HR 91.
--- NOTE | 2020-02-12 11:32 | NUR ---
LEARNING TECHNOLOGIST NOTE NO CALL FROM LAB REGARDING PROCAL CRITICAL VALUE 43.66. INFORMED DR. VILLATORO. WILL CONTINUE TO MONITOR PER DR. VILLATORO. NO NEW ORDERS AT THIS TIME. DR. VILLATORO AWARE OF POSITIVE BLOOD OCCULT STOOL. PER MD SHE WILL CONTACT DR. COELHO TO CONSULT PATIENT.
--- NOTE | 2020-02-12 12:35 | NUR ---
CHIEF TECHNICIAN X RAY NOTE PATIENT COMPLETED DIALYSIS. 1.5L TAKEN OUT. CURRENT BP 125/59. HR 91.
--- NOTE | 2020-02-12 17:20 | NUR ---
TANBARK LABORER NOTE RESULTS FOR COVID RAPID TEST CAME BACK POSITIVE. REPORTED RESULTS TO DR. VILLATORO. NO NEW ORDERS AT THIS TIME.
--- NOTE | 2020-02-12 19:29 | NUR ---
OUTBOARD MOTORS EXPERIMENTAL MECHANIC NOTES PATIENT IN BED RESTING COMFORTABLY. PATIENT IN NO ACUTE DISTRESS. NO SOB NOTED. PATIENT BREATHING IS EVEN AND UNLABORED. PATIENT BED ALARM IS ON. SAFETY PRECAUTIONS IN PLACE. PATIENT ON CARDIAC MONITORING READING SINUS RHYTHM HR 92.PATIENT KEPT CLEAN, DRY, AND COMFORTABLE THROUGHOUT SHIFT. HOB IS ELEVATED. PATIENT BED IS LOCKED AND IN LOWEST POSITION. CALL LIGHT WITHIN REACH. WILL ENDORSE CARE TO PM SHIFT FOR MARIANELA.
--- NOTE | 2020-02-12 20:39 | NUR ---
NEUROSURGICAL NURSE PRACTITIONER OPENING NOTE RECEIVED PATIENT IN BED. A/OX1-2. ON OXYGEN 2L/MIN VIA NASAL CANNULA. RESPIRATIONS ARE EVEN AND UNLABORED. NO S/S SOB NOTED. NO S/S PAIN AT THIS TIME. EXTERNAL TELE MONITOR READS SINUS RHYTHM HR 99. IN NO APPARENT DISTRESS. IV ACCESS IN RFA#20 PATENT AND SALINE LOCKED. THERE IS A YOVANA AV SHUNT, SIGN ON WALL NOTED NOT TO DRAW BLOOD OR TAKE BLOOD PRESSURE ON LEFT ARM. BED IS LOW AND LOCKED, HOB ELEVATED IN SEMI FOWLERS, SIDE RAILS UP X2. CALL LIGHT WITHIN REACH. WILL CONTINUE TO MONITOR.
--- NOTE | 2020-02-12 23:05 | NUR ---
RESTAURANT LINE SERVER NOTE - TRANSFER CARE NOTE TRANSFER CARE GIVEN TO GAIL MANNING. PATIENT REMAINS CONFUSED, A/OX1. ON OXYGEN 2L/MIN VIA NASAL CANNULA, NO RESP DISTRESS NOTED, NO PAIN NOTED. IN NO APPARENT DISTRESS. IV ACCESS MAINTAINED. BED REMAINS IN LOWEST POSITION, LOCKED, SIDE RAILS UP X2, CALL LIGHT WITHIN REACH.
[2020-02-13] VITALS (10 sets, daily range): BP systolic 117–133; BP diastolic 53–67
--- NOTE | 2020-02-13 00:17 | NUR ---
SCIENTIFIC MANAGER NOTE RECEIVED PT IN BED. A/0 X2. BREATHING EVEN AND UNLABORED WITH NO SOB OR ACUTE DISTRESS NOTED. DENIES ANY PAIN OR DISCOMFORT. IV SITE ON RFA PATENT AND INTACT. YOVANA AV SHUNT NOTED. NO BLEEDING NOTED. ALL NEEDS RENDERED. CALL LIGHT WITHIN REACH. BED IN LOWEST POSITION. SRX2 UP. WILL CONTINUE TO MONITOR.
--- NOTE | 2020-02-13 02:03 | NUR ---
television installer helper note report given to eusebia . pt in bed. sleeping. breathing even and unlabored with no sob or acute distress noted in 2lpm of oxygen. no s/s of pain or discomfort. all needs rendered. kept clean and dry. call light within reach. srx2 up.
--- NOTE | 2020-02-13 02:10 | NUR ---
PHYSICIAN OFFICE NURSE OPENING NOTE PATIENT IN BED. A/OX1-2. ON OXYGEN 2L/MIN VIA NASAL CANNULA. NO S/S PAIN AT THIS TIME. REMAINS ON TELE MONITOR NO DISTRESS. IV ACCESS IN RFA#20. BED IS LOW AND LOCKED, HOB ELEVATED IN SEMI FOWLERS, SIDE RAILS UP X2. CALL LIGHT WITHIN REACH. WILL CONTINUE TO MONITOR.
[2020-02-13 06:06] LABS: BASOPHILS # (AUTO) 0.1 /CMM (0.0-0.2); BASOPHILS % (AUTO) 0.6 % (0.0-2.0); EOSINOPHILS % (AUTO) 2.8 % (0.0-6.0); HEMOGLOBIN 7.1 g/dL (13.5-17.5); LYMPHOCYTES # (AUTO) 0.6 /CMM (0.8-4.8); LYMPHOCYTES % (AUTO) 5.8 % (20.0-44.0); MEAN CORPUSCULAR HGB CONC 35 g/dl (31.0-36.0); MEAN CORPUSCULAR VOLUME 95 fL (80-96); MONOCYTES # (AUTO) 0.1 /CMM (0.1-1.30); MONOCYTES % (AUTO) 0.9 % (2.0-12.0); NEUTROPHILS # (AUTO) 8.8 /CMM (1.8-8.9); NEUTROPHILS % (AUTO) 89.9 % (43.0-81.0); PLATELET COUNT (AUTO) 96 /CMM (150-450); RED BLOOD CELL COUNT(AUTO) 2.15 MIL/uL (4.5-6.0); WHITE BLOOD COUNT (AUTO) 9.8 K/uL (4.3-11.0)
[2020-02-13 06:18] LABS: CALCIUM, SERUM 7.8 mg/dL (8.5-10.1); CREATININE 7.1 mg/dL (0.6-1.3); MAGNESIUM 2.4 mg/dL (1.8-2.4); POTASSIUM 4.1 mmol/L (3.5-5.1)
[2020-02-13] MEDS: BLOOD SUGAR DIAGNOSTIC 1 EACH STRIP IN SCH ×4 (06:28→23:49)
[2020-02-13 06:34] LABS: PHOSPHORUS 8.6 mg/dL (2.5-4.9)
--- NOTE | 2020-02-13 07:30 | NUR ---
COMMUNITY HEALTH REPRESENTATIVE NOTES PT IN BED, ASLEEP, EASY TO AROUSE, ALERT AND VERBALLY RESPONSIVE, WITH EPISODES OF CONFUSION, NO SIGN OF PAIN OR DISTRESS, CALL LIGHT WITHIN REACH, SAFETY PRECAUTIONS OBSERVED.
--- NOTE | 2020-02-13 07:35 | NUR ---
DEEP SUBMERGENCE VEHICLE CREWMEMBER CLOSING NOTE PATIENT RESTING IN BED. A/OX2. REMAINS ON OXYGEN 2L/MIN VIA NASAL CANNULA. NO RESP DISTRESS NOTED. NO PAIN NOTED. EXTERNAL TELE MONITOR READS SINUS RHYTHM. NO DISTRESS. IV ACCESS MAINTAINED IN RFA#20. BED REMAINS LOW AND LOCKED, HOB ELEVATED IN SEMI FOWLERS, SIDE RAILS UP X2. CALL LIGHT WITHIN REACH. WILL ENDORSE TO NEXT SHIFT.
--- NOTE | 2020-02-13 07:46 | NUR ---
NIGHT SUPERVISOR NOTE RECEIVED A CRITICAL LAB PHOS 8.6. INFORMED DR. VILLATORO OF THIS LAB. ALSO INFORMED HER LAST HD WAS YESTERDAY. PHOS YESTERDAY WAS 9.2. ENDORSED TO ADITI MANNING TO F/U WITH DR. VILLATORO.
[2020-02-13 07:58] LABS: HEMATOCRIT 20 % (39-51)
[2020-02-13] MEDS: SEVELAMER CARBONATE 800 MG TABLET PO SCH ×3 (08:48→17:21)
[2020-02-13] MEDS: ESCITALOPRAM OXALATE (10 MG) 10 MG TABLET PO SCH (08:48)
[2020-02-13] MEDS: VIT B CMPLX 3/FA/VIT C/BIOTIN 1 TAB TABLET PO SCH (08:48)
[2020-02-13] MEDS: PANTOPRAZOLE 40 MG VIAL IV SCH ×2 (08:51→16:24)
[2020-02-13] MEDS: INSULIN REGULAR, HUMAN 100 UNIT/ML 3 ML VIAL SQ PRN ×3 (11:46→23:50)
[2020-02-13] MEDS: METOPROLOL SUCCINATE 50 MG TAB.SR.24H PO SCH (11:59)
[2020-02-13] MEDS: AMLODIPINE BESYLATE 10 MG TABLET PO SCH (11:59)
--- NOTE | 2020-02-13 12:30 | NUR ---
RECYCLING COORDINATOR NOTES PT IN BED, AWAKE, ALERT, NO SIGN OF PAIN OR DISTRESS, CALL LIGHT WITHIN REACH, SEEN BY DR. IRVING MD AWARE OF CURRENT LABS, SCHEDULED MEDS GIVEN ORDERED, NEEDS ATTENDED.
--- NOTE | 2020-02-13 17:21 | NUR ---
MECHANIC MARINE ENGINE NOTES PT COMPLETED 1 UINT PRBC TRANSFUSION, TOLERATED WELL, NO ADVERSE REACTIONS NOTED, VITAL SIGNS TAKEN AND RECORDED.
--- NOTE | 2020-02-13 18:18 | NUR ---
TEMPERING MACHINE OPERATOR NOTES PT IN BED, ASLEEP, EASY TO AROUSE, ALERT AND VERBALLY RESPONSIVE, DENIES PAIN, BREATHING PATTERN NORMAL, CALL LIGHT WITHIN REACH, SAFETY PRECAUTIONS OBSERVED, PM CARE PROVIDED, ALL NEEDS ATTENDED.
--- NOTE | 2020-02-13 19:30 | NUR ---
TELE/RN NOTES RECEIVED PATIENT IN BED RESTING. PATIENT IS ALERT AND ORIENTED X 2. PATIENT SHOWS NO SIGNS OF SOB OR RESPIRATORY DISTRESS NOTED. PATIENT STATES NO PAIN AT THIS TIME. PATIENT HAS IV ACCESS ON RIGHT FOREARM #20G, SL, YOVANA AV SHUNT. PATIENT IN NO SIGNS OF DISTRESS. SAFETY MEASURES ARE IN PLACE, BED IS LOCKED AND PLACED IN THE LOW POSITION, SIDE RAILS UP X 2. CALL LIGHT WITHIN REACH. WILL CONTINUE TO MONITOR THROUGH OUT SHIFT.
[2020-02-14] VITALS: BP 123/56
[2020-02-14 04:00] VITALS: BP 112/59
[2020-02-14] MEDS: BLOOD SUGAR DIAGNOSTIC 1 EACH STRIP IN SCH ×4 (06:21→23:37)
--- NOTE | 2020-02-14 06:35 | NUR ---
TELE/RN CLOSING NOTES PATIENT IS IN BED RESTING. PATIENT IS ALERT AND ORIENTED X2-3, SURINAMESE SPEAKING. BREATHING IS EVEN AND UNLABORED. NO SIGNS OF RESPIRATORY DISTRESS OR SOB NOTED. TELE READING SR 79. PATIENT IS IN NO SIGNS OF DISTRESS. PATIENT HAS IV ACCESS ON RIGHT FOREARM #20G SL, INTACT. ALL NEEDS HAVE BEEN MET DURING SHIFT. SAFETY MEASURES ARE IN PLACE, BED IS LOCKED AND PLACED IN THE LOW POSITION, SIDE RAILS UP X 2. CALL LIGHT IS WITHIN REACH. WILL ENDORSE CARE TO DAY SHIFT NURSE.
[2020-02-14 06:40] LABS: BASOPHILS # (AUTO) 0.1 /CMM (0.0-0.2); BASOPHILS % (AUTO) 0.5 % (0.0-2.0); EOSINOPHILS % (AUTO) 3.9 % (0.0-6.0); HEMATOCRIT 24 % (39-51); HEMOGLOBIN 8.5 g/dL (13.5-17.5); LYMPHOCYTES # (AUTO) 0.7 /CMM (0.8-4.8); LYMPHOCYTES % (AUTO) 7.6 % (20.0-44.0); MEAN CORPUSCULAR HGB CONC 35 g/dl (31.0-36.0); MEAN CORPUSCULAR VOLUME 90 fL (80-96); MONOCYTES % (AUTO) 0.4 % (2.0-12.0); NEUTROPHILS % (AUTO) 87.6 % (43.0-81.0); PLATELET COUNT (AUTO) 97 /CMM (150-450); RED BLOOD CELL COUNT(AUTO) 2.71 MIL/uL (4.5-6.0); WHITE BLOOD COUNT (AUTO) 9.2 K/uL (4.3-11.0)
[2020-02-14 07:20] LABS: CALCIUM, SERUM 7.6 mg/dL (8.5-10.1); MAGNESIUM 2.5 mg/dL (1.8-2.4); POTASSIUM 4.4 mmol/L (3.5-5.1)
[2020-02-14 07:33] LABS: CREATININE 8.6 mg/dL (0.6-1.3)
[2020-02-14 07:34] LABS: PHOSPHORUS 8.9 mg/dL (2.5-4.9)
--- NOTE | 2020-02-14 07:36 | NUR ---
RELAY ASSEMBLER NOTES PATIENT RECEIVED IN BED, ALERT AND ORIENTED X 2 [place] CITIZEN SPEAKING. ON NASAL CANNULA, 2 LITERS, WITH NO SIGNS OF RESPIRATORY DISTRESS WITH NO SOB NOTED, AND WITH EVEN NON-LABORED BREATHING. ON GEOGRAPHY INSTRUCTOR, SINUS RHYTHM 70'S. IV ACCESS INTACT AND PATENT. PATIENT PRESENTING WITH NO SIGNS OF PAIN OR DISCOMFORT. ISOLATION PRECAUTIONS IMPLEMENTED. SAFETY PRECAUTIONS IMPLEMENTED WITH BED LOCKED, BED IN THE LOWEST POSITIONS, BILATERAL SIDE RAILS UP, BED ALARM ON, AND CALL LIGHT WITHIN EASY REACH. WILL CONTINUE TO MONITOR PATIENT.
[2020-02-14 08:00] VITALS: BP 138/73
[2020-02-14] MEDS: PANTOPRAZOLE 40 MG VIAL IV SCH ×2 (08:38→17:06)
[2020-02-14] MEDS: SEVELAMER CARBONATE 800 MG TABLET PO SCH ×3 (08:38→17:06)
[2020-02-14] MEDS: VIT B CMPLX 3/FA/VIT C/BIOTIN 1 TAB TABLET PO SCH (08:38)
[2020-02-14] MEDS: ESCITALOPRAM OXALATE (10 MG) 10 MG TABLET PO SCH (08:38)
[2020-02-14] MEDS: METOPROLOL SUCCINATE 50 MG TAB.SR.24H PO SCH (08:48)
[2020-02-14] MEDS: AMLODIPINE BESYLATE 10 MG TABLET PO SCH (08:48)
--- NOTE | 2020-02-14 09:00 | NUR ---
ROUTE CLERK NOTES NON-ADMINISTERED AND HELD BLOOD PRESSURE MEDICATION, DUE TO PATIENT RECEIVING HEMODIALYSIS. WILL CONTINUE TO MONITOR PATIENT.
[2020-02-14 12:00] VITALS: BP 139/67
[2020-02-14] MEDS ORDERED: PANT40TA2 PO (12:11)
[2020-02-14] MEDS ORDERED: SEVE800T7 PO (12:11)
[2020-02-14] MEDS: INSULIN REGULAR, HUMAN 100 UNIT/ML 3 ML VIAL SQ PRN ×3 (12:19→23:46)
--- NOTE | 2020-02-14 17:33 | NUR ---
TAPPET ADJUSTER NOTES COVID-19 ANTIGEN SPECIMEN COLLECTED AND SENT TO LAB. WILL AWAIT FOR RESULTS FROM LAB.
--- NOTE | 2020-02-14 18:43 | NUR ---
RADIO MECHANIC APPRENTICE NOTES PATIENT IN BED RESTING COMFORTABLY, ALERT AND ORIENTED X 2, [place] SPEAKING. ON NASAL CANNULA 2 LITERS, WITH NO SIGNS OF RESPIRATORY DISTRESS WITH EVEN NON-LABORED BREATHING, AND NO SOB NOTED. ON INDUCTION COORDINATION POWER ENGINEER, SINUS RHYTHM 78. IV ACCESS INTACT AND PATENT. SKIN KEPT CLEAN, WARM AND DRY TO TOUCH. PATIENT PRESENTS WITH NO PAIN OR DISCOMFORT AT THIS TIME. MET ALL OF PATIENT'S NEEDS. ISOLATION PRECAUTIONS IMPLEMENTED. SAFETY PRECAUTIONS IMPLEMENTED WITH BED LOCKED, BED IN THE LOWEST POSITION, BILATERAL SIDE RAILS UP, BED ALARM ON, AND CALL LIGHT WITHIN EASY REACH. WILL ENDORSE PLAN OF CARE TO UPCOMING RN.
--- NOTE | 2020-02-14 18:51 | NUR ---
HANDLE MACHINE OPERATOR NOTES INFORMED AND NOTIFIED DR. VILLATORO ABOUT PATIENT'S COVID-19 TEST RAPID RESULTS POSITIVE.
--- NOTE | 2020-02-14 19:30 | NUR ---
PHARMACIST PER DIEM NOTES SR-79 ON TELE MONITOR.RECEIVED ON BED A/O X1-2,BREATHING NON LABORED,02 2L/NC IN USED,ISOLATION FOR COVID POSITIVE.SALINE LOCK RFA INTACT AND PATENT,LUAV SHUNT FOR HD TREATMENT.CALL LIGHT IN REACH,NEEDS ANTICIPATED.
[2020-02-14 20:00] VITALS: BP 127/78
--- NOTE | 2020-02-14 23:30 | NUR ---
WAREHOUSE HAND NOTES ACCU-CHECK BLOOD SUGAR CHECK 175,COVERED WITH HUMULIN R 4 UNITS/SLIDING SCALE.
[2020-02-15] VITALS (16 sets, daily range): BP systolic 113–142; BP diastolic 44–59
[2020-02-15] MEDS: BLOOD SUGAR DIAGNOSTIC 1 EACH STRIP IN SCH ×3 (05:35→17:07)
[2020-02-15] MEDS: INSULIN REGULAR, HUMAN 100 UNIT/ML 3 ML VIAL SQ PRN ×2 (05:41→12:18)
--- NOTE | 2020-02-15 05:49 | NUR ---
OLEOMARGARINE MAKER NOTES ACCU-CHECK BLOOD SUGAR CHECK 161,COVERED WITH HUMULIN R 4 UNITS PER SLIDING SCALE.
--- NOTE | 2020-02-15 06:23 | NUR ---
CONTRACTING SPECIALIST NOTES NO SIGNIFICANT CHANGE IN STATUS,SCHEDULED HD TODAY,YOVANA AV SHUNT WITH GOOD THRILL AND BRUIT NOTED,IN NO ACUTE DISTRESS.WILL ENDORSE TO DAY NURSE FOR MARIANELA.
[2020-02-15 07:01] LABS: BASOPHILS % (AUTO) 0.6 % (0.0-2.0); EOSINOPHILS % (AUTO) 4.2 % (0.0-6.0); HEMATOCRIT 21 % (39-51); HEMOGLOBIN 7.1 g/dL (13.5-17.5); LYMPHOCYTES # (AUTO) 0.6 /CMM (0.8-4.8); LYMPHOCYTES % (AUTO) 8.7 % (20.0-44.0); MEAN CORPUSCULAR HGB CONC 34 g/dl (31.0-36.0); MEAN CORPUSCULAR VOLUME 90 fL (80-96); MONOCYTES # (AUTO) 0.1 /CMM (0.1-1.30); MONOCYTES % (AUTO) 0.9 % (2.0-12.0); NEUTROPHILS % (AUTO) 85.6 % (43.0-81.0); PLATELET COUNT (AUTO) 75 /CMM (150-450); RED BLOOD CELL COUNT(AUTO) 2.34 MIL/uL (4.5-6.0)
[2020-02-15 07:45] LABS: CALCIUM, SERUM 7.9 mg/dL (8.5-10.1); CREATININE 7.1 mg/dL (0.6-1.3); MAGNESIUM 2.3 mg/dL (1.8-2.4); PHOSPHORUS 5.8 mg/dL (2.5-4.9); POTASSIUM 4.2 mmol/L (3.5-5.1)
[2020-02-15] MEDS: AMLODIPINE BESYLATE 10 MG TABLET PO SCH (08:50)
[2020-02-15] MEDS: VIT B CMPLX 3/FA/VIT C/BIOTIN 1 TAB TABLET PO SCH (08:50)
[2020-02-15] MEDS: PANTOPRAZOLE 40 MG VIAL IV SCH ×2 (08:50→16:26)
[2020-02-15] MEDS: SEVELAMER CARBONATE 800 MG TABLET PO SCH ×3 (08:50→17:07)
[2020-02-15] MEDS: ESCITALOPRAM OXALATE (10 MG) 10 MG TABLET PO SCH (08:50)
[2020-02-15] MEDS: METOPROLOL SUCCINATE 50 MG TAB.SR.24H PO SCH (08:52)
[2020-02-15 08:54] LABS: BAND % (MANUAL) 17 % (0.0-5.0); EOSINOPHILS % (MANUAL) 3 % (0-4); LYMPHOCYTES % (MANUAL) 11 % (16-48); MONOCYTES % (MANUAL) 4 % (0-11.0); NEUTROPHILS % (MANUAL) 65 (42-76)
[2020-02-15] MEDS ORDERED: EPOETIN ALFA (10,000 UNIT) 10,000 UNIT/ML VIAL SQ ONE (12:00)
--- NOTE | 2020-02-15 20:00 | NUR ---
RN NOTE PT RECEIVED IN BED RESTING. PT IS A/O X2. PT IS ON 4 L VIA NC SATING ABOVE 95%. PT HAS UNLABORED BREATHING , PT ON TELE MONITOR SHOWING SR WITH HR AT 80s. SAFETY MEASURES IN PLACE.
[2020-02-16] VITALS (9 sets, daily range): BP systolic 114–145; BP diastolic 50–61
[2020-02-16] MEDS: BLOOD SUGAR DIAGNOSTIC 1 EACH STRIP IN SCH ×4 (00:16→17:26)
[2020-02-16] MEDS: INSULIN REGULAR, HUMAN 100 UNIT/ML 3 ML VIAL SQ PRN (00:19)
--- NOTE | 2020-02-16 07:22 | NUR ---
RN NOTE PT REMAINED STABLE DURING MY SHIFT, REPORT GIVEN TO INCOMING SHIFT FOR MARIANELA.
[2020-02-16 07:26] LABS: BASOPHILS # (AUTO) 0.1 /CMM (0.0-0.2); BASOPHILS % (AUTO) 0.7 % (0.0-2.0); EOSINOPHILS % (AUTO) 5.6 % (0.0-6.0); HEMATOCRIT 24 % (39-51); HEMOGLOBIN 8.3 g/dL (13.5-17.5); LYMPHOCYTES # (AUTO) 0.7 /CMM (0.8-4.8); LYMPHOCYTES % (AUTO) 10.3 % (20.0-44.0); MEAN CORPUSCULAR HGB CONC 35 g/dl (31.0-36.0); MEAN CORPUSCULAR VOLUME 91 fL (80-96); MONOCYTES # (AUTO) 0.1 /CMM (0.1-1.30); MONOCYTES % (AUTO) 0.9 % (2.0-12.0); NEUTROPHILS % (AUTO) 82.5 % (43.0-81.0); PLATELET COUNT (AUTO) 70 /CMM (150-450); RED BLOOD CELL COUNT(AUTO) 2.63 MIL/uL (4.5-6.0); WHITE BLOOD COUNT (AUTO) 7.3 K/uL (4.3-11.0)
--- NOTE | 2020-02-16 07:30 | NUR ---
SERVICE CONSULTANT OPENING NOTES RECEIVED PATIENT IN BED, AWAKE, A/O X2. PATIENT ON OXYGEN THERAPY AT 4 L PER NASAL CANULA. NO COMPLAINS OF PAIN AT THIS TIME. RFA IV ACCESS G#20 AND YOVANA AV SHUNT PRESENT, INTACT. SAFETY PRECAUTIONS IN PLACE; BED IN LOW POSITION AND LOCKED, RAILS UP X2, CALL LIGHT WITHIN REACH. WILL CONTINUE TO MONITOR PATIENT.
[2020-02-16 07:38] LABS: ALBUMIN 1.8 g/dL (3.4-5.0); BILIRUBIN,TOTAL 0.7 mg/dL (0.2-1.0); CALCIUM, SERUM 7.8 mg/dL (8.5-10.1); CREATININE 4.7 mg/dL (0.6-1.3); MAGNESIUM 1.8 mg/dL (1.8-2.4); PHOSPHORUS 2.5 mg/dL (2.5-4.9); TOTAL PROTEIN, SERUM 6.7 g/dL (6.4-8.2)
[2020-02-16] MEDS: AMLODIPINE BESYLATE 10 MG TABLET PO SCH (08:12)
[2020-02-16] MEDS: METOPROLOL SUCCINATE 50 MG TAB.SR.24H PO SCH (08:12)
[2020-02-16] MEDS: PANTOPRAZOLE 40 MG VIAL IV SCH ×2 (08:38→17:15)
[2020-02-16] MEDS: ESCITALOPRAM OXALATE (10 MG) 10 MG TABLET PO SCH (08:38)
[2020-02-16] MEDS: SEVELAMER CARBONATE 800 MG TABLET PO SCH ×3 (08:38→17:15)
[2020-02-16] MEDS: VIT B CMPLX 3/FA/VIT C/BIOTIN 1 TAB TABLET PO SCH (08:38)
[2020-02-16] MEDS ORDERED: LORAZEPAM INJ 2 MG/ML VIAL IV PRN (09:30)
[2020-02-16 10:56] LABS: BAND % (MANUAL) 3 % (0.0-5.0); EOSINOPHILS % (MANUAL) 1 % (0-4); LYMPHOCYTES % (MANUAL) 4 % (16-48); MONOCYTES % (MANUAL) 1 % (0-11.0); NEUTROPHILS % (MANUAL) 91 (42-76)
--- NOTE | 2020-02-16 11:00 | NUR ---
HOT MILL WORKER NOTES PATIENT HAD DIALYSIS. 1 L OUT. PATIENT TOLERATED WELL. WILL CONTINUE TO MONITOR.
--- NOTE | 2020-02-16 18:38 | NUR ---
MEDICINE MAN CLOSING NOTES PATIENT REMAINS IN BED, AWAKE, A/O X2. PATIENT ON OXYGEN THERAPY AT 4 L PER NASAL CANULA. NO COMPLAINS OF PAIN DURING DAY SHIFT. RFA IV ACCESS G#20 AND YOVANA AV SHUNT PRESENT, INTACT. HD DONE TODAY WITH 1 L OUT AND PATIENT TOLERATING WELL. ALL NEEDS ATTENDED TO THROUGHOUT THE DAY. SAFETY PRECAUTIONS IN PLACE; BED IN LOW POSITION AND LOCKED, RAILS UP X2, CALL LIGHT WITHIN REACH. WILL ENDORSE TO FABRICATION AND ASSEMBLY SUPERVISOR NURSE.
--- NOTE | 2020-02-16 20:03 | NUR ---
RN OPENING NOTES PATIENT RECEIVED RESTING IN BED A/O X 2. ON 4L OF O2 WITH BREATHING EVEN AND UNLABORED, NO SOB NOTED. NO SIGNS OF ACUTE DISTRESS. NO COMPLAINTS OF PAIN OR DISCOMFORT. TELE MONITOR READING SR. IV LOCATED ON RFA #18 SL. YOVANA AV SHUNT NOTED AND IN PLACE. SAFETY PRECAUTIONS IN PLACE WITH BED IN LOWEST POSITION, CALL LIGHT WITHIN REACH, BREAKS ON, SIDE RAILS UP. WILL CONTINUE TO MONITOR THROUGHOUT THE NIGHT.
[2020-02-17] VITALS (12 sets, daily range): BP systolic 119–138; BP diastolic 49–58
[2020-02-17] MEDS: INSULIN REGULAR, HUMAN 100 UNIT/ML 3 ML VIAL SQ PRN ×3 (00:17→17:10)
[2020-02-17] MEDS: BLOOD SUGAR DIAGNOSTIC 1 EACH STRIP IN SCH ×5 (00:17→23:14)
--- NOTE | 2020-02-17 06:30 | NUR ---
RN NOTES FSBS 100. NO INSULIN ADMINISTERED PER SLIDING SCALE.
--- NOTE | 2020-02-17 06:41 | NUR ---
RN CLOSING NOTES PATIENT RESTING IN BED A/O X 2. ON 2L OF O2 WITH BREATHING EVEN AND UNLABORED, NO SOB NOTED. NO SIGNS OF ACUTE DISTRESS. NO COMPLAINTS OF PAIN OR DISCOMFORT. TELE MONITOR READING SR. IV LOCATED ON RFA #18 SL. YOVANA AV SHUNT NOTED AND IN PLACE. SAFETY PRECAUTIONS IN PLACE WITH BED IN LOWEST POSITION, CALL LIGHT WITHIN REACH, BREAKS ON, SIDE RAILS UP. ALL NEEDS ATTENDED TO. PATIENT KEPT CLEAN AND DRY THROUGHOUT THE NIGHT. WILL ENDORSE TO ONCOMING SHIFT ABOUT MARIANELA.
[2020-02-17 07:34] LABS: CALCIUM, SERUM 8.1 mg/dL (8.5-10.1); CREATININE 5.1 mg/dL (0.6-1.3); MAGNESIUM 2.1 mg/dL (1.8-2.4); PHOSPHORUS 3.5 mg/dL (2.5-4.9); POTASSIUM 4.2 mmol/L (3.5-5.1)
--- NOTE | 2020-02-17 07:50 | NUR ---
RN OPENING NOTE Patient is resting in bed, A/O x3, showing no signs of acute distress, saturating 94% on 2L NC. Tele monitor SR 94. IV line in the RFA#20g is clean and intact flushing well. YOVANA AV shunt noted. Patient denies any pain or discomfort at this time. Bed is in lowest position, side rails x2 in upright position, call light is within reach, fall safety and aspiration precautions enforced. Will continue with plan of care.
[2020-02-17] MEDS: SEVELAMER CARBONATE 800 MG TABLET PO SCH ×3 (08:14→17:10)
[2020-02-17] MEDS: ESCITALOPRAM OXALATE (10 MG) 10 MG TABLET PO SCH (08:14)
[2020-02-17] MEDS: PANTOPRAZOLE 40 MG VIAL IV SCH ×2 (08:14→17:10)
[2020-02-17] MEDS: VIT B CMPLX 3/FA/VIT C/BIOTIN 1 TAB TABLET PO SCH (08:14)
[2020-02-17] MEDS: AMLODIPINE BESYLATE 10 MG TABLET PO SCH (08:17)
[2020-02-17 08:30] LABS: BASOPHILS # (AUTO) 0.1 /CMM (0.0-0.2); BASOPHILS % (AUTO) 0.7 % (0.0-2.0); EOSINOPHILS % (AUTO) 5.6 % (0.0-6.0); HEMATOCRIT 23 % (39-51); HEMOGLOBIN 7.5 g/dL (13.5-17.5); LYMPHOCYTES # (AUTO) 0.7 /CMM (0.8-4.8); LYMPHOCYTES % (AUTO) 9.4 % (20.0-44.0); MEAN CORPUSCULAR HGB CONC 33 g/dl (31.0-36.0); MEAN CORPUSCULAR VOLUME 88 fL (80-96); MONOCYTES # (AUTO) 0.1 /CMM (0.1-1.30); MONOCYTES % (AUTO) 0.8 % (2.0-12.0); NEUTROPHILS # (AUTO) 6.4 /CMM (1.8-8.9); NEUTROPHILS % (AUTO) 83.5 % (43.0-81.0); PLATELET COUNT (AUTO) 69 /CMM (150-450); RED BLOOD CELL COUNT(AUTO) 2.54 MIL/uL (4.5-6.0); WHITE BLOOD COUNT (AUTO) 7.6 K/uL (4.3-11.0)
[2020-02-17 09:02] LABS: EOSINOPHILS % (MANUAL) 2 % (0-4); LYMPHOCYTES % (MANUAL) 9 % (16-48); NEUTROPHILS % (MANUAL) 89 (42-76)
--- NOTE | 2020-02-17 10:17 | NUR ---
RN NOTE Notified pharmacy that metoprolol need to be refilled in [facility]. Medication still not available at this time.
[2020-02-17] MEDS: METOPROLOL SUCCINATE 50 MG TAB.SR.24H PO SCH (11:46)
[2020-02-17] MEDS ORDERED: NEPRO VAN 237 ML CAN PO PRN (12:00)
--- NOTE | 2020-02-17 13:11 | NUR ---
RN NOTE BLOOD TRANSFUSION Blood transfusion started at 1255. Patient is a/ox2, showing no signs of acute distress VS WNL. no s/sx of tranfusion reaction. Will continue to closely monitor.
--- NOTE | 2020-02-17 19:19 | NUR ---
RN CLOSING NOTE Patient is resting in bed, A/O x3, showing no signs of acute distress, saturating 94% on 2L NC. Tele monitor SR 94. IV line in the RFA#20g is clean and intact flushing well. YOVANA AV shunt noted. Patient denies any pain or discomfort at this time. S/P 1 UNIT PRBC TODAY. ENDORSED TO RADIO REPAIRMAN THAT PATIENT IS SCHEDULED FOR EGD AT 1400 TOMORROW. NPO AFTER MIDNIGHT. All patient needs met, all due medications given, patient kept clean and dry throughout shift. Bed is in lowest position, side rails x2 in upright position, call light is within reach, fall safety and aspiration precautions enforced. Will endorse to maintenance technician 3rd shift for MARIANELA.
--- NOTE | 2020-02-17 19:37 | NUR ---
GROCERY BAGGER OPENING NOTES PATIENT SLEEPING, AWAKENS TO TOUCH. A/OX2; PRIMARY LANGUAGE CONGOLESE. ON 2L NC; NO S/S OF ACUTE RESPIRATORY DISTRESS; BREATHING IS EVEN AND UNLABORED. NO S/S OF PAIN NOTED. TELE MONITOR READING SINUS RHYTHM, HEART RATE 75. IV PRESENT ON RIGHT FA, SIZE 20, INTACT & PATENT, HEP LOCKED. CONTACT/DROPLET PRECAUTIONS IN PLACE FOR POSITIVE COVID 19. SAFETY MEASURES IN PLACE AND PATIENT'S NEEDS MET. BED LOCKED, ALARM ON, HOB ELEVATED, SIDE RAILS X3, CALL LIGHT WITHIN REACH. WILL CONTINUE TO MONITOR.
[2020-02-18] VITALS (8 sets, daily range): BP systolic 102–134; BP diastolic 50–66
[2020-02-18] MEDS: BLOOD SUGAR DIAGNOSTIC 1 EACH STRIP IN SCH ×3 (05:32→17:32)
--- NOTE | 2020-02-18 06:42 | NUR ---
OPTOMETRY TEACHER CLOSING NOTES PATIENT SLEEPING, AWAKENS TO TOUCH. A/OX2. ON 2L NC; NO S/S OF ACUTE RESPIRATORY DISTRESS; BREATHING IS EVEN AND UNLABORED. NO S/S OF PAIN NOTED. TELE MONITOR READING SINUS RHYTHM, HEART RATE 77. IV PRESENT ON RIGHT FA, SIZE 20, INTACT & PATENT, HEP LOCKED. SAFETY MEASURES IN PLACE AND PATIENT'S NEEDS MET. BED LOCKED, ALARM ON, HOB ELEVATED, SIDE RAILS X3, CALL LIGHT WITHIN REACH. WILL ENDORSE TO DAY SHIFT RN PLAN OF CARE.
--- NOTE | 2020-02-18 07:20 | NUR ---
ms rn received on bed, awake,alert,oriented x2,not in any form of distress, respirations even and unlabored,no sob noted,lungs are diminished,abdomen soft,positive bowel sounds,denies pain at this time,will monitor patient.
[2020-02-18] MEDS: SEVELAMER CARBONATE 800 MG TABLET PO SCH ×3 (08:00→17:32)
[2020-02-18] MEDS: VIT B CMPLX 3/FA/VIT C/BIOTIN 1 TAB TABLET PO SCH (09:00)
[2020-02-18] MEDS: ESCITALOPRAM OXALATE (10 MG) 10 MG TABLET PO SCH (09:00)
[2020-02-18] MEDS: AMLODIPINE BESYLATE 10 MG TABLET PO SCH (09:00)
[2020-02-18] MEDS: METOPROLOL SUCCINATE 50 MG TAB.SR.24H PO SCH (09:00)
--- NOTE | 2020-02-18 09:00 | NUR ---
ms fernandez npo at this time, for egd today at 2pm.
[2020-02-18 09:01] LABS: BASOPHILS # (AUTO) 0.1 /CMM (0.0-0.2); BASOPHILS % (AUTO) 0.7 % (0.0-2.0); EOSINOPHILS % (AUTO) 5.1 % (0.0-6.0); HEMATOCRIT 23 % (39-51); HEMOGLOBIN 8.2 g/dL (13.5-17.5); LYMPHOCYTES # (AUTO) 0.8 /CMM (0.8-4.8); LYMPHOCYTES % (AUTO) 10.5 % (20.0-44.0); MEAN CORPUSCULAR HGB CONC 35 g/dl (31.0-36.0); MEAN CORPUSCULAR VOLUME 93 fL (80-96); MONOCYTES # (AUTO) 0.1 /CMM (0.1-1.30); MONOCYTES % (AUTO) 1.1 % (2.0-12.0); NEUTROPHILS # (AUTO) 5.9 /CMM (1.8-8.9); NEUTROPHILS % (AUTO) 82.6 % (43.0-81.0); PLATELET COUNT (AUTO) 72 /CMM (150-450); RED BLOOD CELL COUNT(AUTO) 2.52 MIL/uL (4.5-6.0); WHITE BLOOD COUNT (AUTO) 7.2 K/uL (4.3-11.0)
[2020-02-18 09:09] LABS: CALCIUM, SERUM 8.1 mg/dL (8.5-10.1); CREATININE 6.8 mg/dL (0.6-1.3); POTASSIUM 4.6 mmol/L (3.5-5.1)
[2020-02-18 10:51] LABS: LYMPHOCYTES % (MANUAL) 16 % (16-48); MONOCYTES % (MANUAL) 2 % (0-11.0); NEUTROPHILS % (MANUAL) 73 (42-76)
[2020-02-18 10:52] LABS: EOSINOPHILS % (MANUAL) 9 % (0-4)
[2020-02-18] MEDS: PANTOPRAZOLE 40 MG VIAL IV SCH ×2 (11:57→17:32)
--- NOTE | 2020-02-18 12:00 | NUR ---
ms rn hd done w/ 1000ml out,no distress noted.
--- NOTE | 2020-02-18 12:30 | NUR ---
ms rn bs not done ,patient doing egd at this time.
[2020-02-18] MEDS ORDERED: PROPOFOL 20 ML IV ONE (13:28)
[2020-02-18] MEDS ORDERED: PROPOFOL 0 ML ONE (13:29)
[2020-02-18] MEDS ORDERED: PROPOFOL 100 ML ONE (13:31)
[2020-02-18] MEDS ORDERED: ANESTHESIA TRAY IN PYXIS 1 EA TRAY MC ONE (13:33)
--- NOTE | 2020-02-18 14:00 | NUR ---
nms rn egd done by dr. govea,all needs attended.
--- NOTE | 2020-02-18 17:51 | NUR ---
ms rn on bed, eating dinner, all previous order resumed by dr. govea.
[2020-02-19] VITALS (11 sets, daily range): BP systolic 95–134; BP diastolic 50–74
--- NOTE | 2020-02-19 00:14 | NUR ---
BLOOD SUGAR FINGERSTICK- 124, NO INSULIN COVERAGE NEEDED.
[2020-02-19] MEDS: BLOOD SUGAR DIAGNOSTIC 1 EACH STRIP IN SCH ×4 (06:00→17:54)
--- NOTE | 2020-02-19 06:03 | NUR ---
blood sugar-91. no insulin coverage given.
--- NOTE | 2020-02-19 06:47 | NUR ---
PARTS SALES COUNTERPERSON CLOSING NOTES: PATIENT IN BED, AWAKE. A/O X2. NO S/S OF DISTRESS NOTED. NO COMPLAIN OF PAIN. CALL LIGHT WITHIN REACH. BED IN LOWEST AND LOCKED POSITION. BED ALARM ON. RESTED THROUGHOUT THE NIGHT. RIGHT BUTTOCK=CLEANSED WITH SOAP AND WATER,DRY WELL AND APPLIED Z-GUARD AND COVERED WITH MEPILEX DRESSING.
[2020-02-19 06:58] LABS: BASOPHILS % (AUTO) 0.6 % (0.0-2.0); EOSINOPHILS % (AUTO) 4.7 % (0.0-6.0); HEMATOCRIT 21 % (39-51); HEMOGLOBIN 7.7 g/dL (13.5-17.5); LYMPHOCYTES # (AUTO) 0.9 /CMM (0.8-4.8); LYMPHOCYTES % (AUTO) 14.5 % (20.0-44.0); MEAN CORPUSCULAR HGB CONC 37 g/dl (31.0-36.0); MEAN CORPUSCULAR VOLUME 91 fL (80-96); MONOCYTES # (AUTO) 0.1 /CMM (0.1-1.30); MONOCYTES % (AUTO) 1.8 % (2.0-12.0); NEUTROPHILS # (AUTO) 4.7 /CMM (1.8-8.9); NEUTROPHILS % (AUTO) 78.4 % (43.0-81.0); PLATELET COUNT (AUTO) 78 /CMM (150-450); RED BLOOD CELL COUNT(AUTO) 2.28 MIL/uL (4.5-6.0)
--- NOTE | 2020-02-19 07:03 | NUR ---
MS RN OPENING NOTES RECEIVED PT RESTING IN BED AT THIS TIME. PT AOX1-2. NO SOB NOTED, NO S/S OF ANY ACUTE DISTRESS NOTED. NO C/O PAIN AT THIS TIME. RESPIRATIONS ARE EVEN AND UNLABORED WITH EQUAL RISE AND FALL IN CHEST. PT NOTED ON 2LPM O2 VIA NC. IV ACCESS NOTED IN RFA G# 20, INTACT, PATENT AND FLUSHING WELL. ASPIRATION AND SAFETY PRECAUTION IN PLACE AND MAINTAINED AT ALL TIMES. BED IN LOWEST LOCKED POSITION, HOB ELEVATED, SIDE RAILS UP X 2, CALL LIGHT AND TABLE WITHIN REACH. WILL CONTINUE TO MONITOR.
[2020-02-19 07:39] LABS: CALCIUM, SERUM 8.4 mg/dL (8.5-10.1); CREATININE 5.8 mg/dL (0.6-1.3); POTASSIUM 4.1 mmol/L (3.5-5.1)
[2020-02-19] MEDS: SEVELAMER CARBONATE 800 MG TABLET PO SCH ×3 (08:20→17:24)
[2020-02-19] MEDS: PANTOPRAZOLE 40 MG VIAL IV SCH ×2 (08:37→16:23)
[2020-02-19] MEDS: METOPROLOL SUCCINATE 50 MG TAB.SR.24H PO SCH (08:38)
[2020-02-19] MEDS: AMLODIPINE BESYLATE 10 MG TABLET PO SCH (08:38)
[2020-02-19] MEDS: ESCITALOPRAM OXALATE (10 MG) 10 MG TABLET PO SCH (08:38)
[2020-02-19] MEDS: VIT B CMPLX 3/FA/VIT C/BIOTIN 1 TAB TABLET PO SCH (08:38)
[2020-02-19] MEDS: INSULIN REGULAR, HUMAN 100 UNIT/ML 3 ML VIAL SQ PRN (12:17)
--- NOTE | 2020-02-19 12:24 | NUR ---
IV INSERTED IN RIGHT HAND G#22, GOOD FLOOD RETURN NOTED, INTACT, PATENT AND FLUSHING WELL. PT TOLERATED WELL. WILL CONTINUE TO MONITOR Addendum: 02/19/20 at 1538 by HALIE SOTO RN IV INSERTED IN RIGHT HAND G#20, GOOD BLOOD RETURN NOTED, INTACT, PATENT AND FLUSHING WELL. PT TOLERATED WELL. WILL CONTINUE TO MONITOR
--- NOTE | 2020-02-19 13:38 | NUR ---
BLOOD PICKED UP FROM LAB, BLOOD VERIFIED AND SIGNED BY TWO NURSES. NO CLOTS, NO DISCOLORATION, NO LEAKAGE NOTED. WILL CONTINUE TO MONITOR
--- NOTE | 2020-02-19 13:38 | NUR ---
PRE BLOOD TRANSFUSION VS, BR 113/69, HR 72, RR 20, T 98.7, SPO2 95. WILL CONTINUE TO MONITOR
--- NOTE | 2020-02-19 13:39 | NUR ---
BLOOD TRANSFUSION STARTED AT THIS TIME. PT EDUCATION PROVIDED TO REPORT ANY ADVERSE REACTION OF TRANSFUSION-CHILLS, FEVER, BACK PAIN, HIVES, ITCHES. PT VERBALIZED UNDERSTANDING. WILL CONTINUE TO MONITOR
--- NOTE | 2020-02-19 13:55 | NUR ---
BLOOD TRANSFUSION ONGOING AT THIS TIME. VS, BP 123/66, HR 80, RR 18, T 98.0, SPO2 94%. NO C/O OF ANY ADVERSE REACTION OF TRANSFUSION, NO C/O OF (CHILLS, FEVER, BACK PAIN, HIVES, ITCHES). WILL CONTINUE TO MONITOR
--- NOTE | 2020-02-19 14:25 | NUR ---
BLOOD TRANSFUSION ONGOING AT THIS TIME. VS, BP 119/59, HR 77 RR 18, T 97.9, SPO2 96%. NO C/O OF ANY ADVERSE REACTION OF TRANSFUSION, NO C/O OF (CHILLS, FEVER, BACK PAIN, HIVES, ITCHES). WILL CONTINUE TO MONITOR
--- NOTE | 2020-02-19 15:30 | NUR ---
BLOOD TRANSFUSION ONGOING AT THIS TIME. VS, BP 123/74, HR 77 RR 18, T 98.4, SPO2 95%. NO C/O OF ANY ADVERSE REACTION OF TRANSFUSION, NO C/O OF (CHILLS, FEVER, BACK PAIN, HIVES, ITCHES). WILL CONTINUE TO MONITOR
--- NOTE | 2020-02-19 16:06 | NUR ---
JASPREET CARTY's DAUGHTER ([phone]) CALLED AND WAS UPDATED. WILL CONTINUE WITH PLAN OF CARE
--- NOTE | 2020-02-19 16:31 | NUR ---
BLOOD TRANSFUSION COMPLETED AT THIS TIME. VS, BP 129/59, HR 74 RR 18, T 98.2, SPO2 96%. NO C/O OF ANY ADVERSE REACTION OF TRANSFUSION, NO C/O OF (CHILLS, FEVER, BACK PAIN, HIVES, ITCHES). WILL CONTINUE TO MONITOR
--- NOTE | 2020-02-19 16:58 | NUR ---
PT TRANSPORTED TO [facility] BY BED AT THIS TIME BY AND CORNELIUS JUAREZ. BEDSIDE REPORT GIVEN TO NIGEL CAMILO FOR CONTINUITY OF CARE. Addendum: 02/19/20 at 1722 by HALIE SOTO RN THIS NOTES NOT INTENDED FOR THIS PT. USER ERROR
--- NOTE | 2020-02-19 18:39 | NUR ---
MS RN CLOSING NOTES PT RESTING IN BED AT THIS TIME. PT REMAINED STABLE THROUGHOUT SHIFT. PT KEPT CLEAN AND DRY. WOUND CARE PROVIDED. MEPILEX APPLIED TO SACRAL. ALL CARE, NEEDS, MEDICATION AND TREATMENT ADMINISTERED ANTICIPATED PER ORDER. ASPIRATION AND SAFETY PRECAUTION IN PLACE AND MAINTAINED AT ALL TIMES. BED IN LOWEST LOCKED POSITION, HOB ELEVATED, SIDE RAILS UP X 2, CALL LIGHT AND TABLE WITHIN REACH. WILL ENDORSE TO INFORMATION SECURITY ANALYST NURSE FOR MARIANELA
[2020-02-19 19:38] LABS: HEMOGLOBIN 8.6 g/dL (13.5-17.5)
--- NOTE | 2020-02-19 20:26 | NUR ---
TELE/RN OPENING NOTE Patient asleep in bed, A/O x1-2, citizen of [place] speaking only, on bedrest. Tele monitor reading sinus rhythm. No JVD. Tongue midline, no tracheal deviation. CRP <3seconds. Breathing even, unlabored, no signs of acute distress or SOB. On NC 2LPM, O2sat 95%. Skin warm, pink, dry appropriate for ethnicity. Wound dressing to right buttock clean and intact. IV site R hand 20g, patent and intact. IV site RFA 20g patent and intact. No signs of redness or infiltration. AV shunt noted in YOVANA, thrill and bruit (+). Abdomen small, round, non-tender. BS active. Patient is incontinent. Urine output clear, yellow. Bed in low position, wheels locked, side rails up x2, call light within reach.
[2020-02-20] VITALS: BP 123/66
[2020-02-20] MEDS: INSULIN REGULAR, HUMAN 100 UNIT/ML 3 ML VIAL SQ PRN (00:26)
[2020-02-20] MEDS: BLOOD SUGAR DIAGNOSTIC 1 EACH STRIP IN SCH ×4 (00:30→18:39)
[2020-02-20 04:00] VITALS: BP 123/50
--- NOTE | 2020-02-20 06:46 | NUR ---
TELE/RN CLOSING NOTE Patient asleep in bed, A/O x1-2, barbadian speaking only, on bedrest. Tele monitor reading sinus rhythm. Breathing even, unlabored, no signs of acute distress or SOB. On NC 2LPM, O2sat 94%. Skin warm, pink, dry appropriate for ethnicity. Wound dressing changed to right buttock clean and intact. IV site R hand 20g, patent and intact. IV site RFA 20g patent and intact. No signs of redness or infiltration. AV shunt noted in YOVANA, thrill and bruit (+). Patient is incontinent. Urine output clear, yellow. Bed in low position, wheels locked, side rails up x2, call light within reach.
[2020-02-20 08:00] VITALS: BP_SYST 128; BP_SYST 146; BP_DIAS 50; BP_DIAS 71
--- NOTE | 2020-02-20 08:00 | NUR ---
TELE/RN OPENING NOTE Patient asleep in bed, A/O x1-2, taiwanese speaking only, on bedrest. Tele monitor reading sinus rhythm. No JVD. Tongue midline, no tracheal deviation. CRP <3seconds. Breathing even, unlabored, no signs of acute distress or SOB. On NC 2LPM, O2sat 95%. Skin warm, pink, dry appropriate for ethnicity. Wound dressing to right buttock clean and intact. IV site R hand 20g, patent and intact. IV site RFA 20g patent and intact. No signs of redness or infiltration. AV shunt noted in YOVANA, thrill and bruit (+). Abdomen small, round, non-tender. BS active. Patient is incontinent. Urine output clear, yellow. Bed in low position, wheels locked, side rails up x2, call light within reach.
[2020-02-20] MEDS: VIT B CMPLX 3/FA/VIT C/BIOTIN 1 TAB TABLET PO SCH (09:21)
[2020-02-20] MEDS: PANTOPRAZOLE 40 MG VIAL IV SCH ×2 (09:21→17:00)
[2020-02-20] MEDS: SEVELAMER CARBONATE 800 MG TABLET PO SCH ×3 (09:21→18:00)
[2020-02-20] MEDS: ESCITALOPRAM OXALATE (10 MG) 10 MG TABLET PO SCH (09:21)
--- NOTE | 2020-02-20 09:22 | NUR ---
HELD NORVASC AND METOPROLOL TEMPORARILY-PT IS FOR HEMODIALYSIS TODAY
[2020-02-20] MEDS: AMLODIPINE BESYLATE 10 MG TABLET PO SCH (15:04)
[2020-02-20] MEDS: METOPROLOL SUCCINATE 50 MG TAB.SR.24H PO SCH (15:04)
[2020-02-20 16:00] VITALS: BP 137/75
--- NOTE | 2020-02-20 19:00 | NUR ---
DISCHARGED PT HOME WITH STABLE V/S WITH DME SUPPLIES ARRANGED BY THE AND [employer]AXI INSTRUCTOR BUS [facility]OL[facility] TO BE DELIVERED IN PT HOME.HEMODIALYSIS DONE TODAY WITH 500 ML OUTPUT. IV H/L REMOVED TO RT HAND AND RT FOREARM WITH NO BLEEDING NOTED. YOVANA AV SHUNT INTACT WITH CLEAN AND DRY DRESSING IN PLACE.
== END 2020-02-20 19:00 | disposition home health service (06) | DRG 871 ==
LOC: ER 08:44 → ICU 13:53 → TELE2 02-01 13:53 → MEDSG2 02-20 08:40
PROVIDERS: ADMIT Student in an Organized Health Care Education/Training Program; ATTEND Internal Medicine
PROC: 5A1D70Z Performance of Urinary Filtration, Intermittent, Less than 6 Hours Per Day (ICD-10-PCS; 2020-01-29)
PROC: XW13325 Transfusion of Convalescent Plasma (Nonautologous) into Peripheral Vein, Percutaneous Approach, New Technology Group 5 (ICD-10-PCS; 2020-02-03)
PROC: 30233N1 Transfusion of Nonautologous Red Blood Cells into Peripheral Vein, Percutaneous Approach (ICD-10-PCS; 2020-02-04)
PROC: 0DJ08ZZ Inspection of Upper Intestinal Tract, Via Natural or Artificial Opening Endoscopic (ICD-10-PCS; principal; 2020-02-18)
DX: A41.89 Other specified sepsis (principal); U07.1 COVID-19; J12.89 Other viral pneumonia; J96.01 Acute respiratory failure with hypoxia; N18.6 End stage renal disease; I21.A1 Myocardial infarction type 2; J15.9 Unspecified bacterial pneumonia; E87.1 Hypo-osmolality and hyponatremia; E87.2 Acidosis; I13.2 Hypertensive heart and chronic kidney disease with heart failure and with stage 5 chronic kidney disease, or end stage renal disease; Z68.1 Body mass index [BMI] 19.9 or less, adult; E44.0 Moderate protein-calorie malnutrition; E87.5 Hyperkalemia; K74.60 Unspecified cirrhosis of liver; Z99.2 Dependence on renal dialysis; D53.9 Nutritional anemia, unspecified; D63.8 Anemia in other chronic diseases classified elsewhere; E67.3 Hypervitaminosis D; E83.39 Other disorders of phosphorus metabolism; E83.52 Hypercalcemia; F17.210 Nicotine dependence, cigarettes, uncomplicated; Z83.3 Family history of diabetes mellitus; E88.09 Other disorders of plasma-protein metabolism, not elsewhere classified; E78.1 Pure hyperglyceridemia; I50.9 Heart failure, unspecified; N40.0 Benign prostatic hyperplasia without lower urinary tract symptoms; R73.9 Hyperglycemia, unspecified; K31.89 Other diseases of stomach and duodenum; K29.80 Duodenitis without bleeding; K26.9 Duodenal ulcer, unspecified as acute or chronic, without hemorrhage or perforation; K25.9 Gastric ulcer, unspecified as acute or chronic, without hemorrhage or perforation; I25.10 Atherosclerotic heart disease of native coronary artery without angina pectoris; R59.1 Generalized enlarged lymph nodes; K40.90 Unilateral inguinal hernia, without obstruction or gangrene, not specified as recurrent; T38.0X5A Adverse effect of glucocorticoids and synthetic analogues, initial encounter; Y92.89 Other specified places as the place of occurrence of the external cause; E83.9 Disorder of mineral metabolism, unspecified; R19.5 Other fecal abnormalities
CPT/HCPCS: 36415; 70450-TC; 70490-TC; 71045-TC; 71250-TC; 80048-TC; 80053-TC; 80061-TC; 80076-TC; 80202-TC; 82140-TC; 82164; 82232; 82272-TC; 82550-TC; 82728-TC; 82784; 82962-TC; 83540-TC; 83605-TC; 83615-TC; 83735-TC; 83880; 84100-TC; 84153-TC; 84154-TC; 84443-TC; 84484-TC; 85025-TC; 85027-TC; 85378-TC; 85396; 85730-TC; 86140-TC; 86300; 86334; 86706; 86850-TC; 87040-TC; 87081-TC; 87340; 90935-TC; 94799-TC; 97110-TC; 97112-TC; 97530-TC; A6403; C1751; C9113; G0378; J0692; J0885; J1815; J2704; J3370; J3490; J7030; J7040; J7050; J7060; J8540; P9016-BL; P9017-BL; U0003

== ENCOUNTER 2020-03-09 11:34 | Inpatient (IN) | payer MEDICARE, OTHER ==
[~2020-03-09] VITALS: Ht 165.1 cm; Wt 57.2 kg
[~2020-03-09 11:34] MED LIST changes: +ESCI10TA PO; +MIRT7.5T10 PO; +PANT40TA2 PO; +SEVE800T7 PO; -VIT1TABL44 PO; +VIT1TABL46 PO
--- NOTE | 2020-03-09 11:45 | NUR ---
PT LEONELA FROM HD. SENT FOR ABNORMAL LABS LOW HGB 6.6. VS CHECKED. AWAITING MD MILLER
[2020-03-09] MEDS ORDERED: SEVE800T7 PO (12:16)
[2020-03-09 12:26] LABS: BASOPHILS # (AUTO) 0.1 /CMM (0.0-0.2); BASOPHILS % (AUTO) 0.8 % (0.0-2.0); EOSINOPHILS % (AUTO) 5.2 % (0.0-6.0); HEMATOCRIT 23 % (39-51); HEMOGLOBIN 7.8 g/dL (13.5-17.5); LYMPHOCYTES # (AUTO) 1.6 /CMM (0.8-4.8); MEAN CORPUSCULAR HGB CONC 34 g/dl (31.0-36.0); MEAN CORPUSCULAR VOLUME 110 fL (80-96); MONOCYTES # (AUTO) 1.4 /CMM (0.1-1.30); MONOCYTES % (AUTO) 17.4 % (2.0-12.0); NEUTROPHILS # (AUTO) 4.4 /CMM (1.8-8.9); NEUTROPHILS % (AUTO) 56.6 % (43.0-81.0); PLATELET COUNT (AUTO) 121 /CMM (150-450); WHITE BLOOD COUNT (AUTO) 7.8 K/uL (4.3-11.0)
[2020-03-09 12:48] LABS: ALBUMIN 2.2 g/dL (3.4-5.0); BILIRUBIN,DIRECT 0.1 mg/dL (0.0-0.2); BILIRUBIN,TOTAL 0.4 mg/dL (0.2-1.0); CALCIUM, SERUM 9.1 mg/dL (8.5-10.1); CREATININE 2.8 mg/dL (0.6-1.3); POTASSIUM 4.2 mmol/L (3.5-5.1); TOTAL PROTEIN, SERUM 6.3 g/dL (6.4-8.2)
--- NOTE | 2020-03-09 13:45 | NUR ---
PAGED [facility].
--- NOTE | 2020-03-09 15:20 | NUR ---
received bed assignment. pt will go to 322[facility].
--- NOTE | 2020-03-09 16:10 | NUR ---
report given to padmini fernandez at [facility]
--- NOTE | 2020-03-09 16:33 | NUR ---
pt transferred to [facility]
--- NOTE | 2020-03-09 16:40 | NUR ---
MS/RN RECEIVED PATIENT RECEIVED PATIENT FROM ER NURSE. PATIENT IN STABLE CONDITION. RIGHT WRIST # 18 INTACT AND PATENT. PATIENT ON ROOM AIR, TOLERATING WELL. SAFETY MEASURES IN PLACE. WILL CONTINUE TO MONITOR AND ENSURE SAFETY.
[2020-03-09 16:45] VITALS: BP 129/58
--- NOTE | 2020-03-09 19:40 | NUR ---
MS RN NOTE: PATIENT RESTING IN BED, NO ACUTE DISTRESS NOTED. BREATHING EVEN AND UNLABORED, NO SOB NOTED. IV TO RIGHT WRIST IN PLACE. AV SHUNT TO YOVANA IN PLACE, NO BLEEDING NOTED. BED LOCKED AND IN LOWEST POSITION, CALL LIGHT IN REACH. WILL CONTINUE TO MONITOR.
--- NOTE | 2020-03-09 19:43 | NUR ---
MS/RN CLOSING NOTE PATIENT REMAINS IN STABLE CONDITION. A/O X3 ABLE TO VERBALIZE NEEDS, MALDIVIAN SPEAKING. PATIENT ON ROOM AIR, TOLERATING WELL. BREATHING EVEN, NON LABORED, NO SOB NOTED. RIGHT WRIST #18 HEP LOCK INTACT AND PATENT. SAFETY MEASURES IN PLACE. WILL ENDORSE TO CREATIVE SERVICES INTERN.
[2020-03-09 20:00] VITALS: BP 123/56
--- NOTE | 2020-03-09 22:45 | NUR ---
DIRECTOR OF ANALYTICS NOTE: NOTED THAT PATIENT STILL HAD NO ADMIT ORDERS. CONTACTED ON CHART, INFORMED THAT PATIENT WAS NOT HIS PATIENT. CONTACTED ENERGY SALES CONSULTANT MD FOR TONIGHT AND STATES THAT PATIENT SHOULD BE UNDER THE NEPHRO GROUP. ASKED PATIENT WHO IS HIS PRIMARY MD AND , DR. BAIG IS HIS PRIMARY. CALLED DR. BAIG EXCHANGE. RECEIVED CALL BACK FROM DR. BUSTOS WITH ADMIT ORDERS. ORDERS READ BACK AND VERIFIED, ORDERS NOTED AND CARRIED OUT. WILL CONTINUE TO MONITOR.
[2020-03-09] MEDS ORDERED: ONDANSETRON HCL/PF 4 MG/2 ML VIAL IV PRN (23:00)
[2020-03-09] MEDS ORDERED: ZOLPIDEM TARTRATE 5 MG TABLET PO PRN (23:00)
[2020-03-09] MEDS ORDERED: ACETAMINOPHEN 325 MG TABLET PO PRN (23:00)
[2020-03-10] VITALS: BP 139/68
[2020-03-10 04:00] VITALS: BP 122/53
--- NOTE | 2020-03-10 06:15 | NUR ---
BLOWER INSTALLER NOTE: PATIENT RESTING IN BED, NO ACUTE DISTRESS NOTED. BREATHING EVEN AND UNLABORED, NO SOB NOTED. IV TO RIGHT WRIST IN PLACE. AV SHUNT TO YOVANA IN PLACE, NO BLEEDING NOTED. BED LOCKED AND IN LOWEST POSITION, CALL LIGHT IN REACH. WILL ENDORSE TO DAY NURSE TO CONTINUE WITH PLAN OF CARE.
--- NOTE | 2020-03-10 07:45 | NUR ---
SHELTER SUPERVISOR OPENING NOTES BEDSIDE ENDORSEMENT DONE. PATIENT IS IN BED SLEEPING, ABLE TO BE AWAKENED. A/O X3, COOK ISLANDER-SPEAKING, UNDERSTANDS SOME CITIZEN OF [place] AND [place]. BREATHING EVEN AND UNLABORED, TOLERATING ROOM AIR. ON TELE MONITORING, READING OF SR, HR AT 80'S, NO CARDIAC DISTRESS NOTED. IV LINE ON RIGHT WRIST #18 INTACT AND PATENT; W/ YOVANA AV SHUNT INTACT. SAFETY PRECS IN PLACE: BED LOCKED AND ON LOWEST POSITION, SR UP X2, CALL LIGHT W/IN REACH. WILL CONTINUE TO MONITOR.
[2020-03-10 08:00] VITALS: BP 134/56
[2020-03-10 08:33] LABS: BASOPHILS # (AUTO) 0.1 /CMM (0.0-0.2); BASOPHILS % (AUTO) 1.5 % (0.0-2.0); EOSINOPHILS % (AUTO) 7.5 % (0.0-6.0); HEMATOCRIT 21 % (39-51); HEMOGLOBIN 7.6 g/dL (13.5-17.5); LYMPHOCYTES # (AUTO) 1.1 /CMM (0.8-4.8); LYMPHOCYTES % (AUTO) 17.6 % (20.0-44.0); MEAN CORPUSCULAR HGB CONC 37 g/dl (31.0-36.0); MEAN CORPUSCULAR VOLUME 107 fL (80-96); MONOCYTES # (AUTO) 1.2 /CMM (0.1-1.30); MONOCYTES % (AUTO) 17.9 % (2.0-12.0); NEUTROPHILS # (AUTO) 3.6 /CMM (1.8-8.9); NEUTROPHILS % (AUTO) 55.5 % (43.0-81.0); PLATELET COUNT (AUTO) 129 /CMM (150-450); WHITE BLOOD COUNT (AUTO) 6.5 K/uL (4.3-11.0)
[2020-03-10 08:45] LABS: RED BLOOD CELL COUNT(AUTO) 1.94 MIL/uL (4.5-6.0)
[2020-03-10] MEDS: SEVELAMER CARBONATE 800 MG TABLET PO SCH ×3 (09:11→18:39)
[2020-03-10] MEDS: ESCITALOPRAM OXALATE (10 MG) 10 MG TABLET PO SCH (09:11)
[2020-03-10] MEDS: VIT B CMPLX 3/FA/VIT C/BIOTIN 1 TAB TABLET PO SCH (09:11)
[2020-03-10] MEDS: AMLODIPINE BESYLATE 10 MG TABLET PO SCH (09:11)
[2020-03-10 12:27] LABS: CALCIUM, SERUM 9.3 mg/dL (8.5-10.1); PHOSPHORUS 5.6 mg/dL (2.5-4.9); POTASSIUM 4.7 mmol/L (3.5-5.1)
[2020-03-10 13:03] LABS: BAND % (MANUAL) 3 % (0.0-5.0); EOSINOPHILS % (MANUAL) 9 % (0-4); LYMPHOCYTES % (MANUAL) 20 % (16-48); MONOCYTES % (MANUAL) 12 % (0-11.0); NEUTROPHILS % (MANUAL) 56 (42-76)
--- NOTE | 2020-03-10 18:34 | NUR ---
RN NOTES CONSENTS OBTAINED FROM PATIENT FOR HEMODIALYSIS AND BLOOD TRANSFUSION.
--- NOTE | 2020-03-10 18:40 | NUR ---
RN NOTES INFORMED DR. BAIG ABOUT STANDING ORDER FOR BLOOD TRANSFUSION TO CLARIFY PARAMETERS, AWAITING RESPONSE. STANDING ORDER FOR BLOOD TRANSFUSION INPUTTED IN SYSTEM. TYPE AND SCREEN ALREADY DONE. NO INFO NOTED FOR BLOOD BANK ON PATIENT. DIALYSIS NURSE NELY AWARE.
--- NOTE | 2020-03-10 19:10 | NUR ---
MS RN CLOSING NOTES PATIENT IS IN BED RESTING, AWAKE AND VERBALLY RESPONSIVE A/O X3, [place] R[place]-SPEAKING, UNDERSTANDS SOME IVOR[place]. BREATHING EVEN AND UNLABORED, TOLERATING ROOM AIR. S/P HD TODAY. IV LINE ON RIGHT WRIST #18 INTACT AND PATENT; W/ YOVANA AV SHUNT INTACT. SAFETY PRECS MAINTAINED: BED LOCKED AND ON LOWEST POSITION, SR UP X2, CALL LIGHT W/IN REACH. ENDORSED TO BATCH DUMPER RN FOR MARIANELA.
--- NOTE | 2020-03-10 19:50 | NUR ---
PASTE MAKER NOTES RECEIVED PATIENT RESTING IN BED, NO ACUTE DISTRESS NOTED. BREATHING EVEN AND UNLABORED, NO SOB NOTED. IV TO RIGHT WRIST IN PLACE. AV SHUNT TO YOVANA IN PLACE, NO BLEEDING NOTED. HEMODIALYSIS ONGOING. SAFETY MEASURES INPLACE, BED LOCKED AND IN LOWEST POSITION, ASPIRATION PRECAUTION EMPHASIZED. CALL LIGHT IN REACH. ALL NEEDS ANTICIPATED. WILL CONTINUE TO MONITOR ACCORDINGLY.
[2020-03-10 20:00] VITALS: BP 129/52
--- NOTE | 2020-03-10 20:40 | NUR ---
RN NOTES STATUS POST HEMODIALYSIS NO OUTPUT PER DIALYSIS NURSE NIGEL MCKAY
[2020-03-10 20:56] VITALS: BP 129/52
--- NOTE | 2020-03-10 21:20 | NUR ---
RN NOTES FOR EXCISIONAL BIOPSY OF INGUINAL LYMPH NODE ORDERED, CONSENT SIGNED. PATIENT IS PLACED ON NPO EXCEPT MEDS ORDERED. DAUGHTER CARLOZ SANTANA ), AWARE OF THE PROCEDURE FOR TOMORROW.
[2020-03-11] MEDS ORDERED: ANESTHESIA TRAY IN PYXIS 1 EA TRAY MC ONE (06:59)
[2020-03-11] MEDS ORDERED: BACITRACIN 50000 UNITS/VIAL ONE (07:00)
[2020-03-11] MEDS ORDERED: BUPIVACAINE 0.5 % PF 150 MG/30 ML VIAL ONE (07:00)
[2020-03-11] MEDS ORDERED: LIDOCAINE 1% INJ 50 ML MDV IJ ONE ×2 (07:00→12:00)
--- NOTE | 2020-03-11 07:01 | NUR ---
RN NOTES PICKED UP BY OR STAFF, PATIENT IN STABLE CONDITION.
--- NOTE | 2020-03-11 07:02 | NUR ---
RN NOTES ALL NEEDS ATTENDED, WILL ENDORSE TO AM NURSE FOR CONTINUITY OF CARE.
[2020-03-11] MEDS ORDERED: LIDOCAINE 1%-EPI 1:100,000 20 ML VIAL ONE (07:11)
[2020-03-11] MEDS ORDERED: FENTANYL PF 100MCG/2ML AMPUL ONE (07:28)
--- NOTE | 2020-03-11 07:30 | NUR ---
MS/RN Opening note Patient in opeating room at start of shift.
[2020-03-11] MEDS: SEVELAMER CARBONATE 800 MG TABLET PO SCH ×3 (08:00→17:38)
[2020-03-11] MEDS: AMLODIPINE BESYLATE 10 MG TABLET PO SCH (08:51)
[2020-03-11] MEDS: VIT B CMPLX 3/FA/VIT C/BIOTIN 1 TAB TABLET PO SCH (08:51)
[2020-03-11] MEDS: ESCITALOPRAM OXALATE (10 MG) 10 MG TABLET PO SCH (08:51)
--- NOTE | 2020-03-11 10:43 | NUR ---
MS/RN Back from OR Patient back from operating room, S/P excisional biopsy of inguinal lymph node. Vital signs stable upon return, diet order resumed.
[2020-03-11 11:06] LABS: BASOPHILS # (AUTO) 0.1 /CMM (0.0-0.2); BASOPHILS % (AUTO) 1.1 % (0.0-2.0); EOSINOPHILS % (AUTO) 7.4 % (0.0-6.0); HEMATOCRIT 23 % (39-51); HEMOGLOBIN 8.3 g/dL (13.5-17.5); LYMPHOCYTES # (AUTO) 0.9 /CMM (0.8-4.8); LYMPHOCYTES % (AUTO) 14.3 % (20.0-44.0); MEAN CORPUSCULAR HGB CONC 36 g/dl (31.0-36.0); MEAN CORPUSCULAR VOLUME 108 fL (80-96); MONOCYTES # (AUTO) 1.1 /CMM (0.1-1.30); MONOCYTES % (AUTO) 16.8 % (2.0-12.0); NEUTROPHILS % (AUTO) 60.4 % (43.0-81.0); PLATELET COUNT (AUTO) 147 /CMM (150-450); RED BLOOD CELL COUNT(AUTO) 2.15 MIL/uL (4.5-6.0); WHITE BLOOD COUNT (AUTO) 6.6 K/uL (4.3-11.0)
[2020-03-11 12:36] LABS: CALCIUM, SERUM 9.7 mg/dL (8.5-10.1); CREATININE 3.8 mg/dL (0.6-1.3); POTASSIUM 4.4 mmol/L (3.5-5.1)
--- NOTE | 2020-03-11 13:00 | NUR ---
MS/RN S/B Dr Sky Seen by Dr Sky - patient to be consented for bone marrow biopsy, supplies to be collected and placed at bedside.
--- NOTE | 2020-03-11 15:26 | NUR ---
MS RN NOTES PREPARED EXIT CARE. PATIENT MEDICALLY STABLE. READY FOR DISCHARGE AFTER BONE MARROW BIOPSY.
[2020-03-11 16:00] VITALS: BP 143/82
--- NOTE | 2020-03-11 16:14 | NUR ---
MS/actuarial intern update Call received from patient's daughter Karely, updated as to plan of care and bone marrow biopsy later this afternoon. Stated that she would like to take her father home this evening no matter what time that would be. Will be able to provide transport. Addendum: 03/11/20 at 5343 by KELLI BRAND Karely
--- NOTE | 2020-03-11 18:31 | NUR ---
MS/RN End note Bone marrow biopsy completed at bedside, pressure dressing applied to both puncture sites. For discharge home this evening, exit care prepared, only needing to be printed. Will endorse to night warehouse manager.
[2020-03-11 19:10] LABS: BASOPHILS # (AUTO) 0.1 /CMM (0.0-0.2); MONOCYTES # (AUTO) 1.3 /CMM (0.1-1.30)
[2020-03-11 19:51] LABS: EOSINOPHILS % (AUTO) 7.8 % (0.0-6.0); LYMPHOCYTES % (AUTO) 12.6 % (20.0-44.0); MEAN CORPUSCULAR HGB CONC 36 g/dl (31.0-36.0); MEAN CORPUSCULAR VOLUME 108 fL (80-96); MONOCYTES % (AUTO) 16.3 % (2.0-12.0); NEUTROPHILS % (AUTO) 62.3 % (43.0-81.0); PLATELET COUNT (AUTO) 144 /CMM (150-450)
[2020-03-11 19:56] LABS: RED BLOOD CELL COUNT(AUTO) 1.88 MIL/uL (4.5-6.0)
[2020-03-11 20:07] LABS: HEMATOCRIT 20 % (39-51)
[2020-03-11 20:08] LABS: HEMOGLOBIN 7.3 g/dL (13.5-17.5)
--- NOTE | 2020-03-11 20:10 | NUR ---
RN NOTES-CHARGE NURSE RECEIVED A CALL FROM LAB REGARDING PT'S H&H OF 7.3.. INFORMED DR SARAN GROSSMAN REGARDING PT'S H&H . PERDR SARAN GROSSMAN , PT'S CAN STILL BE DISCHARGE, ORDER NOTED AND CARRIED OUT
--- NOTE | 2020-03-11 20:15 | NUR ---
MS RN NOTE NEW ORDER MANUAL DIFFERENTIAL NOTED, PATIENT IS DISCHARGING PER DAYTON CORONADO, CHARGE NURSE MADE AWARE ABOUT THE NEW ORDER. PER CHARGE NURSE, PATIENT IS OK TO DC WITHOUT THIS TEST BEING DONE, PER MD ORDER.
[2020-03-11 20:17] LABS: EOSINOPHILS % (MANUAL) 12 % (0-4); LYMPHOCYTES % (MANUAL) 12 % (16-48); MONOCYTES % (MANUAL) 15 % (0-11.0); NEUTROPHILS % (MANUAL) 61 (42-76)
--- NOTE | 2020-03-11 20:27 | NUR ---
GPS PRESETTER OPERATOR NOTE RECEIVED PATIENT IN STABLE CONDITION, NO C/O PAIN, NO ACUTE DISTRESS NOTED. DR. NOONAN, Mango ORDERED PATIENT TO BE DISCHARGE AFTER THE BIOPSY. PATIENT REQUESTING TO BE DISCHARGED WELL & STATED," I AM FEELING BETTER, I WANT TO GO HOME, MY DAUGHTER WILL PICK ME UP." PATIENT'S CURRENT HGB IS 7.[address] HCT 20[address] DR. SARAN TERESA MADE AWARE ABOUT CURRENT LABS & MD ADVISED TO PROCEED WITH PATIENT'S DISCHARGE. V/S 143/62, 88, 18, 97.6, 96% AT RA. HOME CARE INSTRUCTIONS & PAPERS WERE GIVEN TO THE PATIENT. BELONGINGS LIST REVIEWED & SIGNED BY THE PATIENT. DAUGHTER CARLOZ WAS NOTIFIED & ARRIVED TO ASSOCIATE SOFTWARE DEVELOPMENT ENGINEER THE PATIENT. PATIENT WAS DISCHARGED & ESCORTED TO THE LOBBY IN A WHEELCHAIR VIA ACLS PROTOCOL IN STABLE CONDITION.
== END 2020-03-12 00:22 | disposition home health service (06) | DRG 802 ==
LOC: ER 11:44 → TELE 16:04 → MED 03-10 14:01
PROC: 5A1D70Z Performance of Urinary Filtration, Intermittent, Less than 6 Hours Per Day (ICD-10-PCS; 2020-03-10)
PROC: 07BH0ZX Excision of Right Inguinal Lymphatic, Open Approach, Diagnostic (ICD-10-PCS; principal; 2020-03-11)
PROC: 07DR3ZX Extraction of Iliac Bone Marrow, Percutaneous Approach, Diagnostic (ICD-10-PCS; 2020-03-12)
DX: D62 Acute posthemorrhagic anemia (principal); N18.6 End stage renal disease; E44.0 Moderate protein-calorie malnutrition; E87.1 Hypo-osmolality and hyponatremia; I12.0 Hypertensive chronic kidney disease with stage 5 chronic kidney disease or end stage renal disease; E83.52 Hypercalcemia; R62.7 Adult failure to thrive; Z68.21 Body mass index [BMI] 21.0-21.9, adult; D69.6 Thrombocytopenia, unspecified; E11.22 Type 2 diabetes mellitus with diabetic chronic kidney disease; Z99.2 Dependence on renal dialysis; K74.60 Unspecified cirrhosis of liver; Z79.899 Other long term (current) drug therapy; Z91.018 Allergy to other foods; E67.3 Hypervitaminosis D; Z20.828 Contact with and (suspected) exposure to other viral communicable diseases; I25.2 Old myocardial infarction; E83.39 Other disorders of phosphorus metabolism; E87.5 Hyperkalemia; Z83.3 Family history of diabetes mellitus; Z87.891 Personal history of nicotine dependence; R59.1 Generalized enlarged lymph nodes; E78.1 Pure hyperglyceridemia
CPT/HCPCS: 36415; 71045-TC; 80048-TC; 80076-TC; 82962-TC; 83735-TC; 84100-TC; 85025-TC; 85610-TC; 85730-TC; 86706; 86850-TC; 87081-TC; 87340; 88305-TC; 88341; 88342; 90935-TC; 93307-TC; A6209; C9803; G0378; J0690; J2405; J2704; J3010; J3490

== ENCOUNTER 2020-03-23 08:02 | Outpatient (CLI) | payer MEDICARE, OTHER ==
[~2020-03-23 08:02] MED LIST changes: -METO25TA3 PO; -MIRT7.5T10 PO; -PANT40TA2 PO
== END 2020-03-23 23:59 | disposition home or self-care (01) ==
LOC: WOU 08:02
PROVIDERS: ATTEND Internal Medicine Hematology & Oncology
DX: Z45.2 Encounter for adjustment and management of vascular access device (principal); C83.30 Diffuse large B-cell lymphoma, unspecified site
CPT/HCPCS: 36569; C1751

== ENCOUNTER 2020-04-08 12:04 | Outpatient (CLI) | payer MEDICARE, OTHER ==
[2020-04-08 14:10] LABS: BASOPHILS # (AUTO) 0.2 /CMM (0.0-0.2); BASOPHILS % (AUTO) 0.9 % (0.0-2.0); EOSINOPHILS % (AUTO) 3.5 % (0.0-6.0); LYMPHOCYTES % (AUTO) 4.6 % (20.0-44.0); MEAN CORPUSCULAR HGB CONC 33 g/dl (31.0-36.0); MEAN CORPUSCULAR VOLUME 96 fL (80-96); MONOCYTES # (AUTO) 1.6 /CMM (0.1-1.30); NEUTROPHILS # (AUTO) 18.8 /CMM (1.8-8.9); PLATELET COUNT (AUTO) 152 /CMM (150-450); WHITE BLOOD COUNT (AUTO) 22.3 K/uL (4.3-11.0)
[2020-04-08 14:31] LABS: ALBUMIN 2.6 g/dL (3.4-5.0); BILIRUBIN,TOTAL 0.5 mg/dL (0.2-1.0); CALCIUM, SERUM 7.7 mg/dL (8.5-10.1); CREATININE 2.6 mg/dL (0.6-1.3); TOTAL PROTEIN, SERUM 6.2 g/dL (6.4-8.2)
[2020-04-08 15:17] LABS: RED BLOOD CELL COUNT(AUTO) 1.97 MIL/uL (4.5-6.0)
[2020-04-08 15:22] LABS: HEMATOCRIT 19 % (39-51); HEMOGLOBIN 6.3 g/dL (13.5-17.5)
[2020-04-08 19:27] LABS: BAND % (MANUAL) 8 % (0.0-5.0); EOSINOPHILS % (MANUAL) 1 % (0-4); LYMPHOCYTES % (MANUAL) 12 % (16-48); MONOCYTES % (MANUAL) 15 % (0-11.0); MYELOCYTES % 1 % (0-0); NEUTROPHILS % (MANUAL) 61 (42-76); REACTIVE LYMPHOCYTES 2 % (0-0)
== END 2020-04-08 23:59 | disposition home or self-care (01) ==
LOC: MRI 12:04
PROVIDERS: ATTEND Internal Medicine Hematology & Oncology
DX: C83.30 Diffuse large B-cell lymphoma, unspecified site (principal); C85.80 Other specified types of non-Hodgkin lymphoma, unspecified site; D72.829 Elevated white blood cell count, unspecified; E83.52 Hypercalcemia; R59.1 Generalized enlarged lymph nodes
CPT/HCPCS: 36415; 80053-TC; 85025-TC

== ENCOUNTER 2020-04-15 10:55 | Outpatient (CLI) | payer MEDICARE, OTHER | END 2020-04-15 23:59 | disposition home or self-care (01) | LOC: WOU 10:55 | PROVIDERS: ATTEND Surgery | DX: C88.4 Extranodal marginal zone B-cell lymphoma of mucosa-associated lymphoid tissue [MALT-lymphoma] (principal); N18.6 End stage renal disease; Z99.2 Dependence on renal dialysis; Z95.828 Presence of other vascular implants and grafts | CPT/HCPCS: G0463 ==

== ENCOUNTER 2020-04-18 09:57 | Outpatient (CLI) | payer MEDICARE, OTHER | END 2020-04-18 23:59 | disposition home or self-care (01) | LOC: ER 09:57 → LAB 09:57 | PROVIDERS: ATTEND Internal Medicine Hematology & Oncology | DX: Z45.2 Encounter for adjustment and management of vascular access device (principal); C83.30 Diffuse large B-cell lymphoma, unspecified site | CPT/HCPCS: 36569; C1751 ==

== ENCOUNTER 2020-05-04 17:21 | Inpatient (IN) | payer MEDICARE, OTHER ==
[~2020-05-04] VITALS: Ht 170.2 cm; Wt 53.1 kg
--- NOTE | 2020-05-04 18:00 | NUR ---
BIB Daughter From Home "Sent here by my PMD for abnormal Blood test hgb7. On room air, breathing evenly and unlabored. Connected to the monitor and pulse ox. kept comfortable, will continue to monitor accordingly.
--- NOTE | 2020-05-04 18:26 | NUR ---
IV access initiated and blood drawned and sent to lab
[2020-05-04 18:27] LABS: BASOPHILS # (AUTO) 0.1 /CMM (0.0-0.2); BASOPHILS % (AUTO) 0.8 % (0.0-2.0); EOSINOPHILS % (AUTO) 3.2 % (0.0-6.0); LYMPHOCYTES # (AUTO) 1.2 /CMM (0.8-4.8); LYMPHOCYTES % (AUTO) 7.1 % (20.0-44.0); MEAN CORPUSCULAR HGB CONC 33 g/dl (31.0-36.0); MEAN CORPUSCULAR VOLUME 103 fL (80-96); MONOCYTES # (AUTO) 0.8 /CMM (0.1-1.30); NEUTROPHILS # (AUTO) 13.8 /CMM (1.8-8.9); NEUTROPHILS % (AUTO) 83.9 % (43.0-81.0); PLATELET COUNT (AUTO) 190 /CMM (150-450); WHITE BLOOD COUNT (AUTO) 16.5 K/uL (4.3-11.0)
[2020-05-04 18:46] LABS: HEMATOCRIT 19 % (39-51); HEMOGLOBIN 6.1 g/dL (13.5-17.5)
[2020-05-04 19:09] LABS: CALCIUM, SERUM 8.6 mg/dL (8.5-10.1); CREATININE 5.6 mg/dL (0.6-1.3); POTASSIUM 4.5 mmol/L (3.5-5.1)
--- NOTE | 2020-05-04 19:19 | NUR ---
report given to ed rn to continue care
--- NOTE | 2020-05-04 19:20 | NUR ---
ASSUMED CARE. RECEIVED REPORT FROM AM SHIFT NIGEL CORREA. PT AAOX4, NO ACUTE DISTRESS NOTED, RESP EVEN AND UNLABORED. PT ON 02@2L/NC. PT DENIES PAIN OR DISCOMFORT AT THIS TIME. PT ON CARDIAC MONITORING, CONTINUOUS POX. CALL LIGHT WITHIN REACH. WILL CONTINUE TO MONITOR PT CLOSELY.
[2020-05-04] MEDS ORDERED: VANCOMYCIN 1 GM in IV D5W 250 ML IV ONE (19:30)
[2020-05-04] MEDS ORDERED: CEFEPIME 1 GM in IV D5W 50 ML IV ONE (19:30)
[2020-05-04] MEDS ORDERED: CEFEPIME 1 GM VIAL ONE (19:51)
[2020-05-04] MEDS ORDERED: VANCOMYCIN 1 GM VIAL ONE (19:52)
--- NOTE | 2020-05-04 20:06 | NUR ---
COVID SWAB COLLECTED AND SENT TO LAB.
[2020-05-04 20:29] LABS: BAND % (MANUAL) 3 % (0.0-5.0); EOSINOPHILS % (MANUAL) 3 % (0-4); LYMPHOCYTES % (MANUAL) 8 % (16-48); MONOCYTES % (MANUAL) 6 % (0-11.0); MYELOCYTES % 2 % (0-0); NEUTROPHILS % (MANUAL) 78 (42-76)
--- NOTE | 2020-05-04 20:43 | NUR ---
ER TALKING TO PT REGARDING PT.
--- NOTE | 2020-05-04 21:24 | NUR ---
NOTED PT SITTING UP IN BED WITH LABORED BREATHING, ACCESSORY MUSCLE USE, O2 SAT 86% ON RA. PLACE PT ON 100%NRB. PT VERY RESTLESS, ANXIOUS. ER MD MADE AWARE. PT REMAINS ON CARDIAC MONITORING, CONTINUOUS POX. WILL MONITOR PT CLOSELY.
--- NOTE | 2020-05-04 21:24 | NUR ---
Note felicityjanae in ED - 05/04/20 at 2149 by ANNMARIE NOTED PT SITTING UP IN BED WITH LABORED BREATHING, ACCESSORY MUSCLE USE, O2 SAT 86% ON RA. PLAE PT ON 100%NRB. NANCI GAINES MADE AWARE. PT REMAINS ON CARDIAC MONITORING, CONTINUOUS POX. WILL MONITOR PT CLOSELY.
--- NOTE | 2020-05-04 21:28 | NUR ---
ER MD AT BEDSIDE TO RE-EVAL PT WITH ORDERS RECEVED. WILL CARRY OUT ORDERS.
--- NOTE | 2020-05-04 21:29 | NUR ---
RT PAGED TO PLACE PT ON HIGH FLOW O2 PER ER MD ORDER.
[2020-05-04] MEDS ORDERED: FUROSEMIDE 40 MG/4 ML VIAL ONE (21:30)
[2020-05-04] MEDS ORDERED: FUROSEMIDE 40 MG/4 ML VIAL IV ONE (21:30)
[2020-05-04] MEDS ORDERED: NITROGLYCERIN 0.4 MG/TAB BOTTLE SL ONE (21:30)
--- NOTE | 2020-05-04 21:31 | NUR ---
ORDER CHAGED TO PLACE PT ON BIPAP. RT AT BEDSIDE PLACE PT ON BIPAP 15/5, RATE-20, FIO2 100%. WILL CONTINUE TO MONITOR PT CLOSELY.
--- NOTE | 2020-05-04 21:34 | NUR ---
PT MEDICATED ORDERED BY ER .
--- NOTE | 2020-05-04 21:41 | NUR ---
REPEAT CXR DONE AT BEDSIDE
--- NOTE | 2020-05-04 21:46 | NUR ---
CALLED [facility] FOR STAT X RAY READ
--- NOTE | 2020-05-04 21:51 | NUR ---
CALL FROM LAB. RAPID COVID NEGATIVE.
[2020-05-04] MEDS ORDERED: NTG 50 MG/D5W250 ML BOTTL 250 ML IV PRN (22:00)
--- NOTE | 2020-05-04 22:02 | NUR ---
PT TOLERATING CURRENT BIPAP SETTING. RT REMIANS AT BEDSIDE. WILL CONTINUE TO MONITOR PT CLOSELY.
[2020-05-04] MEDS ORDERED: NTG 50 MG/D5W250 ML BOTTL 250 ML IV ONE (22:04)
--- NOTE | 2020-05-04 22:10 | NUR ---
NITRO DRIP STARTED A5 50MCG/MIN PER ER MD ORDER. BP 153/77, HR-108, RR-24, 02 SAT 100% ON CURRENT BIPAP SETTING. PT APPEARS MORE COMFORTABLE, NO ACUTE DISTRESS NOTED, RESP EVEN AND UNLABORED. PT DENIES PAIN OR DISCOMFORT AT THIS TIME. WILL CONTINUE TO MONITOR PT CLOSELY.
--- NOTE | 2020-05-04 22:39 | NUR ---
SANDIE MOORE AT BEDSIDE TO PAUL TERRELL
--- NOTE | 2020-05-04 22:46 | NUR ---
PT VERBALIZE RELIEF OF SOB. DENIES PAIN OR DISCOMFORT AT THIS TIME.
[2020-05-04] MEDS ORDERED: ACETAMINOPHEN 650 MG/SUPP.RECT RC PRN (23:00)
[2020-05-04] MEDS ORDERED: ACETAMINOPHEN 325 MG TABLET PO PRN (23:00)
--- NOTE | 2020-05-04 23:06 | NUR ---
HOLD BLOOD TRANSFUSION FOR NOW PER SANDIE AC [facility]- REGARDING.
--- NOTE | 2020-05-04 23:25 | NUR ---
PT ASLEEP, NO ACUTE DISTRESS NOTED, RESP EVEN AND UNLABORED. CALL LIGHT WITHIN REACH. WILL CONTINUE TO MONITOR PT CLOSELY.
[2020-05-04] MEDS ORDERED: ALBUTEROL FS 2.5 MG/3 ML VIAL.NEB NEB PRN (23:30)
[2020-05-04 23:57] LABS: ABG BASE EXCESS -4.7 mmol/L; ABG PCO2 32.1 mmHg (35.0-45.0); ABG PH 7.404 (7.350-7.450); ABG PO2 323.9 mmHg (75.0-100.0); COHb 0.9 % (0.5-1.5); MetHb 0.4 % (0.0-1.5); O2Hb 96.7 % (94.0-97.0); SITE, ABG Right Radial
[2020-05-05] VITALS (13 sets, daily range): BP systolic 124–155; BP diastolic 57–78
[2020-05-05] MEDS ORDERED: EPOETIN ALFA (10,000 UNIT) 10,000 UNIT/ML VIAL ONE (00:59)
[2020-05-05] MEDS: EPOETIN ALFA (10,000 UNIT) 10,000 UNIT/ML VIAL SQ SCH ×2 (01:11→15:39)
--- NOTE | 2020-05-05 04:02 | NUR ---
PT AAOX4 NO ACUTE DISTRESS NOTED, RESP EVEN AND UNLABORED. PT DENIES PAIN OR DISCOMFORT AT THIS TIME. CALL LIGHT WITHIN REACH. WILL CONTINUE TO MONITOR PT CLOSELY.
--- NOTE | 2020-05-05 04:36 | NUR ---
PER SANDIE MA [facility]- OK TO TITRATE PT OFF BIPAP AND NITRO DRIP AND OK TO ADMIT PT TO ICU. RT PAGED.
--- NOTE | 2020-05-05 04:50 | NUR ---
PT OFF BIPAP BY RT. PLACE PT ON 5L/NC. NITRO DRIP DECREASED TO 30MCG/MIN. WILL CLOSELY MONITOR PT. CALL LIGHT WITHIN REACH.
--- NOTE | 2020-05-05 05:27 | NUR ---
NITRO DRIP DECREASED TO 10MCG/MIN. PT ASLEEP, NO ACUTE DISTRESS NOTED, RESP EVEN AND UNLABORED. CALL LIGHT WITHIN REACH.
--- NOTE | 2020-05-05 05:49 | NUR ---
PT OFF NITRO DRIP AT THIS TIME. WILL CONTINUE TO MONITOR PT CLOSELY. SANDIE AC [facility]- MADE AWARE.
--- NOTE | 2020-05-05 06:07 | NUR ---
REPORT CALLED TO ACCOUNTS RECEIVABLE ASSOCIATENIGEL HEARD. WILL TRANSPORT PT VIA ACLS PROTOCOL TO ROOM 102-1.
--- NOTE | 2020-05-05 06:33 | NUR ---
ADMIT NOTE ADMITTED PATIENT FROM ER TO ROOM 102 VIA [facility]. PATIENT IS A/OX4, ABLE TO VERBALIZE NEEDS. DIVEHI SPEAKING WITH MINIMAL LUXEMBOURGISH. ON O2 5LPM VIA NASAL CANNULA. NO SOB OR ANY RESPIRATORY DISTRESS. SAFELY TRANSFERRED FROM [facility] TO BED. TELE MONITOR ON, SR. SKIN IS INTACT. NOTED WITH LEFT UPPER ARM FISTULA SHUNT, AND PORTACATH ON LEFT CHEST WALL. WITH IV ACCESS ON RGA #18 PATENT AND INTACT. SAFETY MEASURES IN PLACE. BED LOCKED AND IN LOWEST POSITION. CALL LIGHT WITHIN REACH. WILL ENDORSE TO ONCOMING SHIFT FOR CONTINUITY OF ADMISSION. Addendum: 05/05/20 at 0659 by AMALIA SETH RN VITAL SIGNS CHECKED, TEMP 98.5, HR 93, R 20, O2 SAT 100%, BP 141/52.
--- NOTE | 2020-05-05 07:00 | NUR ---
RN OPENING NOTES RECEIVED PT AWAKE, A/O X4. ABLE TO VERBALIZE NEEDS. SLOVENIAN SPEAKING WITH MINIMAL YAKUT. ON O2 @5LPM VIA NC, SATURATION @99%. NO SOB OR ANY RESPIRATORY DISTRESS. TELE MONITOR SHOWS SR. SKIN IS INTACT. NOTED LEFT UPPER ARM FISTULA SHUNT AND PORTACATH ON LEFT CHEST WALL. IV ACCESS ON R FA #18 INTACT, PATENT AND FLUSHED. SAFETY MEASURES IN PLACE. CALL LIGHT WITHIN REACH. BED LOCKED AND IN LOWEST POSITION. WILL CONTINUE TO MONITOR.
[2020-05-05] MEDS ORDERED: VANCOMYCIN 500 MG in IV D5W 100 ML IV PRN (07:30)
[2020-05-05 07:33] LABS: BASOPHILS # (AUTO) 0.1 /CMM (0.0-0.2); BASOPHILS % (AUTO) 0.4 % (0.0-2.0); EOSINOPHILS % (AUTO) 2.8 % (0.0-6.0); LYMPHOCYTES # (AUTO) 0.6 /CMM (0.8-4.8); LYMPHOCYTES % (AUTO) 3.6 % (20.0-44.0); MEAN CORPUSCULAR HGB CONC 33 g/dl (31.0-36.0); MEAN CORPUSCULAR VOLUME 103 fL (80-96); MONOCYTES # (AUTO) 0.4 /CMM (0.1-1.30); MONOCYTES % (AUTO) 2.5 % (2.0-12.0); NEUTROPHILS # (AUTO) 15.8 /CMM (1.8-8.9); NEUTROPHILS % (AUTO) 90.7 % (43.0-81.0); PLATELET COUNT (AUTO) 172 /CMM (150-450); WHITE BLOOD COUNT (AUTO) 17.4 K/uL (4.3-11.0)
[2020-05-05 07:35] LABS: RED BLOOD CELL COUNT(AUTO) 1.61 MIL/uL (4.5-6.0)
[2020-05-05 07:38] LABS: HEMOGLOBIN 5.6 g/dL (13.5-17.5)
[2020-05-05 07:39] LABS: HEMATOCRIT 17 % (39-51)
[2020-05-05 08:28] LABS: ALBUMIN 2.8 g/dL (3.4-5.0); BILIRUBIN,TOTAL 0.5 mg/dL (0.2-1.0); CALCIUM, SERUM 8.5 mg/dL (8.5-10.1); PHOSPHORUS 6.8 mg/dL (2.5-4.9); POTASSIUM 4.9 mmol/L (3.5-5.1); TOTAL PROTEIN, SERUM 6.2 g/dL (6.4-8.2)
[2020-05-05] MEDS: AMLODIPINE BESYLATE 10 MG TABLET PO SCH (09:00)
[2020-05-05] MEDS: ESCITALOPRAM OXALATE (10 MG) 10 MG TABLET PO SCH (09:42)
[2020-05-05] MEDS: SEVELAMER CARBONATE 800 MG TABLET PO SCH ×3 (09:42→17:40)
[2020-05-05] MEDS: VIT B CMPLX 3/FA/VIT C/BIOTIN 1 TAB TABLET PO SCH (09:43)
[2020-05-05 11:01] LABS: BAND % (MANUAL) 12 % (0.0-5.0); EOSINOPHILS % (MANUAL) 1 % (0-4); LYMPHOCYTES % (MANUAL) 2 % (16-48); MONOCYTES % (MANUAL) 2 % (0-11.0); NEUTROPHILS % (MANUAL) 83 (42-76)
--- NOTE | 2020-05-05 15:35 | NUR ---
RN NOTES PT STARTED HD. BP 124/57. 1 UNIT PRBC GIVEN WITH HD. NO TRANSFUSION REACTION NOTED. PT IN STABLE CONDITION. EPOGEN GIVEN WITH HD.
[2020-05-05] MEDS ORDERED: diphenhydrAMINE HCL 50 MG/ML VIAL IV ONE (16:30)
[2020-05-05] MEDS ORDERED: ACETAMINOPHEN 325 MG TABLET PO ONE (16:30)
--- NOTE | 2020-05-05 16:50 | NUR ---
RN NOTES HD DONE. BP OF 142/62. NOT IN DISTRESS. 1800ML OUTPUT. REPEAT CBC ORDERED.
[2020-05-05] MEDS ORDERED: VANCOMYCIN 1 GM in IV D5W 250ml IV ONE (17:30)
--- NOTE | 2020-05-05 18:45 | NUR ---
RN CLOSING NOTES PT RESTING IN BED. NO SOB OR ANY RESPIRATORY DISTRESS. TELE MONITOR SHOWS SR. SKIN IS INTACT. IV ACCESS INTACT, PATENT AND FLUSHED. HD DONE, 1800ML OUTPUT. 1 UNIT PRBC GIVEN WITH HD. NEEDS ATTENTED. NO SIGNIFICANT CHANGES. SAFETY MEASURES IN PLACE. CALL LIGHT WITHIN REACH. BED LOCKED AND IN LOWEST POSITION. WILL ENDORSE TO NIGHT NURSE FOR MARIANELA.
[2020-05-05 19:07] LABS: BASOPHILS # (AUTO) 0.1 /CMM (0.0-0.2); BASOPHILS % (AUTO) 0.5 % (0.0-2.0); EOSINOPHILS % (AUTO) 4.7 % (0.0-6.0); LYMPHOCYTES # (AUTO) 0.6 /CMM (0.8-4.8); LYMPHOCYTES % (AUTO) 4.9 % (20.0-44.0); MEAN CORPUSCULAR HGB CONC 33 g/dl (31.0-36.0); MEAN CORPUSCULAR VOLUME 95 fL (80-96); MONOCYTES # (AUTO) 0.6 /CMM (0.1-1.30); MONOCYTES % (AUTO) 5.1 % (2.0-12.0); NEUTROPHILS # (AUTO) 10.5 /CMM (1.8-8.9); NEUTROPHILS % (AUTO) 84.8 % (43.0-81.0); PLATELET COUNT (AUTO) 153 /CMM (150-450); RED BLOOD CELL COUNT(AUTO) 2.16 MIL/uL (4.5-6.0); WHITE BLOOD COUNT (AUTO) 12.3 K/uL (4.3-11.0)
--- NOTE | 2020-05-05 19:20 | NUR ---
RN OPENING NOTES: RECEIVED PT A/OX4 IN BED RESTING COMFORTABLY. PATIENT IN NO S/SX OF ACUTE DISTRESS AT THIS TIME. NO SOB NOTED. PATIENT'S BREATHING IS EVEN AND UNLABORED. PATIENT IS ON 4L OF OXYGEN VIA NC; TOLERATING WELL. PATIENT ON TELE MONITORING READING SINUS RHYTHM AT THE TIME OF RECEIVED. PATIENT ON RENAL STANDARD DIET. NOTED IV SITE ON L FA #18;PATENT, INTACT AND FLUSHING WELL; NO S/S OF INFECTION OR INFILTRATION. PT ALSO HAS L UA AV SHUNT AND L CW P CATH BOTH SECURED AND INTACT. SAFETY MEASURES HAVE BEEN PROVIDED AND IMPLEMENTED. PATIENT BED ALARM IS ON. HEAD OF BED ELEVATED. BED IS LOCKED, IN LOWEST POSITION AND SIDE RAILS UP. CALL LIGHT WITHIN REACH OF THE PATIENT. APPLICABLE ISOLATION PRECAUTIONS IN PLACE. WILL CONTINUE TO MONITOR AND REASSESS FOR ANY CHANGES AND WILL CARRY OUT ANY ONGOING AND ACTIVE MD ORDER.
--- NOTE | 2020-05-05 19:40 | NUR ---
RN NOTES RECEIVED CALL FROM LAB, S/W RADHA,RECEIVED CRITICAL LAB HGB: 6.8 AND HCT 21 WILL INFORM AUGUSTIN GAINES. Addendum: 05/05/20 at 1955 by PRICILLA WING RN COMMUNICATED WITH AUGUSTIN GAINES AND ENDORSED CRITICAL LAB, AUGUSTIN GAINES ORDERED TO TRANSFUSE 1 BAG OF PRBC. WILL CARRY OUT ORDERED. JEWEL STAKER MADE AWARE.
[2020-05-05 19:41] LABS: HEMOGLOBIN 6.8 g/dL (13.5-17.5)
[2020-05-05 19:42] LABS: HEMATOCRIT 21 % (39-51)
--- NOTE | 2020-05-05 20:05 | NUR ---
RN NOTES PATIENT'S FAMILY CALLED TO GET UPDATES. SPOKE WITH CARLOZ, PROVIDED GENERAL UPDATES ABOUT PT'S CONDITION. ADVISED PT'S RELATIVE TO CALLBACK IN THE MORNING TO TALK TO MD FOR MORE SPECIFIC INFO ABOUT TREATMENT PLAN. ASSURED PATIENT RELATIVE THAT WILL KEEP THEM POSTED FOR ANY SUDDEN CHANGES TO PT'S CONDITION. FAMILY VERY THANKFUL ABOUT CARE BEING PROVIDED TO THE PATIENT. RN ACKNOWLEDGED.
[2020-05-05] MEDS: CEFEPIME 1 GM in IV D5W 50 ML IV SCH (20:33)
--- NOTE | 2020-05-05 21:15 | NUR ---
RN NOTES TRANSFUSED 1 PRBC ORDERED AND ADMINISTERED PER PROTOCOL. INITIAL VITAL SIGNS TAKEN; WNL. WILL CONTINUE TO MONITOR FOR ANY BLOOD TRANSFUSION REACTION AND ADDRESS NEEDED WELDER SETTER ELECTRON BEAM MACHINE MADE AWARE. Addendum: 05/06/20 at 0041 by PRICILLA WING RN ENDED INFUSION AT 0015, NO TRANSFUSION REACTION NOTED. VITAL SIGNS WNL. WELDER SETTER ELECTRON BEAM MACHINE MADE AWARE. WILL CONTINUE TO MONITOR AND REASSESS FOR ANY TRANSFUSION REACTION POST PROCEDURE.
[2020-05-05 21:42] LABS: BAND % (MANUAL) 7 % (0.0-5.0); EOSINOPHILS % (MANUAL) 5 % (0-4); LYMPHOCYTES % (MANUAL) 10 % (16-48); MONOCYTES % (MANUAL) 7 % (0-11.0); MYELOCYTES % 1 % (0-0); NEUTROPHILS % (MANUAL) 70 (42-76)
--- NOTE | 2020-05-05 23:00 | NUR ---
RN NOTES PATIENT REMAINS IN NO ACUTE RESPIRATORY DISTRESS AT THIS TIME, NO CHANGES TO CONDITION/STATUS. HARVEST WORKER WELL AWARE. WILL CONTINUE TO MONITOR AND REASSESS FOR ANY CHANGES THROUGHOUT THE SHIFT
[2020-05-06] VITALS (7 sets, daily range): BP systolic 103–147; BP diastolic 54–69
--- NOTE | 2020-05-06 03:00 | NUR ---
RN NOTES NO CHANGES IN PATIENT CONDITION AT THIS TIME PATIENT VITALS STABLE, NO SIGNS OF ACUTE RESPIRATORY DISTRESS. PATIENT STILL IN BED SLEEPING COMFORTABLY. NO COMPLAINTS OF PAIN OR ANY DISCOMFORT AT THIS TIME. WILL CONTINUE TO MONITOR AND REASSESS FOR ANY CHANGES THROUGHOUT THE SHIFT.
--- NOTE | 2020-05-06 06:40 | NUR ---
RN CLOSING NOTE: PATIENT REMAINS IN ROOM IN NO SIGNS OF RESPIRATORY DISTRESS. SAFETY MEASURES IMPLEMENTED, BED IN LOWEST POSITION, LOCKED, SIDE RAILS UP, CALL LIGHT WITHIN REACH. ALL NEEDS AND ORDERS ADDRESSED DURING THE SHIFT. IV ACCESS MAINTAINED INTACT, SECURED AND FLUSHING WELL. ALL DUE MEDS GIVEN ORDERED & SCHEDULED ; PATIENT TOLERATED WELL. PATIENT KEPT CLEAN AND COMFORTABLE WITHIN THE SHIFT. PATIENT ENDORSED TO INCOMING SHIFT RN WITH STABLE VITAL SIGN AND FOR CONTINUITY OF CARE.
[2020-05-06 07:05] LABS: BASOPHILS # (AUTO) 0.1 /CMM (0.0-0.2); BASOPHILS % (AUTO) 0.7 % (0.0-2.0); EOSINOPHILS % (AUTO) 5.6 % (0.0-6.0); HEMATOCRIT 24 % (39-51); HEMOGLOBIN 8.1 g/dL (13.5-17.5); LYMPHOCYTES # (AUTO) 0.5 /CMM (0.8-4.8); LYMPHOCYTES % (AUTO) 4.3 % (20.0-44.0); MEAN CORPUSCULAR HGB CONC 34 g/dl (31.0-36.0); MEAN CORPUSCULAR VOLUME 91 fL (80-96); MONOCYTES # (AUTO) 0.6 /CMM (0.1-1.30); NEUTROPHILS # (AUTO) 9.4 /CMM (1.8-8.9); NEUTROPHILS % (AUTO) 84.4 % (43.0-81.0); PLATELET COUNT (AUTO) 106 /CMM (150-450); RED BLOOD CELL COUNT(AUTO) 2.61 MIL/uL (4.5-6.0); WHITE BLOOD COUNT (AUTO) 11.1 K/uL (4.3-11.0)
--- NOTE | 2020-05-06 07:30 | NUR ---
TELE/RN OPENING NOTE Received patient awake in bed, A&O x 4. No complaints of pain/discomfort at this time. Breathing even and non-labored on 5L oxygen via NC, saturating at 95-96%. No respiratory or cardiac distress noted. On tele monitor reading SR 85. IV access noted on LFA #18, patent and intact, and flushing well. YOVANA AV shunt noted, L CW PC in place. Bed locked to its lowest position, side rails x 2 up, call light in hand. Will continue with current medical management.
[2020-05-06 07:33] LABS: CALCIUM, SERUM 8.1 mg/dL (8.5-10.1); CREATININE 4.6 mg/dL (0.6-1.3)
[2020-05-06] MEDS: SEVELAMER CARBONATE 800 MG TABLET PO SCH ×3 (08:14→17:03)
[2020-05-06] MEDS: ESCITALOPRAM OXALATE (10 MG) 10 MG TABLET PO SCH (08:14)
[2020-05-06] MEDS: AMLODIPINE BESYLATE 10 MG TABLET PO SCH (08:14)
[2020-05-06] MEDS: VIT B CMPLX 3/FA/VIT C/BIOTIN 1 TAB TABLET PO SCH (08:14)
--- NOTE | 2020-05-06 09:00 | NUR ---
TELE/RN NOTE Patient started on HD. Patient appears well and comfortable, no acute distress noted.
--- NOTE | 2020-05-06 10:45 | NUR ---
TELE/RN NOTE Patient saturating at 89-90% on 5L oxygen via NC, switched to 10 L via face mask. No respiratory distress noted, currently saturating at 91%, will continue to monitor. Addendum: 05/06/20 at 1531 by LUCAS ELW RN MD ALYSON VIDES
--- NOTE | 2020-05-06 11:00 | NUR ---
TELE/RN NOTE Patient finished HD, 2.6 L out. BP 127/56, HR 81, SPO2 93% on 10L oxygen via face mask, RR 18, T 97. Patient resting in bed, easily arousable to tactile and verbal stimulation.
[2020-05-06 12:25] LABS: BAND % (MANUAL) 2 % (0.0-5.0); EOSINOPHILS % (MANUAL) 2 % (0-4); LYMPHOCYTES % (MANUAL) 8 % (16-48); MONOCYTES % (MANUAL) 2 % (0-11.0); NEUTROPHILS % (MANUAL) 86 (42-76)
--- NOTE | 2020-05-06 14:40 | NUR ---
TELE/RN NOTE RT switched patient's 10 L oxygen via face mask to 15 L oxygen via non-rebreather mask. Currently saturating to 93-94%. Patient resting in bed with no s/s of acute distress.
--- NOTE | 2020-05-06 18:29 | NUR ---
TELE/RN CLOSING NOTE Patient awake in bed, A&O x 4. All needs met and attended to. No complaints of pain/discomfort at this time. Breathing even and non-labored on 15L oxygen via NRB, saturating at 93-96%. No respiratory or cardiac distress noted. On tele monitor reading SR 96. IV access noted on LFA #18, patent and intact, and flushing well. YOVANA AV shunt noted, L CW PC in place. Fall precautions maintained. Will endorse to film editor nurse.
--- NOTE | 2020-05-06 19:30 | NUR ---
RN OPENING NOTES: RECEIVED PT A/OX4 IN BED RESTING COMFORTABLY. PATIENT IN NO S/SX OF ACUTE DISTRESS AT THIS TIME. NO SOB NOTED. PATIENT'S BREATHING IS EVEN AND UNLABORED. PATIENT IS ON 15L OF OXYGEN VIA NRB MASKS; TOLERATING WELL. PATIENT ON TELE MONITORING READING SINUS RHYTHM WITH A HR OF 97 AT THE TIME OF RECEIVED. PATIENT ON RENAL STANDARD DIET. NOTED IV SITE ON L FA #18;PATENT, INTACT AND FLUSHING WELL; NO S/S OF INFECTION OR INFILTRATION. PT ALSO HAS L UA AV SHUNT AND L CW P CATH BOTH SECURED AND INTACT. SAFETY MEASURES HAVE BEEN PROVIDED AND IMPLEMENTED. PATIENT BED ALARM IS ON. HEAD OF BED ELEVATED. BED IS LOCKED, IN LOWEST POSITION AND SIDE RAILS UP. CALL LIGHT WITHIN REACH OF THE PATIENT. APPLICABLE ISOLATION PRECAUTIONS IN PLACE. WILL CONTINUE TO MONITOR AND REASSESS FOR ANY CHANGES AND WILL CARRY OUT ANY ONGOING AND ACTIVE MD ORDER.
[2020-05-06] MEDS: CEFEPIME 1 GM in IV D5W 50 ML IV SCH (20:47)
--- NOTE | 2020-05-06 23:00 | NUR ---
RN NOTES PATIENT REMAINS IN NO ACUTE RESPIRATORY DISTRESS AT THIS TIME, NO CHANGES TO CONDITION/STATUS. CLINICAL DOCUMENT IMPROVEMENT EDUCATOR WELL AWARE. WILL CONTINUE TO MONITOR AND REASSESS FOR ANY CHANGES THROUGHOUT THE SHIFT
[2020-05-07] VITALS: BP 138/60
--- NOTE | 2020-05-07 00:21 | NUR ---
RN NOTES NOTED PT'S TEMP 100.@0000. PRN MEDS GIVEN AND COOLING MEASURES PROVIDED. DOUBLE END TENONER SETTER MADE AWARE. WILL RE-EVALUATE AFTER 30 MINUTES- 1 HOUR. WILL CONTINUE TO MONITOR AND ASSESS THROUGHOUT THE SHIFT
[2020-05-07 04:00] VITALS: BP 149/69
[2020-05-07 06:41] LABS: BASOPHILS # (AUTO) 0.1 /CMM (0.0-0.2); BASOPHILS % (AUTO) 0.9 % (0.0-2.0); EOSINOPHILS % (AUTO) 6.5 % (0.0-6.0); HEMATOCRIT 23 % (39-51); HEMOGLOBIN 8.2 g/dL (13.5-17.5); LYMPHOCYTES # (AUTO) 0.4 /CMM (0.8-4.8); LYMPHOCYTES % (AUTO) 4.1 % (20.0-44.0); MEAN CORPUSCULAR HGB CONC 35 g/dl (31.0-36.0); MEAN CORPUSCULAR VOLUME 93 fL (80-96); MONOCYTES # (AUTO) 0.5 /CMM (0.1-1.30); MONOCYTES % (AUTO) 5.1 % (2.0-12.0); NEUTROPHILS % (AUTO) 83.4 % (43.0-81.0); PLATELET COUNT (AUTO) 95 /CMM (150-450); RED BLOOD CELL COUNT(AUTO) 2.53 MIL/uL (4.5-6.0); WHITE BLOOD COUNT (AUTO) 9.6 K/uL (4.3-11.0)
--- NOTE | 2020-05-07 06:48 | NUR ---
RN CLOSING NOTE: PATIENT REMAINS IN ROOM RESTING COMFORTABLY.NO SIGNS OF RESPIRATORY DISTRESS PATIENT STILL ON 15L OF OXYGEN VIA NRB MASK;TOLERATING WELL SATURATING @ >95% SP02.SAFETY MEASURES IMPLEMENTED, BED IN LOWEST POSITION, LOCKED, SIDE RAILS UP, CALL LIGHT WITHIN REACH. ALL NEEDS AND ORDERS ADDRESSED DURING THE SHIFT. IV ACCESS MAINTAINED INTACT, SECURED AND FLUSHING WELL. ALL DUE MEDS GIVEN ORDERED & SCHEDULED ; PATIENT TOLERATED WELL. PATIENT KEPT CLEAN AND COMFORTABLE WITHIN THE SHIFT. PATIENT ENDORSED TO INCOMING SHIFT RN WITH STABLE VITAL SIGN AND FOR CONTINUITY OF CARE.
[2020-05-07 07:08] LABS: CALCIUM, SERUM 8.4 mg/dL (8.5-10.1); CREATININE 4.3 mg/dL (0.6-1.3); POTASSIUM 3.6 mmol/L (3.5-5.1)
--- NOTE | 2020-05-07 07:46 | NUR ---
RN OPENING NOTE PATIENT IS IN BED WITH HOB AT [facility]. PATIENT IS AOX4. NRB APPLIED AT 15L WITH NO SIGNS OF LABORED BREATHING. SR NOTED ON MONITOR. URINAL IS AT BEDSIDE. RFA #18 IS PATENT, INTACT, AND HAS NO SIGNS OF INFILTRATION. SKIN IS INTACT. BED IS LOCKED IN THE LOWEST POSITION, 3 GUARD RAILS RAISED, CALL GAN WITHIN REACH, AND ALL HOSPITAL SAFETY PRECAUTIONS ARE BEING FOLLOWED. WILL CONTINUE TO MONITOR THROUGHOUT SHIFT.
[2020-05-07 08:00] VITALS: BP 140/59
[2020-05-07] MEDS: ESCITALOPRAM OXALATE (10 MG) 10 MG TABLET PO SCH (08:38)
[2020-05-07] MEDS: VIT B CMPLX 3/FA/VIT C/BIOTIN 1 TAB TABLET PO SCH (08:38)
[2020-05-07] MEDS: AMLODIPINE BESYLATE 10 MG TABLET PO SCH (08:38)
[2020-05-07] MEDS: SEVELAMER CARBONATE 800 MG TABLET PO SCH ×3 (08:38→18:07)
[2020-05-07 12:00] VITALS: BP 135/62
[2020-05-07 13:38] LABS: BAND % (MANUAL) 5 % (0.0-5.0); EOSINOPHILS % (MANUAL) 6 % (0-4); LYMPHOCYTES % (MANUAL) 5 % (16-48); METAMYELOCYTES % 1 % (0-0); MONOCYTES % (MANUAL) 10 % (0-11.0); MYELOCYTES % 1 % (0-0); NEUTROPHILS % (MANUAL) 72 (42-76)
[2020-05-07 16:00] VITALS: BP 129/63
--- NOTE | 2020-05-07 17:37 | NUR ---
AUTOMATIC DRILL OPERATOR NOTE APPLIED PNEUMATIC COMPRESSION DEVICES TO PATIENT'S LEGS BILATERALLY. WILL CONTINUE TO MONITOR.
--- NOTE | 2020-05-07 19:25 | NUR ---
RN OPENING NOTES: RECEIVED PT A/OX4 IN BED RESTING COMFORTABLY. PATIENT IN NO S/SX OF ACUTE DISTRESS AT THIS TIME. NO SOB NOTED. PATIENT'S BREATHING IS EVEN AND UNLABORED. PATIENT IS ON 15L OF OXYGEN VIA NRB MASK; TOLERATING WELL. PATIENT ON TELE MONITORING READING SINUS RHYTHM ; HR IS AT 80s AT THE TIME OF RECEIVED. PATIENT ON RENAL STANDARD DIET. NOTED IV SITE ON L FA #18;PATENT, INTACT AND FLUSHING WELL; NO S/S OF INFECTION OR INFILTRATION. PT ALSO HAS L UA AV SHUNT AND L CW P CATH BOTH SECURED AND INTACT. SAFETY MEASURES HAVE BEEN PROVIDED AND IMPLEMENTED. PATIENT BED ALARM IS ON. HEAD OF BED ELEVATED. BED IS LOCKED, IN LOWEST POSITION AND SIDE RAILS UP. CALL LIGHT WITHIN REACH OF THE PATIENT. APPLICABLE ISOLATION PRECAUTIONS IN PLACE. WILL CONTINUE TO MONITOR AND REASSESS FOR ANY CHANGES AND WILL CARRY OUT ANY ONGOING AND ACTIVE MD ORDER.
--- NOTE | 2020-05-07 19:32 | NUR ---
RN CLOSING NOTE PATIENT IS IN BED WITH HOB AT SEMI FOWLERS POSITION. PATIENT IS AOX4. NRB AT 15L IS APPLIED. PATIENT IS STABLE WITH A NS RHYTHM NOTED ON MONITOR. URINAL IS AT BEDSIDE. PNEUMATIC COMPRESSION DEVICES ARE APPLIED. RWRIST ACCESS IS PATENT, INTACT, AND HAS NO SIGNS OF INFILTRATION. BED IS LOCKED IN THE LOWEST POSITION, CALL GAN WITHIN REACH, 3 GUARD RAILS RAISED, AND ALL HOSPITAL SAFETY PRECAUTIONS ARE BEING FOLLOWED. INFORMATION ENDORSED TO GIS INSTRUCTOR RN KATHY.
[2020-05-07 20:00] VITALS: BP 140/51
[2020-05-07] MEDS: CEFEPIME 1 GM in IV D5W 50 ML IV SCH (20:12)
--- NOTE | 2020-05-07 23:00 | NUR ---
RN NOTES PATIENT REMAINS IN NO ACUTE RESPIRATORY DISTRESS AT THIS TIME, NO CHANGES TO CONDITION/STATUS. INSURANCE CLAIMS CLERK WELL AWARE. WILL CONTINUE TO MONITOR AND REASSESS FOR ANY CHANGES THROUGHOUT THE SHIFT
[2020-05-08] VITALS: BP 146/54
--- NOTE | 2020-05-08 03:00 | NUR ---
RN NOTES NO CHANGES IN PATIENT CONDITION AT THIS TIME PATIENT VITALS STABLE, NO SIGNS OF ACUTE RESPIRATORY DISTRESS, O2 SAT IS AT 99% AT THIS TIME. PATIENT STILL IN BED SLEEPING COMFORTABLY. NO COMPLAINTS OF PAIN OR ANY DISCOMFORT AT THIS TIME. WILL CONTINUE TO MONITOR AND REASSESS FOR ANY CHANGES THROUGHOUT THE SHIFT.
[2020-05-08 04:00] VITALS: BP_SYST 129; BP_DIAS 57; BP_DIAS 63
--- NOTE | 2020-05-08 04:35 | NUR ---
RN NOTES CALLED 3W, SPOKE WITH NIGEL MOLINA. PROVIDED ENDORSEMENT REPORT FOR MARIANELA/ TRANSFER OF PATIENT FROM [facility] TO [facility] IN RM 308 BED#2. ALL PERTINENT INFO ABOUT PT'S STATUS AND CONDITION PROVIDED. NIGEL MOLINA ACKNOWLEDGED. FARM FORESTRY AND GARDEN WORKERS MADE AWARE.
--- NOTE | 2020-05-08 05:00 | NUR ---
RECEIVED PT FROM NARENDRA MANNING, VIA VENTURA/RUDDY. PT IS A/O X4, NORWEGIAN SPEAKING PRIMARILY, UNDERSTANDS SPEAKS SOME YI ABLE TO MAKE NEEDS KNOWN. PT IS ON 15L OF O2 NONREBREATHER MASK TOLERATING WELL. NO S/S OF RESP DISTRESS NOTED. BREATHING IS EVEN AND UNLABORED. PT USES URINAL. IV SITE FLUSHED. SKIN INTACT. LEFT CHEST WALL HD ACCESS, LEFT AV FISTULA NOTED. SIGN POSTED NO BP OR LAB DRAW ON LEFT ARM. PT DENIES PAIN. PT AFEBRILE. BELONGINGS AT PT BEDSIDE. SAFETY MEASURES IN PLACE. HOB ELEVATED. SIDE RAILS UP X2, BED LOCKED IN LOWEST POSITION, BED ALARM ON. CALL LIGHT WITHIN REACH. WILL CONT TO MONITOR VITAL SIGNS UPON ARRIVAL T 98.1 P78 BP 137/53 RR 20 O2SAT 100%
--- NOTE | 2020-05-08 05:10 | NUR ---
RN NOTES PATIENT TRANSFERRED TO ROOM 308 BED 2 OF 3W USING THE ACLS PROTOCOL. PATIENT SAFETY WAS MAINTAINED. ALL PATIENT BELONGINGS AND MEDS TRANSFERRED WITH THE PATIENT. JESSE RN RECEIVED THE PATIENT AND WILL CONTINUE CARE. MANAGER SOCIAL MADE AWARE AND MANAGER SOCIAL FROM 3W ALSO MADE AWARE OF TRANSFER.
--- NOTE | 2020-05-08 05:20 | NUR ---
RN NOTES CALLED PT'S DAUGHTER CARLOZ AND ADVISED THAT COVID RESULT (PCR) CAME OUT NEGATIVE AND PATIENT HAS BEEN TRANSFERRED TO 3W [id number] BED#2. CARLOZ ACKNOWLEDGED. DRYWALL WORKER MADE AWARE.
--- NOTE | 2020-05-08 07:23 | NUR ---
RN CLOSING NOTES NO SIGNIFICANT CHANGES SINCE PT WAS BROUGHT UP, AT THIS TIME PT IS STILL RESTING AT THIS TIME. NO SOB OR RESP DISTRESS NOTED. PT STILL ON 15L OF O2, TOLERATING WELL. ALL DUE MEDS GIVEN, NEEDS ATTENDED, PT DENIES PAIN IS AFEBRILE. PT IS COOPERATIVE WITH CARE, SAFETY MEASURES IN PLACE, HOB ELEVATED SIDE RAILS UP X 2, BED IS LOCKED IN LOWEST POSITION CALL LIGHT WITHIN REACH. WILL ENDORSE TO AM NURSE FOR CONTINUATION OF CARE.
[2020-05-08 08:00] VITALS: BP_SYST 113; BP_SYST 132; BP_DIAS 52; BP_DIAS 74
--- NOTE | 2020-05-08 08:00 | NUR ---
RN OPENING NOTES Patient is resting in bed, A/Ox4, showing no signs of acute distress or SOB, saturating 92% on 3L nasal cannula. New Iv line in the RFA #18g is clean and intact flushing well. Patient denies any pain or discomfort at this time. Will continue with plan of care.
[2020-05-08 08:04] LABS: CALCIUM, SERUM 8.3 mg/dL (8.5-10.1); CREATININE 5.3 mg/dL (0.6-1.3); POTASSIUM 3.8 mmol/L (3.5-5.1)
[2020-05-08] MEDS: SEVELAMER CARBONATE 800 MG TABLET PO SCH ×3 (08:34→17:43)
[2020-05-08] MEDS: ESCITALOPRAM OXALATE (10 MG) 10 MG TABLET PO SCH (08:34)
[2020-05-08] MEDS: VIT B CMPLX 3/FA/VIT C/BIOTIN 1 TAB TABLET PO SCH (08:34)
[2020-05-08] MEDS: AMLODIPINE BESYLATE 10 MG TABLET PO SCH (08:36)
[2020-05-08 16:00] VITALS: BP 124/54
[2020-05-08] MEDS ORDERED: VANCOMYCIN 500 MG in IV D5W 100ml IV ONE (18:00)
--- NOTE | 2020-05-08 18:34 | NUR ---
RN CLOSING NOTES Patient is resting in bed, A/Ox4, showing no signs of acute distress or SOB, saturating 97% on 3L nasal cannula. New Iv line inserted in the right wrist #20g clean and intact flushing well. S/P HD today with 2000cc out. All patient needs met, all due medications given, patient kept clean and dry throughout shift. Patient denies any pain or discomfort during the shift. Will endorse to shift leader for MARIANELA.
--- NOTE | 2020-05-08 19:51 | NUR ---
MS RN OPENING NOTES PATIENT A/O X4 ABLE TO MAKE NEEDS KNOWN. ON O2 3LPM VIA NASAL CANNULA; TOLERATING WELL. IV #20 TO RFA INFUSING VANCO @ 100ML/HR; PATENT AND INTACT. L CHEST HD ACCESS NOTED. AV FISTULA TO YOVANA INTACT; DRESSING KEPT C/D/I. SAFETY MEASURES IN PLACE: BED LOCKED IN LOWEST POSITION; SIDE RAILS UP X2; CALL LIGHT WITHIN EASY REACH, HOB AT SEMI-FOWLERS POSITION. WILL CONTINUE TO MONITOR.
[2020-05-08 20:00] VITALS: BP 131/52
[2020-05-08] MEDS: CEFEPIME 1 GM in IV D5W 50 ML IV SCH (21:32)
[2020-05-09] VITALS (7 sets, daily range): BP systolic 120–149; BP diastolic 54–72
[2020-05-09 07:06] LABS: ALBUMIN 2.6 g/dL (3.4-5.0); BILIRUBIN,TOTAL 1.1 mg/dL (0.2-1.0); CALCIUM, SERUM 8.5 mg/dL (8.5-10.1); CREATININE 4.6 mg/dL (0.6-1.3); POTASSIUM 3.5 mmol/L (3.5-5.1)
--- NOTE | 2020-05-09 07:30 | NUR ---
MS/RN OPENING NOTE Received patient awake in bed, A&O x 3, Burkinan speaking. Denies any pain/discomfort at this time. Breathing even and non-labored on 2L oxygen via NC, no SOB noted. No cardiac distress noted. IV access noted on R FA #20, patent and intact, and flushing well. L chest wall portacath noted. YOVANA fistula noted with bruit and thrill. Bed locked to its lowest position, side rails x 2 up, call light in hand. Will continue with current medical management.
--- NOTE | 2020-05-09 07:45 | NUR ---
MS/RN NOTE Patient took off nasal cannula, appears well and comfortable, no respiratory distress noted, saturating at 96-98% on RA. Will continue to monitor.
--- NOTE | 2020-05-09 08:03 | NUR ---
MS RN CLOSING NOTES PATIENT A/O X4 ABLE TO MAKE NEEDS KNOWN. ON O2 2LPM VIA NASAL CANNULA; TOLERATING WELL. IV #20 TO RFA; PATENT AND INTACT. L CHEST HD ACCESS NOTED. AV FISTULA TO YOVANA INTACT; DRESSING KEPT C/D/I. SAFETY MEASURES IN PLACE: BED LOCKED IN LOWEST POSITION; SIDE RAILS UP X2; CALL LIGHT WITHIN EASY REACH, HOB AT SEMI-FOWLERS POSITION. ENDORSED MARIANELA TO ONCOMING NURSE.
[2020-05-09] MEDS: SEVELAMER CARBONATE 800 MG TABLET PO SCH ×3 (08:16→17:41)
[2020-05-09] MEDS: AMLODIPINE BESYLATE 10 MG TABLET PO SCH (08:17)
[2020-05-09] MEDS: VIT B CMPLX 3/FA/VIT C/BIOTIN 1 TAB TABLET PO SCH (08:17)
[2020-05-09] MEDS: ESCITALOPRAM OXALATE (10 MG) 10 MG TABLET PO SCH (08:17)
[2020-05-09] MEDS ORDERED: LEVO500T90 PO (08:58)
[2020-05-09 09:46] LABS: BASOPHILS # (AUTO) 0.1 /CMM (0.0-0.2); BASOPHILS % (AUTO) 1.1 % (0.0-2.0); EOSINOPHILS % (AUTO) 6.2 % (0.0-6.0); HEMATOCRIT 21 % (39-51); LYMPHOCYTES # (AUTO) 0.6 /CMM (0.8-4.8); LYMPHOCYTES % (AUTO) 7.3 % (20.0-44.0); MEAN CORPUSCULAR HGB CONC 33 g/dl (31.0-36.0); MEAN CORPUSCULAR VOLUME 95 fL (80-96); MONOCYTES # (AUTO) 0.8 /CMM (0.1-1.30); MONOCYTES % (AUTO) 9.8 % (2.0-12.0); NEUTROPHILS # (AUTO) 5.9 /CMM (1.8-8.9); NEUTROPHILS % (AUTO) 75.6 % (43.0-81.0); PLATELET COUNT (AUTO) 124 /CMM (150-450); WHITE BLOOD COUNT (AUTO) 7.9 K/uL (4.3-11.0)
[2020-05-09 09:49] LABS: HEMOGLOBIN 6.9 g/dL (13.5-17.5)
--- NOTE | 2020-05-09 09:49 | NUR ---
MS/RN NOTE Patient's redraw of hemoglobin resulted 6.9 and hematocrit 21, notified Dr. Ochoa, awaiting for orders.
[2020-05-09 10:44] LABS: BAND % (MANUAL) 29 % (0.0-5.0); BASOPHILS % (MANUAL) 1 % (0.0-2.0); EOSINOPHILS % (MANUAL) 7 % (0-4); LYMPHOCYTES % (MANUAL) 11 % (16-48); MONOCYTES % (MANUAL) 8 % (0-11.0); NEUTROPHILS % (MANUAL) 44 (42-76)
--- NOTE | 2020-05-09 11:00 | NUR ---
MS/RN NOTE Paged Dr. Ochoa for blood transfusion orders for patient. Awaiting for call back.
--- NOTE | 2020-05-09 11:45 | NUR ---
MS/RN NOTE Dr. Ochoa called back regarding patient's hemoglobin 6.9 and hematocrit 21, orders to transfuse 1 unit of PRBC stat, and to discharge right after if stable. Orders carried out.
--- NOTE | 2020-05-09 11:45 | NUR ---
MS/RN NOTE Clarified with Dr. Ochoa whether he wants a H&H draw post transfusion, states "no need, he can go home right after transfusion." Order carried out.
--- NOTE | 2020-05-09 15:14 | NUR ---
MS/RN NOTE Initiated blood transfusion running at 60 ml/hr. No adverse effects noted, patient is well and stable. VS taken and remained at bedside for 15 minutes for close monitoring.
--- NOTE | 2020-05-09 15:29 | NUR ---
MS/RN NOTE Patient remains stable, increased blood transfusion to 120 ml/hr. No adverse effects noted. Will continue to monitor.
--- NOTE | 2020-05-09 16:00 | NUR ---
MS/RN NOTE Increased blood transfusion to 150 ml/hr, tolerating well. No acute distress or adverse effects noted during transfusion.
--- NOTE | 2020-05-09 17:10 | NUR ---
MS/RN NOTE Transfusion ended, patient tolerated well. VSS, afebrile, no SOB noted. No adverse effects noted during the whole blood transfusion.
--- NOTE | 2020-05-09 18:00 | NUR ---
MS/RN NOTE Patient refused sevelamer medication as scheduled, states "I just want to go home." Educated risks and benefits, pt insists on refusal.
--- NOTE | 2020-05-09 18:44 | NUR ---
MS/RN NOTE PATIENT REFUSING TO HAVE ANOTHER BLOOD DRAW, STATES THAT HE JUST WANTS TO GO HOME. EDUCATED RISKS AND BENEFITS, INSISTS ON REFUSAL. Addendum: 05/09/20 at 1848 by LUCAS LEW RN CORRECTION ON TIME CHARTED, SHOULD BE AT 1820
--- NOTE | 2020-05-09 18:45 | NUR ---
MS/SANDWICH ARTIST NOTES Patient remained stable, VSS, no s/s of acute distress or bleeding noted. Denies any pain/discomfort throughout shift. Breathing even and non-labored on RA, no SOB noted. No cardiac distress noted. IV access on R FA #20 removed with catheter intact, placed clean dry dressing and pressure on site. No s/s of bleeding, infiltration, or infection noted on site. No new skin impairments noted. Educated patient and his daughter Karely regarding discharge instructions, answered all their questions to their satisfaction, both verbalized understanding. Patient left safely at 1845 along with all hospital documents and belongings in hand.
== END 2020-05-09 18:40 | disposition home health service (06) | DRG 871 ==
LOC: ER 17:21 → TELE-TD 21:34 → ICUOV 05-05 04:41 → TELE1 05-05 08:49 → TELE 05-08 05:29 → MED 05-08 08:43
PROVIDERS: ADMIT Nurse Practitioner Acute Care; ATTEND Internal Medicine
PROC: 30233N1 Transfusion of Nonautologous Red Blood Cells into Peripheral Vein, Percutaneous Approach (ICD-10-PCS; 2020-05-04)
PROC: 5A1D70Z Performance of Urinary Filtration, Intermittent, Less than 6 Hours Per Day (ICD-10-PCS; principal; 2020-05-05)
DX: A41.9 Sepsis, unspecified organism (principal); J96.01 Acute respiratory failure with hypoxia; N18.6 End stage renal disease; J15.6 Pneumonia due to other Gram-negative bacteria; I13.2 Hypertensive heart and chronic kidney disease with heart failure and with stage 5 chronic kidney disease, or end stage renal disease; C83.30 Diffuse large B-cell lymphoma, unspecified site; J98.11 Atelectasis; K76.6 Portal hypertension; Z86.16 Personal history of COVID-19; Z99.2 Dependence on renal dialysis; I25.10 Atherosclerotic heart disease of native coronary artery without angina pectoris; I50.9 Heart failure, unspecified; Z91.018 Allergy to other foods; Z79.899 Other long term (current) drug therapy; E78.5 Hyperlipidemia, unspecified; F32.9 Major depressive disorder, single episode, unspecified; K74.60 Unspecified cirrhosis of liver; F17.200 Nicotine dependence, unspecified, uncomplicated; Z20.822 Contact with and (suspected) exposure to COVID-19; N25.0 Renal osteodystrophy; Z91.15 Patient's noncompliance with renal dialysis; D63.1 Anemia in chronic kidney disease; K29.80 Duodenitis without bleeding; K31.89 Other diseases of stomach and duodenum; K25.9 Gastric ulcer, unspecified as acute or chronic, without hemorrhage or perforation; K26.9 Duodenal ulcer, unspecified as acute or chronic, without hemorrhage or perforation; Z83.3 Family history of diabetes mellitus
CPT/HCPCS: 36415; 36600; 71045-TC; 71046; 80048-TC; 80053-TC; 80202-TC; 82140-TC; 82728-TC; 82803-TC; 83735-TC; 84100-TC; 85025-TC; 85378-TC; 85730-TC; 86706; 86850-TC; 87040-TC; 87081-TC; 87340; 90935-TC; G0378; J0692; J0885; J1940; J3370; J3490; J7040; J7050; J7060; P9016-BL; U0003